=== PATIENT | female | born 1945 | race Caucasian/White ===

== ENCOUNTER 2020-04-18 09:03 | Outpatient (REF) | payer MEDICARE, MEDICAID, SELFPAY ==
[2020-04-18 12:24] LABS: Thyroid Stimulating Hormone 0.42 uIU/mL (0.32-4.0)
[2020-04-18 12:26] LABS: Alanine Aminotransferase 17 U/L (0-31); Albumin Level 4.4 g/dL (3.5-5.0); Alkaline Phosphatase 81 U/L (39-117); Anion Gap 15 (12-20); Aspartate Amino Transferase 18 U/L (5-31); Bilirubin Total 0.8 mg/dL (0.0-1.0); Blood Urea Nitrogen 20 mg/dL (9-16); Carbon Dioxide 26 mmol/L (22-29); Chloride 102 mmol/L (96-108); Estimated Glomerular Filt Rate > 60; Glucose Fasting 91 mg/dL (60-99); Potassium 4.2 mmol/l (3.3-5.1); Sodium 139 mmol/L (135-145)
== END 2020-04-18 09:04 | disposition home or self-care (01) ==
LOC: HO.HMGCLDS 09:03
PROVIDERS: PCP Internal Medicine; Visit Provider Internal Medicine
DX: E78.5 Hyperlipidemia, unspecified (principal); I10 Essential (primary) hypertension; R00.2 Palpitations
CPT/HCPCS: 80053; 84443

== ENCOUNTER → 2020-05-19 13:10 | Outpatient (REF) | payer MEDICARE, MEDICAID, SELFPAY ==
--- NOTE | 2020-05-19 13:15 | ECG_ITS ---
Hook-up date: 2020-05-19 13:27:00 Duration: 25:55:00 Test Indications: PALPITATIONS Medications: 062279 QRS complexes 777 Ventricular ectopics which represent <1 % of total QRS comp. 412 Supraventricular ectopics which represent <1 % of total QRS comp. * Paced QRS complexs which represent % of total QRS comp. VENTRICULAR ECTOPY 773 Isolated 0 Bigeminal Cycles 2 Couplets 0 Runs 0 Beats in Runs * Beats LONGEST at * BPM at :: -- * Beats FASTEST at * BPM at :: -- SUPRAVENTRICULAR ECTOPY 371 Isolated 13 Couplets 3 Runs 15 Beats in Runs 7 Beats LONGEST at 111 BPM at 20:34:39 2020-05-19 3 Beats FASTEST at 159 BPM at 20:34:35 2020-05-19 HEART RATES 46 MIN at 02:04:03 2020-05-20 76 AVG 212 MAX at 16:30:42 2020-05-19 LONGEST RR 1.8320 secs at 23:26:36 2020-05-19 S-T LEVELS Channel 1 - 128 mm at 13:27:00 2020-05-19 - 128 mm at 13:27:00 2020-05-19 Channel 2 - 128 mm at 13:27:00 2020-05-19 - 128 mm at 13:27:00 2020-05-19 Channel 3 - 128 mm at 03:24:61 -- - 128 mm at 03:24:61 Basic rhythm Normal sinus rhythm Intermittent Atrial fibrillation with rapid ventricular response , 14% of total time No long pause or profound bradycardia Short episodes of ectopic atrial tachycardia Frequent Premature ventricular complexes No diary submitted Referred By: Faith Elizondo Overread By: ART LANCASTER MD
== END ==
LOC: HO.CARD 13:10
PROVIDERS: PCP Internal Medicine; Visit Provider Internal Medicine
DX: R00.2 Palpitations (principal); E78.5 Hyperlipidemia, unspecified; I10 Essential (primary) hypertension
CPT/HCPCS: 93225; 93226

== ENCOUNTER 2020-10-17 14:34 | Outpatient (REF) | payer MEDICARE, MEDICAID, SELFPAY ==
[2020-10-17 16:42] LABS: Hematocrit 37.9 % (37-47); Hemoglobin 12.3 g/dl (12.0-16.0); Mean Corpuscular HGB Conc 32.5 g/dl (31.0-35.0); Mean Corpuscular Volume 89.4 fL (80-98); Mean Platelet Volume 10.6 fL (9.4-12.3); Platelet Count 337 X10*3/uL (160-400); Red Blood Count 4.24 X10*6/uL (4.20-5.50); White Blood Count 10.8 X10*3/uL (4.8-10.8)
[2020-10-17 17:08] LABS: Alanine Aminotransferase 22 U/L (0-31); Albumin Level 4.5 g/dL (3.5-5.0); Alkaline Phosphatase 93 U/L (39-117); Anion Gap 15 (12-20); Aspartate Amino Transferase 22 U/L (5-31); Bilirubin Total 0.9 mg/dL (0.0-1.0); Blood Urea Nitrogen 18 mg/dL (9-16); Calcium 9.5 mg/dL (8.4-10.2); Carbon Dioxide 25 mmol/L (22-29); Chloride 102 mmol/L (96-108); Estimated Glomerular Filt Rate > 60; Glucose Random 87 mg/dL (60-115); Potassium 4.2 mmol/L (3.3-5.1); Sodium 138 mmol/L (135-145); Total Protein 8.3 g/dL (6.5-8.0)
[2020-10-17 17:30] LABS: Vitamin B12 345 pg/mL (200-900)
== END 2020-10-17 14:35 | disposition home or self-care (01) ==
LOC: HO.HMGCLDS 14:34
PROVIDERS: PCP Internal Medicine; Visit Provider Internal Medicine
DX: E78.5 Hyperlipidemia, unspecified (principal); I10 Essential (primary) hypertension; I48.91 Unspecified atrial fibrillation
CPT/HCPCS: 36415; 80053; 82306; 82607; 85027

== ENCOUNTER 2021-01-22 08:23 | Outpatient (REF) | payer MEDICARE, MEDICAID, SELFPAY ==
[2021-01-22 11:45] LABS: Hematocrit 36.6 % (37-47); Hemoglobin 11.8 g/dl (12.0-16.0); Mean Corpuscular HGB Conc 32.2 g/dl (31.0-35.0); Mean Corpuscular Hemoglobin 28.6 pg (27.0-33.0); Mean Corpuscular Volume 88.6 fL (80-98); Mean Platelet Volume 10.5 fL (9.4-12.3); Platelet Count 304 X10*3/uL (160-400); Red Blood Count 4.13 X10*6/uL (4.20-5.50); Red Cell Distribution Width 13.1 % (11.0-16.0); White Blood Count 10.6 X10*3/uL (4.8-10.8)
[2021-01-22 11:47] LABS: Alanine Aminotransferase 16 U/L (0-31); Albumin Level 4.3 g/dL (3.5-5.0); Alkaline Phosphatase 89 U/L (39-117); Anion Gap 11 (12-20); Aspartate Amino Transferase 17 U/L (5-31); Bilirubin Total 0.6 mg/dL (0.0-1.0); Blood Urea Nitrogen 12 mg/dL (9-16); Calcium 9.6 mg/dL (8.4-10.2); Carbon Dioxide 28 mmol/L (22-29); Chloride 103 mmol/L (96-108); Estimated Glomerular Filt Rate > 60; Glucose Fasting 91 mg/dL (60-99); Potassium 4.1 mmol/L (3.3-5.1); Sodium 138 mmol/L (135-145); Total Protein 7.8 g/dL (6.5-8.0)
== END 2021-01-22 08:24 | disposition home or self-care (01) ==
LOC: HO.HMGCLDS 08:23
PROVIDERS: PCP Internal Medicine; Visit Provider Internal Medicine
DX: I48.91 Unspecified atrial fibrillation (principal); F41.9 Anxiety disorder, unspecified; E78.5 Hyperlipidemia, unspecified
CPT/HCPCS: 36415; 80053; 84443; 85027

== ENCOUNTER → 2021-03-06 08:13 | Outpatient (REF) | payer MEDICARE, MEDICAID, SELFPAY ==
--- NOTE | 2021-03-06 08:19 | CA_ITS ---
Transthoracic Echocardiogram Patient (Last, First, Middle): Rylie Villagomez, Gender: Female Date of : 1945 Age: 75 Procedure Date: 03/06/2021 Procedure Type: Transthoracic Echocardiogram Location: OP Height: 160.02 cm Weight: 77.11 kg BSA: 1.80 m2 Heart Rate: bpm BP: 120 / 90 mmHg Bandmill Operator: JOSE RAUL/MELONY Referring MD: Faith Elizondo MD Symptoms: I48.91 - Unspecified atrial fibrillation Study Quality: Fair Conclusions: - The left ventricular systolic function is low normal. The visually estimated ejection fraction is between 50-55%. - Normal right ventricular cavity size and systolic function. - There is mild mitral valve regurgitation. - There is mild to moderate tricuspid valve regurgitation. - There is no evidence of pericardial effusion. Findings Left Ventricle Normal left ventricular cavity size. There is normal left ventricular wall thickness. The left ventricular systolic function is low normal. The visually estimated ejection fraction is between 50-55%. Diastolic function is indeterminate on the basis of available data. Right Ventricle Normal right ventricular cavity size and systolic function. Atria The left atrium is likely dilated. Aortic Valve There is a normal trileaflet aortic valve. There is mild thickening of the aortic valve. There is no aortic valve stenosis. There is no aortic valve regurgitation. Mitral Valve The mitral valve appears normal. There is mild mitral valve regurgitation. There is no mitral valve stenosis. Pulmonic Valve Normal pulmonic valve structure and function. There is no pulmonic valve regurgitation. Tricuspid Valve Normal tricuspid valve structure. There is mild to moderate tricuspid valve regurgitation. Normal right atrial pressure. There is no evidence of pulmonary hypertension. Great Vessels All visible segments of the aorta are normal in size. The visualized portions of the pulmonary artery and branches are normal. Venous The inferior vena cava is normal in size and collapses greater than 50% with inspiration. Pericardium/Pleural There is no evidence of pericardial effusion. Prior Study Comparison No prior study available for comparison. Measurements 2D Linear Measurements IVSd: 0.85 0.6-0.9/0.6-1.0 cm LVIDd: 4.04 3.9-5.3/4.2-5.9 cm LVIDd Index: 2.24 2.4-3.2/2.2-3.1 cm/m2 LVIDs: 3.22 2.0-3.6 cm LVPWd: 0.88 0.7-1.1 cm Ao Root: 3.10 2.1-3.5 cm LA Diam: 3.90 2.7-3.8/3.0-4.0 cm LAIDs Index: 2.17 1.5-2.3 cm/m2 LV Mass: 132.04 67-162/88-224 g LV Mass Index: 73.36 43-95/49-115 g/m2 LVOT Diam: 2.00 3.0+(-)1.3 cm 2D Systolic Function EF 4C: 36.20 >55% EF 2C: 37.80 >55% Mitral Valve E'Lateral: 2.83 E'Medial: 3.26 Aortic Valve AoV Pk Camron: 0.98 AoV Mn Camron: 0.81 AoV VTI: 0.18 AoV Pk Grad: 4.00 Aov Mn Grad: 3.00 TASHIA Cont.VTI: 2.08 LVOT LVOT Pk Camron: 0.71 LVOT Mn Camron: 0.56 LVOT VTI: 0.12 LVOT Pk Grad: 2.00 LVOT Mn Grad: 1.00 LVOT Diam: 2.00 LVOT Area: 3.14 Diastolic Function E'Medial: 3.26 E' Laterial: 2.83 Right Ventricle TAPSE (mm): 1.30 TVS' Camron: 7.62 Tricuspid Valve TR Pk Camron: 2.66 TR Pk Grad: 28.00 RA Press: 3.00 RVSP: 31.00 Great Vessels Aorta Ao Root-2D: 3.10 2.0-3.7 cm Ao Asc: 3.00 2.1-3.4 cm Ao Arch: 2.80 Updated in Other Vendor System with Status of Final John Gonzalez MD electronically signed on 03/08/2021 1:31:36 PM with status of Final
== END ==
LOC: HO.CARD 08:13
PROVIDERS: PCP Internal Medicine; Visit Provider Internal Medicine
DX: I48.91 Unspecified atrial fibrillation (principal); F41.9 Anxiety disorder, unspecified; E78.5 Hyperlipidemia, unspecified
CPT/HCPCS: 93306

== ENCOUNTER 2021-08-10 08:39 | Outpatient (REF) | payer MEDICARE, MEDICAID, SELFPAY ==
[2021-08-10 11:53] LABS: Hematocrit 37.1 % (37.0-47.0); Hemoglobin 11.6 g/dl (12.0-16.0); Mean Corpuscular HGB Conc 31.3 g/dl (31.0-35.0); Mean Corpuscular Hemoglobin 28.3 pg (27.0-33.0); Mean Corpuscular Volume 90.5 fL (80.0-98.0); Mean Platelet Volume 10.5 fL (9.4-12.3); Platelet Count 281 X10*3/uL (160-400); White Blood Count 8.5 X10*3/uL (4.8-10.8)
[2021-08-10 12:26] LABS: Alanine Aminotransferase 15 U/L (0-31); Alkaline Phosphatase 75 U/L (39-117); Anion Gap 13 (12-20); Aspartate Amino Transferase 16 U/L (5-31); Bilirubin Total 0.5 mg/dL (0.0-1.0); Blood Urea Nitrogen 19 mg/dL (9-16); Calcium 9.2 mg/dL (8.4-10.2); Carbon Dioxide 26 mmol/L (22-29); Chloride 105 mmol/L (96-108); Cholesterol 174 mg/dL; Estimated Glomerular Filt Rate > 60; Glucose Fasting 103 mg/dL (60-99); HDL Cholesterol 43 mg/dL; Iron 61 mcg/dL (30-160); LDL Cholesterol Calculated 107 mg/dl; Percent Iron Saturation 18 % (15-50); Potassium 4.4 mmol/L (3.3-5.1); Sodium 140 mmol/L (135-145); Total Iron Binding Capacity 343 mcg/dL (228-428); Total Protein 7.7 g/dL (6.5-8.0); Triglycerides 120 mg/dL; Unsaturated Iron Binding 282 ug/dL
[2021-08-10 12:28] LABS: TSH reflex Free T4 0.77 uIU/mL (0.32-4.0)
== END 2021-08-10 08:40 | disposition home or self-care (01) ==
LOC: HO.HMGCLDS 08:39
PROVIDERS: PCP Internal Medicine; Visit Provider Internal Medicine
DX: F41.9 Anxiety disorder, unspecified (principal); I10 Essential (primary) hypertension; I48.91 Unspecified atrial fibrillation
CPT/HCPCS: 36415; 80053; 80061; 83540; 84443; 85027

== ENCOUNTER 2022-02-16 09:31 | Outpatient (REF) | payer MEDICARE, MEDICAID, SELFPAY ==
[2022-02-16 11:51] LABS: MANUAL DIFF FLAG NO
[2022-02-16 12:05] LABS: Basophils Absolute Auto 0.1 X10*3/uL (0.0-0.2); Basophils Percent Auto 0.5 % (0-2); Eosinophils Absolute Auto 0.5 X10*3/uL (0.0-0.4); Eosinophils Percent Auto 4.4 % (0-4); Hematocrit 38.8 % (37.0-47.0); Hemoglobin 12.5 g/dl (12.0-16.0); Imm Gran Abs Auto 0.12 X10*3/uL (0.00-0.03); Imm Gran Pct Auto 1.1 % (0.0-0.4); Lymphocytes Percent Auto 17.9 % (20-40); Mean Corpuscular HGB Conc 32.2 g/dl (31.0-35.0); Mean Corpuscular Hemoglobin 28.7 pg (27.0-33.0); Mean Platelet Volume 10.4 fL (9.4-12.3); Monocytes Absolute Auto 0.9 X10*3/uL (0.1-1.2); Monocytes Percent Auto 8.3 % (2-11); Neutrophils Absolute Auto 7.6 x10*3/uL (2.0-8.3); Neutrophils Percent Auto 67.8 % (45-73); Platelet Count 311 X10*3/uL (160-400); Red Blood Count 4.36 X10*6/uL (4.20-5.50); Red Cell Distribution Width 13.2 % (11.0-16.0); White Blood Count 11.3 X10*3/uL (4.8-10.8)
[2022-02-16 12:46] LABS: TSH reflex Free T4 0.72 uIU/mL (0.32-4.0)
[2022-02-16 12:49] LABS: Alanine Aminotransferase 20 U/L (0-31); Albumin Level 4.3 g/dL (3.5-5.0); Alkaline Phosphatase 85 U/L (39-117); Anion Gap 17 (12-20); Aspartate Amino Transferase 20 U/L (5-31); Bilirubin Total 0.6 mg/dL (0.0-1.0); Blood Urea Nitrogen 14 mg/dL (9-16); Carbon Dioxide 26 mmol/L (22-29); Chloride 102 mmol/L (96-108); Estimated Glomerular Filt Rate > 60; Glucose Random 109 mg/dL (60-115); Potassium 4.6 mmol/L (3.3-5.1); Sodium 140 mmol/L (135-145); Total Protein 7.9 g/dL (6.5-8.0)
[2022-02-16 12:54] LABS: B Type Natriuretic Peptide 188 pg/mL (<100)
== END 2022-02-16 09:32 | disposition home or self-care (01) ==
LOC: HO.HMGCLDS 09:31
PROVIDERS: PCP Internal Medicine; Visit Provider Internal Medicine
DX: R00.2 Palpitations (principal); I10 Essential (primary) hypertension; I48.91 Unspecified atrial fibrillation
CPT/HCPCS: 36415; 80053; 83880; 84443; 85025

== ENCOUNTER → 2022-03-26 07:38 | Outpatient (REF) | payer MEDICARE, MEDICAID, SELFPAY ==
--- NOTE | 2022-03-26 07:41 | HM_ITS ---
Conclusion: 1. Patient was monitored for total period of 3 days 2. Baseline was atrial fibrillation with average heart of 96 beats per minute within adequate rate control with heart rate greater than 100 beats of minute 32% of the time 3. No significant pauses noted 4. Total of 404 PVCs accounting for 0.11% of total beats accounting for occasional PVCs 5. Patient reported 3 events all of which correlated with AFib, 2 of the events while active correlated with atrial fibrillation rapid ventricular response. MTDD
== END ==
LOC: HO.CARD 07:38
PROVIDERS: PCP Internal Medicine; Visit Provider Internal Medicine
DX: I48.91 Unspecified atrial fibrillation (principal); R00.2 Palpitations; I10 Essential (primary) hypertension
CPT/HCPCS: 93242

== ENCOUNTER → 2022-06-01 15:01 | Outpatient (REF) | payer MEDICARE, MEDICAID, SELFPAY ==
--- NOTE | 2022-06-01 15:04 | CA_ITS ---
Transthoracic Echocardiogram Patient (Last, First, Middle): Rylie Villagomez, Gender: Female Date of : 1945 Age: 76 Procedure Date: 06/01/2022 Procedure Type: Transthoracic Echocardiogram Location: OP Height: 157.48 cm Weight: 73.94 kg BSA: 1.75 m2 Heart Rate: bpm BP: 110 / 70 mmHg Pit Hand: TO Referring MD: Faith Elizondo MD Symptoms: I48.91 - Unspecified atrial fibrillation Study Quality: Adequate ECG Rhythm: Atrial Fibrillation Conclusions: - The left ventricular systolic function is mildly decreased. The calculated ejection fraction is 49% by biplane method. - Moderate biatrial enlargement. - No obvious valvular pathology seen on this study. Findings Left Ventricle Normal left ventricular cavity size. There is normal left ventricular wall thickness. The left ventricular systolic function is mildly decreased. The calculated ejection fraction is 49% by biplane method. There is mild global hypokinesis. Diastolic function is indeterminate on the basis of available data. Right Ventricle Normal right ventricular cavity size and systolic function. Atria Moderate biatrial enlargement. Aortic Valve There is a normal trileaflet aortic valve. There is mild calcification of the aortic valve. There is no aortic valve stenosis. There is no aortic valve regurgitation. Mitral Valve The mitral valve appears normal. There is trace mitral valve regurgitation. There is no mitral valve stenosis. Pulmonic Valve The pulmonic valve is likely normal. Tricuspid Valve Normal tricuspid valve structure. There is mild tricuspid valve regurgitation. There is no evidence of pulmonary hypertension. Great Vessels The asc aorta is normal in size. Venous The inferior vena cava is normal in size and collapses greater than 50% with inspiration. Pericardium/Pleural There is no evidence of pericardial effusion. Prior Study Comparison Changes noted compared to prior study dated: 03/06/2021. Marginally lower LVEF, but could also be inter-observer variability. Recommendations, Care & Conclusions No obvious valvular pathology seen on this study. Measurements 2D Linear Measurements IVSd: 0.82 0.6-0.9/0.6-1.0 cm LVIDd: 4.78 3.9-5.3/4.2-5.9 cm LVIDd Index: 2.73 2.4-3.2/2.2-3.1 cm/m2 LVIDs: 3.25 2.0-3.6 cm LVPWd: 0.87 0.7-1.1 cm LA Diam: 4.00 2.7-3.8/3.0-4.0 cm LAIDs Index: 2.29 1.5-2.3 cm/m2 LV Mass: 167.96 67-162/88-224 g LV Mass Index: 95.98 43-95/49-115 g/m2 LVOT Diam: 1.80 3.0+(-)1.3 cm 2D Systolic Function EF 4C: 48.70 >55% EF 2C: 47.70 >55% EF BiP: 48.60 >55% Mitral Valve MV Pk E: 0.81 MV Decel Time: 227.00 E'Lateral: 11.10 E'Medial: 8.05 E/E' Med: 10.10 E/E' Lat: 7.30 PHT: 66.00 MVA PHT: 3.33 Decel [place]: 3.57 Aortic Valve AoV Pk Camron: 1.33 AoV Pk Grad: 7.00 LVOT LVOT Pk Camron: 0.87 LVOT Mn Camron: 0.58 LVOT VTI: 0.15 LVOT Pk Grad: 3.00 LVOT Mn Grad: 2.00 LVOT Diam: 1.80 LVOT Area: 2.54 Diastolic Function MV Pk E: 0.81 E'Medial: 8.05 E/E' Med: 10.10 E' Laterial: 11.10 E/E' Lat: 7.30 Right Ventricle TAPSE (mm): 23.00 TVS' Camron: 13.00 Tricuspid Valve TR Pk Camron: 2.47 TR Pk Grad: 24.00 RA Press: 3.00 RVSP: 27.00 Great Vessels Aorta Ao Asc: 3.20 2.1-3.4 cm Updated in Other Vendor System with Status of Final Meño Iverson MD electronically signed on 06/03/2022 12:50:21 PM with status of Final
== END ==
LOC: HO.CARD 15:01
PROVIDERS: Visit Provider Internal Medicine
DX: I48.91 Unspecified atrial fibrillation (principal); I10 Essential (primary) hypertension; E78.5 Hyperlipidemia, unspecified
CPT/HCPCS: 93306

== ENCOUNTER 2022-07-02 15:16 | Outpatient (REF) | payer MEDICARE, MEDICAID, SELFPAY ==
[2022-07-02 16:30] LABS: MANUAL DIFF FLAG NO
[2022-07-02 16:33] LABS: Basophils Absolute Auto 0.1 X10*3/uL (0.0-0.2); Basophils Percent Auto 0.6 % (0-2); Eosinophils Absolute Auto 0.7 X10*3/uL (0.0-0.4); Eosinophils Percent Auto 5.7 % (0-4); Hematocrit 38.5 % (37.0-47.0); Hemoglobin 12.2 g/dl (12.0-16.0); Imm Gran Pct Auto 0.8 % (0.0-0.4); Lymphocytes Absolute Auto 2.6 X10*3/uL (1.2-4.9); Lymphocytes Percent Auto 21.1 % (20-40); Mean Corpuscular HGB Conc 31.7 g/dl (31.0-35.0); Mean Corpuscular Hemoglobin 28.4 pg (27.0-33.0); Mean Corpuscular Volume 89.5 fL (80.0-98.0); Mean Platelet Volume 10.5 fL (9.4-12.3); Monocytes Absolute Auto 0.9 X10*3/uL (0.1-1.2); Monocytes Percent Auto 7.6 % (2-11); Neutrophils Absolute Auto 7.8 x10*3/uL (2.0-8.3); Neutrophils Percent Auto 64.2 % (45-73); Platelet Count 336 X10*3/uL (160-400); Red Cell Distribution Width 13.2 % (11.0-16.0); White Blood Count 12.2 X10*3/uL (4.8-10.8)
[2022-07-02 17:11] LABS: Alanine Aminotransferase 21 U/L (0-31); Albumin Level 4.4 g/dL (3.5-5.0); Alkaline Phosphatase 90 U/L (39-117); Anion Gap 17 (12-20); Aspartate Amino Transferase 23 U/L (5-31); Bilirubin Total 0.7 mg/dL (0.0-1.0); Blood Urea Nitrogen 17 mg/dL (9-16); Calcium 9.7 mg/dL (8.4-10.2); Carbon Dioxide 25 mmol/L (22-29); Chloride 102 mmol/L (96-108); Estimated Glomerular Filt Rate > 60; Glucose Random 98 mg/dL (60-115); Potassium 4.7 mmol/L (3.3-5.1); Sodium 139 mmol/L (135-145); Total Protein 7.9 g/dL (6.5-8.0)
[2022-07-02 17:26] LABS: TSH reflex Free T4 1.11 uIU/mL (0.32-4.0)
== END 2022-07-02 15:17 | disposition home or self-care (01) ==
LOC: HO.HMGCLDS 15:16
PROVIDERS: PCP Internal Medicine; Visit Provider Internal Medicine
DX: I48.91 Unspecified atrial fibrillation (principal); I10 Essential (primary) hypertension; E78.5 Hyperlipidemia, unspecified
CPT/HCPCS: 36415; 80053; 84443; 85025

== ENCOUNTER → 2022-07-05 12:29 | Outpatient (BNVA) | payer MEDICARE, MEDICAID, SELFPAY | PROVIDERS: PCP Internal Medicine; Referring Provider Internal Medicine; Visit Provider Internal Medicine | DX: I48.91 Unspecified atrial fibrillation (principal); I42.9 Cardiomyopathy, unspecified; R00.1 Bradycardia, unspecified; R00.2 Palpitations; I10 Essential (primary) hypertension | CPT/HCPCS: 99202 ==

== ENCOUNTER → 2022-08-04 07:36 | Outpatient (REF) | payer MEDICARE, MEDICAID, SELFPAY ==
--- NOTE | 2022-08-04 07:37 | HM_ITS ---
* Total monitoring time about 3 days. * Underlying rhythm is atrial fibrillation. * Average ventricular rate 72/Min. Range 40 to 114/Min. * About 28 pauses greater than 2.5 seconds. Longest pause 3 seconds during sleep hours. Not considered significant. * Rare PVCs with minimal burden. * No patient markers or diary. MTDD
== END ==
LOC: HO.CARD 07:36
PROVIDERS: PCP Internal Medicine; Visit Provider Internal Medicine
DX: I48.19 Other persistent atrial fibrillation (principal)
CPT/HCPCS: 93242

== ENCOUNTER → 2022-09-08 09:42 | Outpatient (BNVA) | payer MEDICARE, MEDICAID, SELFPAY | PROVIDERS: PCP Internal Medicine; Referring Provider Internal Medicine; Visit Provider Internal Medicine | DX: I48.19 Other persistent atrial fibrillation (principal); I42.9 Cardiomyopathy, unspecified; I10 Essential (primary) hypertension | CPT/HCPCS: 99212 ==

== ENCOUNTER 2022-09-09 07:17 | Outpatient (REF) | payer MEDICARE, MEDICAID, SELFPAY ==
[2022-09-09 12:07] LABS: Digoxin 0.5 ng/mL (0.8-2.0)
== END 2022-09-09 07:18 | disposition home or self-care (01) ==
LOC: HO.HMGCLDS 07:17
PROVIDERS: PCP Internal Medicine; Visit Provider Internal Medicine
DX: I48.19 Other persistent atrial fibrillation (principal)
CPT/HCPCS: 36415; 80162

== ENCOUNTER 2022-12-02 09:49 | Outpatient (REF) | payer MEDICARE, MEDICAID, SELFPAY ==
--- NOTE | ~2022-12-02 | XR_ITS ---
EXAMINATION: XR THORACIC SPINE CLINICAL INFORMATION: Back strain. COMPARISON: None available. TECHNIQUE: 3 frontal and lateral views of the thoracic spine were obtained. FINDINGS: There is bony demineralization. Vertebral body heights and alignment are normal. There is disc space narrowing at T4-T5. The remaining thoracic disc spaces are well-maintained. No acute fracture or spondylolisthesis is seen. There is multi-level thoracic spondylosis. The posterior elements are intact. The paravertebral soft tissues are unremarkable. XR/XR thoracic spine 2V IMPRESSION: 1. There is degenerative disc disease at T4-T5. 2. There is multi-level thoracic spondylosis. EXAMINATION: XR LUMBOSACRAL SPINE CLINICAL INFORMATION: Back strain. COMPARISON: None available. TECHNIQUE: AP and lateral views of the lumbar spine and lateral view of the lumbosacral junction. FINDINGS: There is bony demineralization. Vertebral body heights are normal. There is a mild lumbar rotatory dextroscoliosis. The lumbar disc spaces are well-maintained. There is a rudimentary disc space at L5-S1. No acute fracture or spondylolisthesis is seen. There is multi-level variable lumbar spondylosis, most pronounced at L5-S1. The posterior elements are intact. There are aortoiliac atherosclerotic calcifications. Pelvic surgical clips are noted. IMPRESSION: 1. The lumbar disc spaces are well-maintained. 2. There is multi-level lumbar spondylosis, most pronounced at L5-S1.
--- NOTE | ~2022-12-02 | XR_ITS ---
EXAMINATION: XR THORACIC SPINE CLINICAL INFORMATION: Back strain. COMPARISON: None available. TECHNIQUE: 3 frontal and lateral views of the thoracic spine were obtained. FINDINGS: There is bony demineralization. Vertebral body heights and alignment are normal. There is disc space narrowing at T4-T5. The remaining thoracic disc spaces are well-maintained. No acute fracture or spondylolisthesis is seen. There is multi-level thoracic spondylosis. The posterior elements are intact. The paravertebral soft tissues are unremarkable. XR/XR lumbar spine 2-3V IMPRESSION: 1. There is degenerative disc disease at T4-T5. 2. There is multi-level thoracic spondylosis. EXAMINATION: XR LUMBOSACRAL SPINE CLINICAL INFORMATION: Back strain. COMPARISON: None available. TECHNIQUE: AP and lateral views of the lumbar spine and lateral view of the lumbosacral junction. FINDINGS: There is bony demineralization. Vertebral body heights are normal. There is a mild lumbar rotatory dextroscoliosis. The lumbar disc spaces are well-maintained. There is a rudimentary disc space at L5-S1. No acute fracture or spondylolisthesis is seen. There is multi-level variable lumbar spondylosis, most pronounced at L5-S1. The posterior elements are intact. There are aortoiliac atherosclerotic calcifications. Pelvic surgical clips are noted. IMPRESSION: 1. The lumbar disc spaces are well-maintained. 2. There is multi-level lumbar spondylosis, most pronounced at L5-S1.
== END 2022-12-02 09:50 | disposition home or self-care (01) ==
LOC: HO.HMGCX 09:49
PROVIDERS: PCP Internal Medicine; Visit Provider Internal Medicine
DX: M47.816 Spondylosis without myelopathy or radiculopathy, lumbar region (principal); S29.012A Strain of muscle and tendon of back wall of thorax, initial encounter; X58.XXXA Exposure to other specified factors, initial encounter; Y93.9 Activity, unspecified; Y92.9 Unspecified place or not applicable; Y99.9 Unspecified external cause status
CPT/HCPCS: 72070; 72100

== ENCOUNTER 2023-01-12 08:26 | Outpatient (AMB) | payer MEDICARE, MEDICAID, SELFPAY ==
[2023-01-12 08:27] VITALS: BP 118/78; PULSE 57; O2SAT 97; BMI 27.6
--- NOTE | 2023-01-12 08:27 | MHC.PC.OV ---
Vital Signs 01/12/23 08:27 Height 5 ft 4 in Weight 161 lb BMI 27.6 BP 118/78 Blood Pressure Location Lt brachial Position Sitting Pulse 57 Pulse Source Pulse Oximeter Pulse Oximetry (%) 97 Oxygen Delivery Method Room Air Intake Visit Reasons: 4 month follow HTN Intake Note: Pt is here today for 4 months follow up visit. Allergies No Known Allergies Allergy (Verified 01/12/23 08:29) Medication List - Last Reconciled 01/12/23 by Faith Elizondo MD apixaban (Eliquis) 5 mg PO BID clotrimazole 1% 1 appl topical BID digoxin (Digox) 125 mcg PO DAILY irbesartan 300 mg PO DAILY metoprolol succinate ER 75 mg (1.5 x 50 mg) PO BID pravastatin 40 mg PO DAILY sertraline 50 mg PO DAILY triamcinolone acetonide 0.1% 1 appl topical DAILY triamterene-hydrochlorothiazid 37.5-25 mg 1 tab PO DAILY Tobacco use date assessed: 09/09/22 Fall risk assessment: No Falls in past year Last assessed Fall Risk: 01/12/23 Dental Screening Dental Screen Date: 01/12/23 Did you have a dental visit in the last 12 months?: Yes Did you have a dental problem in the last 6 months where you did not have access to dental care?: No Was dental information given to patient?: Patient has dentist HPI 4 month follow HTN HPI Details Patient presents for the follow-up on hypertension paroxysmal AFib hyperlipidemia, stable on current medications PFSH Medical History A-fib Annual physical exam Anxiety Bradycardia Chronic insomnia Endometrial ca HTN (hypertension) Hyperlipidemia Osteoarthritis Palpitations Rash Sinusitis Thyroid nodule Surgical History H/O colonoscopy No pertinent past surgical history S/P GUSTAVO-BSO Family History Father No problems noted. Mother No problems noted. Social History Housing: House Alcohol intake: never Patient Tobacco Use Status: Never used Tobacco e-Cigarette/Vaping Use: Never Used Current occupational status: retired Cognitive needs: No Hearing needs: No Vision needs: Yes Questionnaire Thrive Questionnaire Date Thrive assessed: 06/01/22 AUDIT C Alcohol Use Questionnaire (AUDIT-C) 1. How often do you have a drink containing alcohol?: Never 3. How often do you have six or more drinks on one occasion?: Never Total Score: 0 MADIE-7 AMB Questionnaire MADIE-7 Date MADIE - 7 assessed: 06/01/22 Source: Developed by Drs. Eddie Garcia, Elma Castaneda, Genaro Alvarado and colleagues, with an educational piter from [employer]. Review of Systems Const All systems reviewed & are unremarkable except as noted in HPI and below Reports no additional complaints Eyes Reports no additional complaints ENT Reports no additional complaints Card Reports no additional complaints Resp Reports no additional complaints GI Reports no additional complaints Reports no additional complaints Physical exam (Primary Care) Vital Signs: Last Vital Signs Pulse 57 01/12/23 08:27 BP 118/78 01/12/23 08:27 Pulse Ox 97 01/12/23 08:27 Oxygen Delivery Method Room Air 01/12/23 08:27 BMI result Body Mass Index 27.6 Tobacco/Smoking Status: Tobacco use Status Tobacco use date assessed 09/09/22 01/12/23 08:32 Patient Tobacco Use Status Never used Tobacco 01/12/23 08:32 e-Cigarette/Vaping Use Never Used 01/12/23 08:32 Thrive Assessment: Date of Thrive Assessment Date Thrive assessed 06/01/22 01/12/23 08:32 Const General: no acute distress HENMT Head: Yes normal to inspection Ears: hearing grossly normal bilaterally Throat: Yes posterior oropharynx normal Eyes General: appearance normal, both eyes and all related structures Neck Neck: Yes no lymphadenopathy and Yes supple Resp Effort & Inspection: normal respiratory effort Auscultation: clear to auscultation bilaterally Cardio Rhythm: regular rhythm Heart sounds: S1 normal heart sound present and S2 normal heart sound present GI Inspection: Yes normal to inspection Assessment and Plan Assessment & Plan (1) Cardiomyopathy: Comment: Echo 06/21 EF 49%, global hypokinesis, nl valves Code(s): I42.9 - Cardiomyopathy, unspecified Plan: Continue current medications repeat echocardiogram next year (2) Persistent atrial fibrillation: Code(s): I48.19 - Other persistent atrial fibrillation Plan: Continue Eliquis (3) HTN (hypertension): Code(s): I10 - Essential (primary) hypertension Plan: Continue current medications (4) Hyperlipidemia: Code(s): E78.5 - Hyperlipidemia, unspecified Plan: Continue statin follow-up in 6 months Orders: Orders Comprehensive Met. Panel Today I10 - Essential (primary) hypertension, I42.9 - Cardiomyopathy, unspecified, I48.19 - Other persistent atrial fibrillation Complete Blood Count Auto Diff Today I10 - Essential (primary) hypertension, I42.9 - Cardiomyopathy, unspecified, I48.19 - Other persistent atrial fibrillation Digoxin Today I48.91 - Unspecified atrial fibrillation Coding Level of Care Code Est Pt Level 4 (69686) Diagnoses Cardiomyopathy I42.9 Persistent atrial fibrillation I48.19 HTN (hypertension) I10 Hyperlipidemia E78.5
== END 2023-01-12 09:00 | disposition home or self-care (01) ==
PROVIDERS: Visit Provider Internal Medicine
DX: I42.9 Cardiomyopathy, unspecified (principal); I48.19 Other persistent atrial fibrillation; I10 Essential (primary) hypertension; E78.5 Hyperlipidemia, unspecified
CPT/HCPCS: 99214

== ENCOUNTER 2023-01-12 08:52 | Outpatient (REF) | payer MEDICARE, MEDICAID, SELFPAY ==
[2023-01-12 11:14] LABS: MANUAL DIFF FLAG NO
[2023-01-12 11:32] LABS: Basophils Absolute Auto 0.1 X10*3/uL (0.0-0.2); Basophils Percent Auto 0.7 % (0-2); Eosinophils Absolute Auto 0.3 X10*3/uL (0.0-0.4); Eosinophils Percent Auto 2.8 % (0-4); Hematocrit 41.4 % (37.0-47.0); Imm Gran Pct Auto 0.8 % (0.0-0.4); Lymphocytes Absolute Auto 2.2 X10*3/uL (1.2-4.9); Lymphocytes Percent Auto 17.9 % (20-40); Mean Corpuscular HGB Conc 31.4 g/dl (31.0-35.0); Mean Corpuscular Hemoglobin 28.1 pg (27.0-33.0); Mean Corpuscular Volume 89.6 fL (80.0-98.0); Mean Platelet Volume 10.5 fL (9.4-12.3); Monocytes Absolute Auto 1.1 X10*3/uL (0.1-1.2); Neutrophils Absolute Auto 8.5 x10*3/uL (2.0-8.3); Neutrophils Percent Auto 68.8 % (45-73); Platelet Count 329 X10*3/uL (160-400); Red Blood Count 4.62 X10*6/uL (4.20-5.50); Red Cell Distribution Width 14.1 % (11.0-16.0); White Blood Count 12.3 X10*3/uL (4.8-10.8)
[2023-01-12 12:01] LABS: Alanine Aminotransferase 28 U/L (0-31); Albumin Level 4.1 g/dL (3.5-5.0); Alkaline Phosphatase 78 U/L (39-117); Anion Gap 11 (12-20); Aspartate Amino Transferase 21 U/L (5-31); Bilirubin Total 0.5 mg/dL (0.0-1.0); Blood Urea Nitrogen 20 mg/dL (9-16); Calcium 9.4 mg/dL (8.4-10.2); Carbon Dioxide 28 mmol/L (22-29); Chloride 104 mmol/L (96-108); Cholesterol 182 mg/dL; Estimated Glomerular Filt Rate > 60; Glucose Fasting 100 mg/dL (60-99); Glucose Random 100 mg/dL (60-115); HDL Cholesterol 44 mg/dL; LDL Cholesterol Calculated 108 mg/dl; Potassium 4.5 mmol/L (3.3-5.1); Sodium 138 mmol/L (135-145); Total Protein 8.2 g/dL (6.5-8.0); Triglycerides 150 mg/dL
[2023-01-12 12:10] LABS: Vitamin D 25-OH Total 24.5 ng/mL (>30)
[2023-01-12 12:39] LABS: Digoxin 1.3 ng/mL (0.8-2.0)
== END 2023-01-12 08:53 | disposition home or self-care (01) ==
LOC: HO.HMGCLDS 08:52
PROVIDERS: PCP Internal Medicine; Visit Provider Internal Medicine
DX: I10 Essential (primary) hypertension (principal); I42.9 Cardiomyopathy, unspecified; I48.19 Other persistent atrial fibrillation; E55.9 Vitamin D deficiency, unspecified; E78.5 Hyperlipidemia, unspecified; I48.91 Unspecified atrial fibrillation
CPT/HCPCS: 36415; 80053; 80061; 80162; 82306; 85025

== ENCOUNTER → 2023-03-29 08:02 | Outpatient (REF) | payer MEDICARE, MEDICAID, SELFPAY ==
--- NOTE | 2023-03-29 08:05 | CA_ITS ---
Transthoracic Echocardiogram Patient (Last, First, Middle): Rylie Villagomez, Gender: Female Date of : 1945 Age: 77 Procedure Date: 03/29/2023 Procedure Type: Transthoracic Echocardiogram Location: OP Height: 157.48 cm Weight: 75.75 kg BSA: 1.77 m2 Heart Rate: bpm BP: 120 / 72 mmHg Neon Technician: SB Referring MD: Meño Iverson MD Symptoms: I42.9 - Cardiomyopathy, unspecified Study Quality: Adequate ECG Rhythm: Atrial Fibrillation Conclusions: - The left ventricular systolic function is normal. The visually estimated ejection fraction is between 55-60%. - No obvious valvular pathology seen on this study. Findings Left Ventricle Normal left ventricular cavity size. There is normal left ventricular wall thickness. The left ventricular systolic function is normal. The visually estimated ejection fraction is between 55-60%. There is no evidence of regional wall motion abnormalities. Diastolic function is indeterminate on the basis of available data. Right Ventricle Normal right ventricular cavity size and systolic function. Atria Both atria are likely dilated. Aortic Valve There is a normal trileaflet aortic valve. There is mild calcification of the aortic valve. There is no aortic valve stenosis. There is no aortic valve regurgitation. Mitral Valve The mitral valve appears normal. There is no mitral valve regurgitation. There is no mitral valve stenosis. Pulmonic Valve There is trace pulmonic valve regurgitation. Tricuspid Valve Normal tricuspid valve structure. There is mild tricuspid valve regurgitation. There is no evidence of pulmonary hypertension. Great Vessels The asc aorta is normal in size. Venous The inferior vena cava is normal in size and collapses greater than 50% with inspiration. Pericardium/Pleural There is no evidence of pericardial effusion. Prior Study Comparison Changes noted compared to prior study dated: 06/01/2022. LVEF improved. Recommendations, Care & Conclusions No obvious valvular pathology seen on this study. Measurements 2D Linear Measurements IVSd: 0.71 0.6-0.9/0.6-1.0 cm LVIDd: 4.43 3.9-5.3/4.2-5.9 cm LVIDd Index: 2.50 2.4-3.2/2.2-3.1 cm/m2 LVIDs: 3.05 2.0-3.6 cm LVPWd: 0.67 0.7-1.1 cm LA Diam: 4.10 2.7-3.8/3.0-4.0 cm LAIDs Index: 2.32 1.5-2.3 cm/m2 LV Mass: 113.66 67-162/88-224 g LV Mass Index: 64.21 43-95/49-115 g/m2 LVOT Diam: 1.90 3.0+(-)1.3 cm 2D Systolic Function EF 4C: 60.70 >55% EF 2C: 54.40 >55% EF BiP: 58.50 >55% Mitral Valve MV Pk E: 1.05 Aortic Valve AoV Pk Camron: 1.33 AoV Mn Camron: 0.90 AoV VTI: 0.26 AoV Pk Grad: 7.00 Aov Mn Grad: 4.00 TASHIA Cont.VTI: 1.99 LVOT LVOT Pk Camron: 0.95 LVOT Mn Camron: 0.66 LVOT VTI: 0.18 LVOT Pk Grad: 4.00 LVOT Mn Grad: 2.00 LVOT Diam: 1.90 LVOT Area: 2.84 Diastolic Function MV Pk E: 1.05 Right Ventricle TAPSE (mm): 16.10 TVS' Camron: 13.60 Tricuspid Valve TR Pk Camron: 2.64 TR Pk Grad: 28.00 RA Press: 8.00 RVSP: 36.00 Great Vessels Aorta Sinus of Valsalva: 2.80 2.0-3.5 cm Ao Asc: 3.10 2.1-3.4 cm Pulmonary Valve PV Pk Camron: 1.07 Peak PV Grad: 5.00 Updated in Other Vendor System with Status of Final Meño Iverson MD electronically signed on 03/29/2023 11:50:35 AM with status of Final
== END ==
LOC: HO.CARD 08:02
PROVIDERS: PCP Internal Medicine; Visit Provider Internal Medicine
DX: I42.9 Cardiomyopathy, unspecified (principal)
CPT/HCPCS: 93306

== ENCOUNTER → 2023-03-29 08:05 | Outpatient (BNV) | payer MEDICARE, MEDICAID, SELFPAY | PROVIDERS: PCP Internal Medicine; Visit Provider Internal Medicine | DX: I36.1 Nonrheumatic tricuspid (valve) insufficiency (principal); I42.9 Cardiomyopathy, unspecified | CPT/HCPCS: 93306 ==

== ENCOUNTER 2023-04-18 09:35 | Outpatient (AMB) | payer MEDICARE, MEDICAID, SELFPAY ==
[2023-04-18 09:37] VITALS: BP 114/72; PULSE 88; BMI 28.8
--- NOTE | 2023-04-18 09:37 | MHC.OFFVIS ---
Intake Vital Signs 04/18/23 09:37 Height 5 ft 4 in Weight 167 lb 8.821 oz BMI 28.8 BP 114/72 Blood Pressure Location Lt brachial Position Sitting Pulse 88 Pulse Source Pulse Oximeter Intake Visit Reasons: follow up echo Intake Note: follow echo Button Inspector Required: No Clinical Project Coordinator: Clinical Project Coordinator Present Accompanied by: Daughter Allergies No Known Allergies Allergy (Verified 04/18/23 09:40) Medication List - Last Reconciled 04/18/23 by Donna Dominguez NP-C apixaban (Eliquis) 5 mg PO BID clotrimazole 1% 1 appl topical BID digoxin (Digox) 125 mcg PO DAILY irbesartan 300 mg PO DAILY metoprolol succinate ER 75 mg (1.5 x 50 mg) PO BID pravastatin 40 mg PO DAILY sertraline 50 mg PO DAILY triamcinolone acetonide 0.1% 1 appl topical DAILY triamterene-hydrochlorothiazid 37.5-25 mg 1 tab PO DAILY HPI follow up echo HPI Details Fox is a 77-year-old female past medical history of hypertension, hyperlipidemia, atrial fibrillation, mild cardiomyopathy who presents for follow-up. Today she reports that she has been feeling well with no concerning symptoms. She denies chest discomfort at rest or with activity. No shortness of breath, palpitations, presyncope, syncope, PND, orthopnea or edema. She does light activities around the house which she tolerates well. Daughter is present. Daughter assisting with translation at their request, permit signed. [facility] Medical History Sinusitis Rash Annual physical exam A-fib Anxiety Bradycardia Palpitations Osteoarthritis Endometrial ca Thyroid nodule Chronic insomnia Hyperlipidemia HTN (hypertension) Surgical History H/O colonoscopy S/P GUSTAVO-BSO No pertinent past surgical history Family History Father No problems noted. Mother No problems noted. Social History Housing: House Alcohol intake: never Patient Tobacco Use Status: Never used Tobacco e-Cigarette/Vaping Use: Never Used Current occupational status: retired Cognitive needs: No Hearing needs: No Vision needs: Yes Review of Systems Const All systems reviewed & are unremarkable except as noted in HPI and below ENT Denies dizziness Card Denies chest pain, Denies chest pain at rest, Denies chest pain with activity, Denies rapid heart rate, Denies pedal edema, Denies edema, Denies leg edema, Denies lightheadedness, Denies palpitations, Denies dyspnea, Denies dyspnea on exertion and Denies orthopnea Resp Denies cough, Denies dyspnea and Denies dyspnea on exertion GI Denies hematochezia and Denies change in stool character Musc Denies abnormal gait, Denies limited range of motion, Denies muscle cramps, Denies muscle weakness, Denies numbness, Denies radiating pain into limb, Denies stiffness and Denies tingling Neuro Denies abnormal gait, Denies dizziness, Denies numbness and Denies tingling Endo Denies palpitations Physical Exam Vital Signs: Last Vital Signs Pulse 88 04/18/23 09:37 BP 114/72 04/18/23 09:37 BMI result Body Mass Index 28.8 Const General: cooperative, healthy appearing, comfortable and no acute distress Orientation/consciousness: patient oriented x3 Neck Neck: Yes normal visual inspection Resp Effort & Inspection: normal respiratory effort Auscultation: clear to auscultation bilaterally, no crackles, no rales, no rhonchi and no wheezes Cardio Jugular venous distension: no JVD Rate: regular rate Rhythm: regular rhythm Heart sounds: S1 normal heart sound present, S2 normal heart sound present, no murmurs and no rubs Neuro General: patient oriented x3 Extrem General: Yes normal to inspection and No no pedal edema Psych Appearance: grossly normal Mental Status: mental status grossly normal Speech and movement: Normal speech and movement present Assessment & Plan Assessment & Plan (1) A-fib: Comment: with RVR , ECHO 05/20 reduced EF 49%, global hypokinesis, nl valves, Code(s): I48.91 - Unspecified atrial fibrillation Qualifiers: Atrial fibrillation type: longstanding persistent Qualified Code(s): I48.11 - Longstanding persistent atrial fibrillation Plan: Persistent atrial fibrillation, treated with heart rate control. Currently on metoprolol and digoxin. Digoxin level 1.3 done 01/12/2023. Will plan for repeat digoxin level and BMP in May. Pulse is irregularly irregular on examination today, rate is normal range. She is on Eliquis for anticoagulation. No bleeding issues reported. Recent creatinine level 0.87. An echocardiogram was done 03/29/2023 showing EF 55-60%, no valve abnormalities. Improvement in EF likely reflects better rate control with AFib, reviewed with her. Continue current med management. (2) Cardiomyopathy: Comment: Echo 06/21 EF 49%, global hypokinesis, nl valves Code(s): I42.9 - Cardiomyopathy, unspecified Plan: EF previously mildly reduced. Thought to be related to AFib with uncontrolled rates. Now on better rate control and EF has normalized. (3) HTN (hypertension): Code(s): I10 - Essential (primary) hypertension Plan: Well controlled at present. No med changes made Orders: Orders Basic Metabolic Panel 2 Months I48.91 - Unspecified atrial fibrillation Digoxin 2 Months I48.91 - Unspecified atrial fibrillation Coding Level of Care Code Est Pt Level 4 (81664) Diagnoses Longstanding persistent atrial fibrillation I48.11 Atrial fibrillation type: longstanding persistent Cardiomyopathy I42.9 HTN (hypertension) I10 Time Spent (min) 28
== END 2023-04-18 10:21 | disposition home or self-care (01) ==
PROVIDERS: PCP Internal Medicine; Visit Provider Nurse Practitioner Family
DX: I48.11 Longstanding persistent atrial fibrillation (principal); I42.9 Cardiomyopathy, unspecified; I10 Essential (primary) hypertension
CPT/HCPCS: 99214

== ENCOUNTER → 2023-04-18 09:35 | Outpatient (BNVA) | payer MEDICARE, MEDICAID, SELFPAY | PROVIDERS: PCP Internal Medicine; Visit Provider Nurse Practitioner Family | DX: I48.11 Longstanding persistent atrial fibrillation (principal); I42.9 Cardiomyopathy, unspecified; I10 Essential (primary) hypertension | CPT/HCPCS: 99212 ==

== ENCOUNTER 2023-07-09 08:04 | Outpatient (REF) | payer MEDICARE, MEDICAID, SELFPAY ==
[2023-07-09 11:00] LABS: MANUAL DIFF FLAG NO
[2023-07-09 11:04] LABS: Basophils Absolute Auto 0.1 X10*3/uL (0.0-0.2); Basophils Percent Auto 0.7 % (0-2); Eosinophils Absolute Auto 0.2 X10*3/uL (0.0-0.4); Eosinophils Percent Auto 2.1 % (0-4); Hematocrit 38.5 % (37.0-47.0); Hemoglobin 12.4 g/dl (12.0-16.0); Imm Gran Abs Auto 0.08 X10*3/uL (0.00-0.03); Imm Gran Pct Auto 0.8 % (0.0-0.4); Lymphocytes Absolute Auto 2.2 X10*3/uL (1.2-4.9); Lymphocytes Percent Auto 21.3 % (20-40); Mean Corpuscular HGB Conc 32.2 g/dl (31.0-35.0); Mean Platelet Volume 10.6 fL (9.4-12.3); Monocytes Percent Auto 9.7 % (2-11); Neutrophils Absolute Auto 6.7 x10*3/uL (2.0-8.3); Neutrophils Percent Auto 65.4 % (45-73); Platelet Count 271 X10*3/uL (160-400); Red Blood Count 4.28 X10*6/uL (4.20-5.50); Red Cell Distribution Width 13.3 % (11.0-16.0); White Blood Count 10.3 X10*3/uL (4.8-10.8)
[2023-07-09 11:23] LABS: Alanine Aminotransferase 42 U/L (0-31); Albumin Level 3.8 g/dL (3.5-5.0); Alkaline Phosphatase 79 U/L (39-117); Anion Gap 14 (12-20); Aspartate Amino Transferase 40 U/L (5-31); Bilirubin Total 0.7 mg/dL (0.0-1.0); Blood Urea Nitrogen 14 mg/dL (9-16); Calcium 9.1 mg/dL (8.4-10.2); Carbon Dioxide 26 mmol/L (22-29); Chloride 101 mmol/L (96-108); Cholesterol 159 mg/dL (<200); Estimated Glomerular Filt Rate > 60; Glucose Fasting 119 mg/dL (60-99); HDL Cholesterol 32 mg/dL (>40); LDL Cholesterol Calculated 86 mg/dL (<100); Sodium 137 mmol/L (135-145); Total Protein 7.8 g/dL (6.5-8.0); Triglycerides 205 mg/dL (<150)
[2023-07-09 11:41] LABS: TSH reflex Free T4 1.45 uIU/mL (0.32-4.0); Vitamin D 25-OH Total 23.3 ng/mL (>30)
== END 2023-07-09 08:05 | disposition home or self-care (01) ==
LOC: HO.HMGCLDS 08:04
PROVIDERS: PCP Internal Medicine; Visit Provider Internal Medicine
DX: I42.9 Cardiomyopathy, unspecified (principal); I48.11 Longstanding persistent atrial fibrillation; E78.5 Hyperlipidemia, unspecified; I10 Essential (primary) hypertension
CPT/HCPCS: 36415; 80053; 80061; 82306; 84443; 85025

== ENCOUNTER 2023-07-18 11:19 | Outpatient (AMB) | payer MEDICARE, MEDICAID, SELFPAY ==
[2023-07-18 11:21] VITALS: BP 126/72; PULSE 63; O2SAT 97; BMI 27.6
--- NOTE | 2023-07-18 11:21 | A.OFFPC_ITS ---
Vital Signs 07/18/23 11:21 Height 5 ft 4 in Weight 161 lb BMI 27.6 BP 126/72 Blood Pressure Location Lt brachial Position Sitting Pulse 63 Pulse Source Pulse Oximeter Pulse Oximetry (%) 97 Oxygen Delivery Method Room Air Intake Visit Reasons: Annual PE Intake Note: Pt is here today for PE. Allergies No Known Allergies Allergy (Verified 07/18/23 11:23) Medication List - Last Reconciled 07/18/23 by Faith Elizondo MD apixaban (Eliquis) 5 mg PO BID clotrimazole 1% 1 appl topical BID digoxin (Digox) 125 mcg PO DAILY irbesartan 300 mg PO DAILY metoprolol succinate ER 75 mg (1.5 x 50 mg) PO BID pravastatin 40 mg PO DAILY sertraline 50 mg PO DAILY triamcinolone acetonide 0.1% 1 appl topical DAILY triamterene-hydrochlorothiazid 37.5-25 mg 1 tab PO DAILY Tobacco use date assessed: 07/18/23 Fall risk assessment: No Falls in past year Last assessed Fall Risk: 07/18/23 Dental Screening Dental Screen Date: 07/18/23 Did you have a dental visit in the last 12 months?: Yes Did you have a dental problem in the last 6 months where you did not have access to dental care?: No Was dental information given to patient?: Patient has dentist HPI Annual PE HPI Details Patient presents for physical [facility] Medical History (Updated 07/18/23 @ 12:12 by Faith Elizondo MD) Sinusitis Rash Annual physical exam A-fib Anxiety Osteoarthritis Endometrial ca Thyroid nodule Chronic insomnia Hyperlipidemia HTN (hypertension) Surgical History H/O colonoscopy S/P GUSTAVO-BSO No pertinent past surgical history Family History Father No problems noted. Mother No problems noted. Social History Housing: House Alcohol intake: never Patient Tobacco Use Status: Never used Tobacco e-Cigarette/Vaping Use: Never Used Current occupational status: retired Cognitive needs: No Hearing needs: No Vision needs: Yes Questionnaire PHQ-9 Over the last 2 weeks, how often have you been bothered by any of the following problems? 1. Little interest or pleasure in doing things: not at all 2. Feeling down, depressed, or hopeless: not at all 3. Trouble falling or staying asleep, or sleeping too much: not at all 4. Feeling tired or having little energy: not at all 5. Poor appetite or overeating: not at all 6. Feeling bad about yourself - or that you are a failure or have let yourself or your family down: not at all 7. Trouble concentrating on things, such as reading the newspaper or watching television: not at all 8. Moving or speaking so slowly that other people could have noticed. Or the opposite - being so fidgety or restless that you have been moving around a lot more than usual: not at all 9. Thoughts that you would be better off or of hurting yourself in some way: not at all Total score: 0 Depression Screening Interpretation: Negative Depression Screening Done: Yes Source: Developed by Drs. Eddie Garcia, Elma Castaneda, Genaro Alvarado and colleagues, with an educational piter from [employer]. Thrive Questionnaire Date Thrive assessed: 07/18/23 I am a: Patient What is your living situation today?: I have a steady place to live Within the past 12 months, did the food you bought not last and you didn't have the money to get more?: Never true Within the past 12 months, did you worry whether your food would run out before you got money to buy more?: Never true Do you have trouble paying for medicines?: No Do you have trouble getting transportation to medical appointments?: No Do you have trouble paying your heating and electricity bill?: No Do you have trouble taking care of your child, family member or friend?: No Do you have trouble with day-to-day activities such as bathing, preparing meals, shopping, managing finances, etc.?: No Are you currently unemployed and looking for a job?: No Are you interested in more education?: No Please select the resources that you would like help with: None Currently or been in a relationship where the following occur: no concerns re ported THRIVE Score: 0 AUDIT C Alcohol Use Questionnaire (AUDIT-C) 1. How often do you have a drink containing alcohol?: Never 3. How often do you have six or more drinks on one occasion?: Never Total Score: 0 MADIE-7 AMB Questionnaire MADIE-7 Date MADIE - 7 assessed: 07/18/23 Feeling nervous, anxious, or on edge: 0 = Not at all Not being able to stop or control worryin = Not at all Worrying too much about different things: 0 = Not at all Trouble relaxin = Not at all Being so restless that it is hard to sit still: 0 = Not at all Becoming easily annoyed or irritable: 0 = Not at all Feeling afraid as if something awful might happen: 0 = Not at all Total MADIE-7 score (0-4 normal; 5-9 mild; 10-14 moderate; 15-21 severe): 0 Source: Developed by Drs. Eddie Garcia, Elma Castaneda, Genaro Alvarado and colleagues, with an educational piter from [employer]. Review of Systems Const All systems reviewed & are unremarkable except as noted in HPI and below Reports no additional complaints Eyes Reports no additional complaints ENT Reports no additional complaints Card Reports no additional complaints Resp Reports no additional complaints GI Reports no additional complaints Reports no additional complaints Physical exam (Primary Care) Vital Signs: Last Vital Signs Pulse 63 07/18/23 11:21 BP 126/72 07/18/23 11:21 Pulse Ox 97 07/18/23 11:21 Oxygen Delivery Method Room Air 07/18/23 11:21 BMI result Body Mass Index 27.6 Tobacco/Smoking Status: Tobacco use Status Tobacco use date assessed 07/18/23 07/18/23 11:27 Patient Tobacco Use Status Never used Tobacco 07/18/23 11:27 e-Cigarette/Vaping Use Never Used 07/18/23 11:27 PHQ-9: PHQ-9 Score PHQ-9: Total score 0 07/18/23 11:27 Depression Screening Interpretation: Negative Thrive Assessment: Date of Thrive Assessment Date Thrive assessed 07/18/23 07/18/23 11:27 Currently or been in a relationship where the following occur: no concerns reported Const General: no acute distress HENMT Head: Yes normal to inspection Ears: hearing grossly normal bilaterally Face and sinus: Yes normal facial exam Throat: Yes posterior oropharynx normal Eyes General: appearance normal, both eyes and all related structures Neck Neck: Yes no lymphadenopathy and Yes supple Resp Effort & Inspection: normal respiratory effort Auscultation: clear to auscultation bilaterally Cardio Rhythm: regular rhythm Heart sounds: S1 normal heart sound present and S2 normal heart sound present GI Inspection: Yes normal to inspection Palpation (GI): Soft to palpation Percussion: Yes normal to percussion Auscultation: normal bowel sounds Assessment and Plan Assessment & Plan (1) Postmenopausal: Code(s): Z78.0 - Asymptomatic menopausal state Plan: Check DEXA, patient was advised to take 2000 units of vitamin-D (2) A-fib: Comment: with RVR , ECHO 05/20 reduced EF 49%, improved ejection fraction to 60% 03/21 Code(s): I48.91 - Unspecified atrial fibrillation Qualifiers: Atrial fibrillation type: longstanding persistent Qualified Code(s): I48.11 - Longstanding persistent atrial fibrillation Plan: Continue current medications, check Holter (3) Cardiomyopathy: Comment: Echo 06/21 EF 49%, global hypokinesis, nl valves, repeat Echo 03/21 EF 60%, nl valves Code(s): I42.9 - Cardiomyopathy, unspecified (4) Annual physical exam: Code(s): Z00.00 - Encounter for general adult medical examination without abnormal findings Plan: Well-balanced diet regular physical activity discussed with the patient (5) Anxiety: Code(s): F41.9 - Anxiety disorder, unspecified Plan: Continue Zoloft (6) Hyperlipidemia: Code(s): E78.5 - Hyperlipidemia, unspecified Plan: Continue statin (7) HTN (hypertension): Code(s): I10 - Essential (primary) hypertension Plan: Continue current medications, follow-up in 4 months Orders: Orders XR DEXA axial skeleton Today Z78.0 - Asymptomatic menopausal state Vitamin D 25-OH Total 4 Months I42.9 - Cardiomyopathy, unspecified, I48.19 - Other persistent atrial fibrillation Hemoglobin A1c 4 Months I42.9 - Cardiomyopathy, unspecified, I48.19 - Other persistent atrial fibrillation ECG 3 day holter monitor Today I42.9 - Cardiomyopathy, unspecified, I48.19 - Other persistent atrial fibrillation, I48.91 - Unspecified atrial fibrillation Comprehensive Perkins. Panel Fast 4 Months I42.9 - Cardiomyopathy, unspecified, I48.19 - Other persistent atrial fibrillation Complete Blood Count Auto Diff 4 Months I42.9 - Cardiomyopathy, unspecified, I48.19 - Other persistent atrial fibrillation Lipid Panel 4 Months I42.9 - Cardiomyopathy, unspecified, I48.19 - Other persistent atrial fibrillation Medications: New ketoconazole 2% 1 appl topical DAILY 15 grams 0RF Refilled apixaban (Eliquis) 5 mg PO BID 180 tabs 3RF Coding Level of Care Code Est Pt Prev Care >65y(81669) Diagnoses Postmenopausal Z78.0 Longstanding persistent atrial fibrillation I48.11 Atrial fibrillation type: longstanding persistent Cardiomyopathy I42.9 Annual physical exam Z00.00 Anxiety F41.9 Hyperlipidemia E78.5 HTN (hypertension) I10
== END 2023-07-18 12:06 | disposition home or self-care (01) ==
PROVIDERS: PCP Internal Medicine; Visit Provider Internal Medicine
DX: Z00.00 Encounter for general adult medical examination without abnormal findings (principal); I48.11 Longstanding persistent atrial fibrillation; I42.9 Cardiomyopathy, unspecified; Z78.0 Asymptomatic menopausal state; F41.9 Anxiety disorder, unspecified; E78.5 Hyperlipidemia, unspecified; I10 Essential (primary) hypertension
CPT/HCPCS: 99397

== ENCOUNTER → 2023-07-25 07:35 | Outpatient (REF) | payer MEDICARE, MEDICAID, SELFPAY ==
--- NOTE | 2023-07-25 07:47 | HM_ITS ---
Conclusion: 1. Patient was monitored for total period of 3 days 2. Baseline was atrial fibrillation with average heart of 79 beats per minute with adequate rate control 3. No significant pauses greater than 3 seconds noted with rare PVCs 4. No patient reported symptoms or events MTDD
== END ==
LOC: HO.CARD 07:35
PROVIDERS: PCP Internal Medicine; Visit Provider Internal Medicine
DX: I48.19 Other persistent atrial fibrillation (principal); I42.9 Cardiomyopathy, unspecified
CPT/HCPCS: 93242

== ENCOUNTER → 2023-07-25 07:47 | Outpatient (BNV) | payer MEDICARE, MEDICAID, SELFPAY | PROVIDERS: PCP Internal Medicine; Visit Provider Internal Medicine Cardiovascular Disease | DX: I48.19 Other persistent atrial fibrillation (principal) | CPT/HCPCS: 93244 ==

== ENCOUNTER 2023-08-04 14:20 | Outpatient (REF) | payer MEDICARE, MEDICAID, SELFPAY ==
--- NOTE | ~2023-08-04 | MM_ITS ---
EXAMINATION: BONE DENSITOMETRY CLINICAL INDICATION: Asymptomatic menopausal state. COMPARISON: This is the patient's baseline examination. TECHNIQUE: Using a [employer] DXA System (software version: 13.1) manufactured by [employer], dual-energy x-ray absorptiometry was performed of the lumbar spine and left hip. The images are of good technical quality. Summary results are attached. FINDINGS: LEFT FEMUR, NECK: BMD 0.772 g/cm2, Z-score -0.2, T-score -1.9, osteopenia. LEFT FEMUR, TOTAL: BMD 0.892 g/cm2, Z-score 0.6, T-score -0.9, normal. AP SPINE L1-L2 (excluding L3 and L4): The data of L1-L4 has been changed to exclude the L3 and L4 vertebral bodies, because degenerative sclerosis at these levels may cause overestimation of lumbar spine density. BMD 1.009 g/cm2, Z-score 0.1, T-score -1.3, osteopenia. IDENTIFIED RISK FACTORS: Menopause. HISTORY OF FRACTURE: None listed. MEDICATIONS: Vitamin D. MM/XR DEXA axial skeleton IMPRESSION: 1. DIAGNOSIS: Osteopenia based on the lowest T-score value of -1.9 in the femoral neck applying World Health Organization criteria. 2. 10-YEAR FRACTURE RISK PREDICTION, FRAX: Major osteoporotic fracture (clinical spine, forearm, hip or shoulder) 13.6%. Hip fracture 3.5%. 3. Treatment Recommendations: NOF guidelines recommend consideration for treatment in postmenopausal women and men age 50 and older presenting with the following: -A hip or vertebral (clinical or morphometric) fracture. -T-score less than or equal to -2.5 at the femoral neck or spine after appropriate evaluation to exclude secondary causes. -Low bone mass at the hip or spine and a 10-year fracture probability by FRAX of greater than or equal to 3% for hip fracture or greater than or equal to 20% for major osteoporotic fracture based on the [place] adapted WHO algorithm. 4. Other Recommendations: All treatment decisions require clinical judgment and consideration of individual patient factors, including patient preferences, comorbidities, previous drug use, risk factors not captured in the FRAX model (e.g. frailty, falls, vitamin D deficiency, increased bone turnover, interval significant decline in bone density) and possible under or overestimation of fracture risk by FRAX. Additional medical evaluation for secondary cause of low bone mineral density may be appropriate. FUTURE SCAN RECOMMENDATION: People with diagnosed cases of osteoporosis or at high risk for fracture should have regular bone mineral density tests. For patients eligible for Medicare, routine testing is allowed once every 2 years. The testing frequency can be increased to one year for patients who have rapidly progressing disease, those who are receiving or discontinuing medical therapy to restore bone mass, or have additional risk factors.
== END 2023-08-04 14:21 | disposition home or self-care (01) ==
LOC: HO.MAMMO 14:20
PROVIDERS: PCP Internal Medicine; Visit Provider Internal Medicine
DX: Z13.820 Encounter for screening for osteoporosis (principal); Z78.0 Asymptomatic menopausal state
CPT/HCPCS: 77080

== ENCOUNTER 2023-08-16 09:13 | Outpatient (AMB) | payer MEDICARE, MEDICAID, SELFPAY ==
--- NOTE | 2023-08-16 09:14 | MHC.PC.OV ---
Vital Signs 08/16/23 09:15 Height 5 ft 4 in Weight 163 lb BMI 28.0 BP 126/78 Blood Pressure Location Rt brachial Position Sitting Pulse 89 Pulse Source Pulse Oximeter Pulse Oximetry (%) 99 Oxygen Delivery Method Room Air Intake Visit Reasons: Follow up on rash Intake Note: Pt is here today for a follow up visit on rash on her face. Allergies No Known Allergies Allergy (Verified 07/18/23 11:23) Medication List - Last Reconciled 08/16/23 by Faith Elizondo MD apixaban (Eliquis) 5 mg PO BID clotrimazole 1% 1 appl topical BID digoxin (Digox) 125 mcg PO DAILY doxycycline hyclate 100 mg PO DAILY fluconazole 100 mg PO DAILY irbesartan 300 mg PO DAILY ketoconazole 2% 1 appl topical DAILY metoprolol succinate ER 75 mg (1.5 x 50 mg) PO BID pravastatin 40 mg PO DAILY sertraline 50 mg PO DAILY triamterene-hydrochlorothiazid 37.5-25 mg 1 tab PO DAILY Tobacco use date assessed: 07/18/23 Dental Screening Dental Screen Date: 08/16/23 Did you have a dental visit in the last 12 months?: Yes Did you have a dental problem in the last 6 months where you did not have access to dental care?: No Was dental information given to patient?: Patient has dentist HPI Follow up on rash HPI Details Patient presents for the follow-up on facial rash, improved on doxycycline. Patient stopped using Ponds facial cream. Hypertension is controlled on current medications PFSH Medical History Sinusitis Rash Annual physical exam A-fib Anxiety Osteoarthritis Endometrial ca Thyroid nodule Chronic insomnia Hyperlipidemia HTN (hypertension) Surgical History H/O colonoscopy S/P GUSTAVO-BSO No pertinent past surgical history Family History Father No problems noted. Mother No problems noted. Social History Housing: House Alcohol intake: never Patient Tobacco Use Status: Never used Tobacco e-Cigarette/Vaping Use: Never Used Current occupational status: retired Cognitive needs: No Hearing needs: No Vision needs: Yes Questionnaire Thrive Questionnaire Date Thrive assessed: 07/18/23 MADIE-7 AMB Questionnaire MADIE-7 Date MADIE - 7 assessed: 07/18/23 Source: Developed by Drs. Eddie Garcia, Elma Castaneda, Genaro Alvarado and colleagues, with an educational piter from [employer]. Review of Systems Const All systems reviewed & are unremarkable except as noted in HPI and below Reports no additional complaints Eyes Reports no additional complaints ENT Reports no additional complaints Card Reports no additional complaints Resp Reports no additional complaints GI Reports no additional complaints Physical exam (Primary Care) Vital Signs: Last Vital Signs Pulse 89 08/16/23 09:15 BP 126/78 08/16/23 09:15 Pulse Ox 99 08/16/23 09:15 Oxygen Delivery Method Room Air 08/16/23 09:15 BMI result Body Mass Index 28.0 Tobacco/Smoking Status: Tobacco use Status Tobacco use date assessed 07/18/23 08/16/23 09:22 Patient Tobacco Use Status Never used Tobacco 08/16/23 09:22 e-Cigarette/Vaping Use Never Used 08/16/23 09:22 Thrive Assessment: Date of Thrive Assessment Date Thrive assessed 07/18/23 08/16/23 09:22 Const General: no acute distress HENMT Head: Yes normal to inspection Face and sinus: Yes normal facial exam Mouth: Normal oral and palatal mucosa present Throat: Yes posterior oropharynx normal Eyes General: appearance normal, both eyes and all related structures Neck Neck: Yes supple Resp Effort & Inspection: normal respiratory effort Auscultation: clear to auscultation bilaterally Cardio Rhythm: regular rhythm Heart sounds: S1 normal heart sound present and S2 normal heart sound present Assessment and Plan Assessment & Plan (1) Facial cellulitis: Code(s): L03.211 - Cellulitis of face Plan: Complete course of doxycycline (2) HTN (hypertension): Code(s): I10 - Essential (primary) hypertension Plan: Continue current medications Medications: Refilled doxycycline hyclate 100 mg PO DAILY 4 tabs 0RF Discontinued doxycycline hyclate Discontinued Reason: Doctor's Order 100 mg PO DAILY 10 tabs 0RF fluconazole Discontinued Reason: Doctor's Order 100 mg PO DAILY 7 tabs 0RF Coding Level of Care Code Est Pt Level 3 (16136) Diagnoses Facial cellulitis L03.211 HTN (hypertension) I10
[2023-08-16 09:15] VITALS: BP 126/78; PULSE 89; O2SAT 99; BMI 28.0
== END 2023-08-16 09:58 | disposition home or self-care (01) ==
PROVIDERS: PCP Internal Medicine; Visit Provider Internal Medicine
DX: L03.211 Cellulitis of face (principal); I10 Essential (primary) hypertension
CPT/HCPCS: 99213

== ENCOUNTER 2023-10-13 08:02 | Outpatient (REF) | payer MEDICARE, MEDICAID, SELFPAY ==
[2023-10-13 08:17] LABS: MANUAL DIFF FLAG NO
[2023-10-13 08:54] LABS: Basophils Absolute Auto 0.1 X10*3/uL (0.0-0.2); Basophils Percent Auto 0.6 % (0-2); Eosinophils Absolute Auto 0.2 X10*3/uL (0.0-0.4); Eosinophils Percent Auto 2.2 % (0-4); Hematocrit 38.3 % (37.0-47.0); Hemoglobin 12.6 g/dl (12.0-16.0); Imm Gran Abs Auto 0.07 X10*3/uL (0.00-0.03); Imm Gran Pct Auto 0.7 % (0.0-0.4); Lymphocytes Absolute Auto 2.1 X10*3/uL (1.2-4.9); Lymphocytes Percent Auto 22.2 % (20-40); Mean Corpuscular HGB Conc 32.9 g/dl (31.0-35.0); Mean Corpuscular Hemoglobin 29.3 pg (27.0-33.0); Mean Corpuscular Volume 89.1 fL (80.0-98.0); Mean Platelet Volume 10.2 fL (9.4-12.3); Monocytes Absolute Auto 0.9 X10*3/uL (0.1-1.2); Monocytes Percent Auto 9.7 % (2-11); Neutrophils Absolute Auto 6.1 x10*3/uL (2.0-8.3); Neutrophils Percent Auto 64.6 % (45-73); Platelet Count 268 X10*3/uL (160-400); Red Cell Distribution Width 13.5 % (11.0-16.0); White Blood Count 9.5 X10*3/uL (4.8-10.8)
[2023-10-13 09:18] LABS: Alanine Aminotransferase 59 U/L (0-31); Albumin Level 4.1 g/dL (3.5-5.0); Alkaline Phosphatase 73 U/L (39-117); Anion Gap 14 (12-20); Aspartate Amino Transferase 52 U/L (5-31); Bilirubin Total 0.7 mg/dL (0.0-1.0); Blood Urea Nitrogen 18 mg/dL (9-16); Calcium 9.1 mg/dL (8.4-10.2); Carbon Dioxide 24 mmol/L (22-29); Chloride 104 mmol/L (96-108); Cholesterol 141 mg/dL (<200); Estimated Glomerular Filt Rate > 60; Glucose Fasting 122 mg/dL (60-99); HDL Cholesterol 34 mg/dL (>40); LDL Cholesterol Calculated 74 mg/dL (<100); Potassium 3.7 mmol/L (3.3-5.1); Sodium 138 mmol/L (135-145); Total Protein 7.9 g/dL (6.5-8.0); Triglycerides 168 mg/dL (<150)
[2023-10-13 09:20] LABS: Digoxin 0.6 ng/mL (0.8-2.0); Estimated Average Glucose 137 mg/dL; Hemoglobin A1C 149.6069 umol/L; Hemoglobin A1c % 6.4 % (<6.0)
== END 2023-10-13 08:03 | disposition home or self-care (01) ==
LOC: HO.LAB 08:02
PROVIDERS: Absent Provider Internal Medicine; PCP Internal Medicine; Visit Provider Nurse Practitioner Family
DX: I48.19 Other persistent atrial fibrillation (principal); I42.9 Cardiomyopathy, unspecified; I48.91 Unspecified atrial fibrillation
CPT/HCPCS: 36415; 80053; 80061; 80162; 82306; 83036; 85025

== ENCOUNTER 2023-10-17 08:13 | Outpatient (AMB) | payer MEDICARE, MEDICAID, SELFPAY ==
[2023-10-17 08:18] VITALS: BP 128/62; PULSE 70; BMI 27.8
--- NOTE | 2023-10-17 08:18 | MHC.OFFVIS ---
Vital Signs 10/17/23 08:18 Height 5 ft 4 in Weight 162 lb 4.163 oz BMI 27.8 BP 128/62 Blood Pressure Location Lt brachial Position Sitting Pulse 70 Pulse Source Monitor Intake Visit Reasons: 6 mth f/up Metal Handler Required: No Internal Corrosion Specialist: Internal Corrosion Specialist Present Accompanied by: Daughter Allergies No Known Allergies Allergy (Verified 10/17/23 08:21) Medication List - Last Reconciled 10/17/23 by Donna Dominguez RN NUR[facility] apixaban (Eliquis) 5 mg PO BID clotrimazole 1% 1 appl topical BID digoxin 125 mcg PO DAILY irbesartan 300 mg PO DAILY ketoconazole 2% 1 appl topical DAILY metoprolol succinate ER 75 mg (1.5 x 50 mg) PO BID pravastatin 40 mg PO DAILY sertraline 50 mg PO DAILY triamterene-hydrochlorothiazid 37.5-25 mg 1 tab PO DAILY HPI HPI 6 mth f/up: Details: Fox is a 78-year-old female past medical history of hypertension, hyperlipidemia, atrial fibrillation, mild cardiomyopathy who presents for follow-up. Today she reports that she has been feeling well overall. She does feel heart palpitations at times when doing something exertional, such as gardening. She denies chest discomfort at rest or with activity. No shortness of breath, lightheadedness, presyncope, syncope, PND, orthopnea or edema. Her physical activity is limited by right knee pain. She is hoping to undergo a total knee replacement at some point in the near future. They plan to set up a orthopedic consultation. No bleeding issues reported. Daughter is present. Daughter assisting with translation at their request, permit signed. [facility] Medical History Sinusitis Rash Annual physical exam A-fib Anxiety Osteoarthritis Endometrial ca Thyroid nodule Chronic insomnia Hyperlipidemia HTN (hypertension) Surgical History H/O colonoscopy S/P GUSTAVO-BSO No pertinent past surgical history Family History Father No problems noted. Mother No problems noted. Social History Housing: House Alcohol intake: never Patient Tobacco Use Status: Never used Tobacco e-Cigarette/Vaping Use: Never Used Current occupational status: retired Cognitive needs: No Hearing needs: No Vision needs: Yes Review of Systems Const All systems reviewed & are unremarkable except as noted in HPI and below ENT Denies dizziness Card Denies chest pain, Denies chest pain at rest, Denies chest pain with activity, Reports rapid heart rate, Denies pedal edema, Denies edema, Denies leg edema, Denies lightheadedness, Denies palpitations, Denies dyspnea, Denies dyspnea on exertion and Denies orthopnea Resp Denies cough, Denies dyspnea and Denies dyspnea on exertion GI Denies hematochezia and Denies change in stool character Musc Details: right knee pain. Denies abnormal gait, Reports limited range of motion, Denies muscle cramps, Denies muscle weakness, Denies numbness, Denies radiating pain into limb, Denies stiffness and Denies tingling Neuro Denies abnormal gait, Denies dizziness, Denies numbness and Denies tingling Endo Denies palpitations Physical Exam Vital Signs: BMI result Body Mass Index 27.8 Const General: cooperative, healthy appearing, comfortable and no acute distress Orientation/consciousness: patient oriented x3 Neck Neck: Yes normal visual inspection Resp Effort & Inspection: normal respiratory effort Auscultation: clear to auscultation bilaterally, no crackles, no rales, no rhonchi and no wheezes Cardio Jugular venous distension: no JVD Rate: regular rate Rhythm: regular rhythm Heart sounds: S1 normal heart sound present, S2 normal heart sound present, no murmurs and no rubs Neuro General: patient oriented x3 Extrem General: Yes normal to inspection and No no pedal edema Psych Appearance: grossly normal Mental Status: mental status grossly normal Speech and movement: Normal speech and movement present Office Procedures EKG Details: Today, read by me, atrial fibrillation, left axis deviation, nonspecific ST abnormality, rate 70, QTC 429 milliseconds. [id number], Complete Assessment & Plan Assessment & Plan (1) A-fib: Comment: with RVR , ECHO 05/20 reduced EF 49%, improved ejection fraction to 60% 03/21 Code(s): I48.91 - Unspecified atrial fibrillation Category: Medical Qualifiers: Atrial fibrillation type: longstanding persistent Qualified Code(s): I48.11 - Longstanding persistent atrial fibrillation Plan: Persistent atrial fibrillation, treated with heart rate control. Currently on metoprolol and digoxin. An echocardiogram was done 03/29/2023 showing EF 55-60%, no valve abnormalities. Previously had reduced EF, Improvement in EF likely reflects better rate control with AFib. Holter monitor done 07/25/2023 for 3 days shows atrial fibrillation with average heart rate 79, no pauses greater than 3 seconds, rare PVCs. Digoxin level 0.6, creatinine 0.82 done 10/13/2023. Pulse is irregularly irregular on examination today, rate is normal range. She will feel occasional heart palpitations. She is on Eliquis for anticoagulation. No bleeding issues reported. Continue current med management. (2) Cardiomyopathy: Comment: Echo 06/21 EF 49%, global hypokinesis, nl valves, repeat Echo 03/21 EF 60%, nl valves Code(s): I42.9 - Cardiomyopathy, unspecified Category: Medical Plan: EF previously mildly reduced. Thought to be related to AFib with uncontrolled rates. Now on better rate control and EF has normalized. Patient did talk about possible total knee replacement in the future. If so then plan to order a pharmacological nuclear stress test for further evaluation. (3) HTN (hypertension): Code(s): I10 - Essential (primary) hypertension Category: Medical Plan: Well controlled at present. No med changes made Plan Time spent on chart review, documentation, interview and assessment Coding Level of Care Code Est Pt Level 3 (44544) Diagnoses Longstanding persistent atrial fibrillation I48.11 Atrial fibrillation type: longstanding persistent Cardiomyopathy I42.9 HTN (hypertension) I10 CPT Codes EKG - CPT: [id number], Complete ([id number]) Time Spent (min) 24
== END 2023-10-17 08:59 | disposition home or self-care (01) ==
PROVIDERS: PCP Internal Medicine; Visit Provider Nurse Practitioner Family
DX: I48.11 Longstanding persistent atrial fibrillation (principal); I42.9 Cardiomyopathy, unspecified; I10 Essential (primary) hypertension
CPT/HCPCS: 93010; 99213

== ENCOUNTER → 2023-10-17 08:13 | Outpatient (BNVA) | payer MEDICARE, MEDICAID, SELFPAY | PROVIDERS: PCP Internal Medicine; Visit Provider Nurse Practitioner Family | DX: I48.11 Longstanding persistent atrial fibrillation (principal); I42.9 Cardiomyopathy, unspecified; I10 Essential (primary) hypertension; Z79.01 Long term (current) use of anticoagulants | CPT/HCPCS: 93005; 99212 ==

== ENCOUNTER 2023-11-24 07:41 | Outpatient (AMB) | payer MEDICARE, MEDICAID, SELFPAY ==
[2023-11-24 07:43] VITALS: BP 100/60; PULSE 81; O2SAT 97; BMI 27.5
--- NOTE | 2023-11-24 07:43 | MHC.PC.OV ---
Vital Signs 11/24/23 07:43 Height 5 ft 4 in Weight 160 lb BMI 27.5 BP 100/60 Blood Pressure Location Lt brachial Position Sitting Pulse 81 Pulse Source Pulse Oximeter Pulse Oximetry (%) 97 Oxygen Delivery Method Room Air Intake Visit Reasons: Follow up Intake Note: Pt is here today for her f/u Allergies No Known Allergies Allergy (Verified 11/24/23 07:44) Medication List - Last Reconciled 11/24/23 by Faith Elizondo MD apixaban (Eliquis) 5 mg PO BID clotrimazole 1% 1 appl topical BID digoxin 125 mcg PO DAILY irbesartan 300 mg PO DAILY ketoconazole 2% 1 appl topical DAILY metoprolol succinate ER 75 mg (1.5 x 50 mg) PO BID pravastatin 40 mg PO DAILY sertraline 50 mg PO DAILY triamterene-hydrochlorothiazid 37.5-25 mg 1 tab PO DAILY Tobacco use date assessed: 11/24/23 Fall risk assessment: No Falls in past year Last assessed Fall Risk: 11/24/23 Dental Screening Dental Screen Date: 11/24/23 Did you have a dental visit in the last 12 months?: No Was dental information given to patient?: Patient declined HPI Follow up HPI Details Pt presents for HTN, A fib, hyperlipid, stable on meds. [facility] Medical History Sinusitis Rash Annual physical exam A-fib Anxiety Osteoarthritis Endometrial ca Thyroid nodule Chronic insomnia Hyperlipidemia HTN (hypertension) Surgical History H/O colonoscopy S/P GUSTAVO-BSO No pertinent past surgical history Family History Father No problems noted. Mother No problems noted. Social History Housing: House Alcohol intake: never Patient Tobacco Use Status: Never used Tobacco e-Cigarette/Vaping Use: Never Used Current occupational status: retired Cognitive needs: No Hearing needs: No Vision needs: Yes Questionnaire Thrive Questionnaire Date Thrive assessed: 07/18/23 MADIE-7 AMB Questionnaire MADIE-7 Date MADIE - 7 assessed: 07/18/23 Source: Developed by Drs. Eddie Garcia, Elma Castaneda, Genaro Alvarado and colleagues, with an educational piter from [employer]. Review of Systems Const All systems reviewed & are unremarkable except as noted in HPI and below Reports no additional complaints Eyes Reports no additional complaints ENT Reports no additional complaints Card Reports no additional complaints Resp Reports no additional complaints GI Reports no additional complaints Reports no additional complaints Physical exam (Primary Care) Vital Signs: Last Vital Signs Pulse 81 11/24/23 07:43 BP 100/60 11/24/23 07:43 Pulse Ox 97 11/24/23 07:43 Oxygen Delivery Method Room Air 11/24/23 07:43 BMI result Body Mass Index 27.5 Tobacco/Smoking Status: Tobacco use Status Tobacco use date assessed 11/24/23 11/24/23 07:48 Patient Tobacco Use Status Never used Tobacco 11/24/23 07:48 e-Cigarette/Vaping Use Never Used 11/24/23 07:48 Thrive Assessment: Date of Thrive Assessment Date Thrive assessed 07/18/23 11/24/23 07:48 Const General: no acute distress HENMT Head: Yes normal to inspection Face and sinus: Yes normal facial exam Eyes General: appearance normal, both eyes and all related structures Neck Neck: Yes supple Resp Effort & Inspection: normal respiratory effort Auscultation: clear to auscultation bilaterally Cardio Rhythm: abnormal rhythm irregularly irregular Heart sounds: S1 normal heart sound present and S2 normal heart sound present GI Inspection: Yes normal to inspection Palpation (GI): Soft to palpation Percussion: Yes normal to percussion Auscultation: normal bowel sounds Assessment and Plan Assessment & Plan (1) HTN (hypertension): Code(s): I10 - Essential (primary) hypertension Plan: Continue current medications (2) Hyperlipidemia: Code(s): E78.5 - Hyperlipidemia, unspecified Plan: Continue statin (3) A-fib: Comment: with RVR , ECHO 05/20 reduced EF 49%, improved ejection fraction to 60% 03/21 Code(s): I48.91 - Unspecified atrial fibrillation Qualifiers: Atrial fibrillation type: longstanding persistent Qualified Code(s): I48.11 - Longstanding persistent atrial fibrillation Plan: Rate controlled on digoxin and metoprolol and anticoagulated on Eliquis (4) Cardiomyopathy: Comment: Echo 06/21 EF 49%, global hypokinesis, nl valves, repeat Echo 03/21 EF 60%, nl valves Code(s): I42.9 - Cardiomyopathy, unspecified Plan: Follow-up with cardiology Orders: Orders Hemoglobin A1c 3 Months E78.5 - Hyperlipidemia, unspecified, I10 - Essential (primary) hypertension, I42.9 - Cardiomyopathy, unspecified, I48.11 - Longstanding persistent atrial fibrillation Lipid Panel 3 Months E78.5 - Hyperlipidemia, unspecified, I10 - Essential (primary) hypertension, I42.9 - Cardiomyopathy, unspecified, I48.11 - Longstanding persistent atrial fibrillation Microalbumin, Random (w Creat) 3 Months E78.5 - Hyperlipidemia, unspecified, I10 - Essential (primary) hypertension, I42.9 - Cardiomyopathy, unspecified, I48.11 - Longstanding persistent atrial fibrillation Comprehensive [place]. Panel Fast 3 Months E78.5 - Hyperlipidemia, unspecified, I10 - Essential (primary) hypertension, I42.9 - Cardiomyopathy, unspecified, I48.11 - Longstanding persistent atrial fibrillation Complete Blood Count Auto Diff 3 Months E78.5 - Hyperlipidemia, unspecified, I10 - Essential (primary) hypertension, I42.9 - Cardiomyopathy, unspecified, I48.11 - Longstanding persistent atrial fibrillation Coding Level of Care Code Est Pt Level 4 (29135) Diagnoses HTN (hypertension) I10 Hyperlipidemia E78.5 Longstanding persistent atrial fibrillation I48.11 Atrial fibrillation type: longstanding persistent Cardiomyopathy I42.9
== END 2023-11-24 08:49 | disposition home or self-care (01) ==
LOC: HO.HMGC 07:41
PROVIDERS: PCP Internal Medicine; Visit Provider Internal Medicine
DX: I10 Essential (primary) hypertension (principal); E78.5 Hyperlipidemia, unspecified; I48.11 Longstanding persistent atrial fibrillation; I42.9 Cardiomyopathy, unspecified
CPT/HCPCS: 99214

== ENCOUNTER 2024-02-21 09:14 | Outpatient (AMB) | payer MEDICARE, MEDICAID, SELFPAY ==
[2024-02-21 09:15] VITALS: BP 122/76; PULSE 84; O2SAT 98; BMI 27.5
--- NOTE | 2024-02-21 09:15 | A.OFFPC_ITS ---
Vital Signs 02/21/24 09:15 Height 5 ft 4 in Weight 160 lb BMI 27.5 BP 122/76 Blood Pressure Location Rt brachial Position Sitting Pulse 84 Pulse Source Pulse Oximeter Pulse Oximetry (%) 98 Oxygen Delivery Method Room Air Intake Visit Reasons: Follow up Intake Note: Pt is here today for a follow up visit. Allergies No Known Allergies Allergy (Verified 02/21/24 09:21) Medication List - Last Reconciled 02/21/24 by Faith Elizondo MD apixaban (Eliquis) 5 mg PO BID clotrimazole 1% 1 appl topical BID digoxin 125 mcg PO DAILY doxycycline hyclate 100 mg PO BID irbesartan 300 mg PO DAILY ketoconazole 2% 1 appl topical DAILY metoprolol succinate ER 75 mg (1.5 x 50 mg) PO BID pravastatin 40 mg PO DAILY sertraline 50 mg PO DAILY triamterene-hydrochlorothiazid 37.5-25 mg 1 tab PO DAILY Tobacco use date assessed: 02/21/24 Fall risk assessment: 1 Fall in past year Last assessed Fall Risk: 02/21/24 Dental Screening Dental Screen Date: 11/24/23 HPI Follow up HPI Details Pt presents for f/u HTN, A FIB, hyperlipidemia stable on current medications. [facility] Medical History (Updated 02/21/24 @ 10:11 by Faith Elizondo MD) Sinusitis Rash Annual physical exam Anxiety Osteoarthritis Endometrial ca Thyroid nodule Chronic insomnia Hyperlipidemia HTN (hypertension) Surgical History H/O colonoscopy S/P GUSTAVO-BSO No pertinent past surgical history Family History Father No problems noted. Mother No problems noted. Social History Housing: House Alcohol intake: never Patient Tobacco Use Status: Never used Tobacco e-Cigarette/Vaping Use: Never Used service: No Current occupational status: retired Cognitive needs: No Hearing needs: No Vision needs: Yes Questionnaire Thrive Questionnaire Date Thrive assessed: 07/18/23 MADIE-7 AMB Questionnaire MADIE-7 Date MADIE - 7 assessed: 07/18/23 Source: Developed by Drs. Eddie Garcia, ElmaGenaro Restrepo and colleagues, with an educational piter from [employer]. Review of Systems Const All systems reviewed & are unremarkable except as noted in HPI and below Eyes Reports no additional complaints ENT Reports no additional complaints Card Reports no additional complaints Resp Reports no additional complaints GI Reports no additional complaints Reports no additional complaints Physical exam (Primary Care) Vital Signs: Last Vital Signs Pulse 84 02/21/24 09:15 BP 122/76 02/21/24 09:15 Pulse Ox 98 02/21/24 09:15 Oxygen Delivery Method Room Air 02/21/24 09:15 BMI result Body Mass Index 27.5 Tobacco/Smoking Status: Tobacco use Status Tobacco use date assessed 02/21/24 02/21/24 09:23 Patient Tobacco Use Status Never used Tobacco 02/21/24 09:17 e-Cigarette/Vaping Use Never Used 02/21/24 09:17 Thrive Assessment: Date of Thrive Assessment Date Thrive assessed 07/18/23 02/21/24 09:17 Const General: no acute distress HENMT Face and sinus: Yes normal facial exam Eyes General: appearance normal, both eyes and all related structures Resp Effort & Inspection: normal respiratory effort Auscultation: clear to auscultation bilaterally Cardio Rhythm: abnormal rhythm irregularly irregular Heart sounds: S1 normal heart sound present and S2 normal heart sound present GI Inspection: Yes normal to inspection Palpation (GI): Soft to palpation Percussion: Yes normal to percussion Assessment and Plan Assessment & Plan (1) HTN (hypertension): Code(s): I10 - Essential (primary) hypertension Plan: Continue current medications (2) Hyperlipidemia: Code(s): E78.5 - Hyperlipidemia, unspecified Plan: Continue statin (3) Persistent atrial fibrillation: Code(s): I48.19 - Other persistent atrial fibrillation Plan: Rate controlled on metoprolol and anticoagulated on Eliquis (4) Cardiomyopathy: Comment: Echo 06/21 EF 49%, global hypokinesis, nl valves, repeat Echo 03/21 EF 60%, nl valves Code(s): I42.9 - Cardiomyopathy, unspecified Plan: Continue current medications Orders: Orders Hemoglobin A1c 6 Months E78.5 - Hyperlipidemia, unspecified, I10 - Essential (primary) hypertension, I42.9 - Cardiomyopathy, unspecified, I48.19 - Other persistent atrial fibrillation, R73.9 - Hyperglycemia, unspecified Microalbumin, Random (w Creat) 6 Months E78.5 - Hyperlipidemia, unspecified, I10 - Essential (primary) hypertension, I42.9 - Cardiomyopathy, unspecified, I48.19 - Other persistent atrial fibrillation, R73.9 - Hyperglycemia, unspecified Comprehensive [place]. Panel Fast 6 Months E78.5 - Hyperlipidemia, unspecified, I10 - Essential (primary) hypertension, I42.9 - Cardiomyopathy, unspecified, I48.19 - Other persistent atrial fibrillation, R73.9 - Hyperglycemia, unspecified Lipid Panel 6 Months E78.5 - Hyperlipidemia, unspecified, I10 - Essential (primary) hypertension, I42.9 - Cardiomyopathy, unspecified, I48.19 - Other persistent atrial fibrillation, R73.9 - Hyperglycemia, unspecified Medications: Discontinued doxycycline hyclate Discontinued Reason: Doctor's Order 100 mg PO BID 20 tabs 0RF Coding Level of Care Code Est Pt Level 4 (59078) Diagnoses HTN (hypertension) I10 Hyperlipidemia E78.5 Persistent atrial fibrillation I48.19 Cardiomyopathy I42.9
== END 2024-02-21 10:17 | disposition home or self-care (01) ==
PROVIDERS: PCP Internal Medicine; Visit Provider Internal Medicine
DX: I10 Essential (primary) hypertension (principal); E78.5 Hyperlipidemia, unspecified; I48.19 Other persistent atrial fibrillation; I42.9 Cardiomyopathy, unspecified

== ENCOUNTER → 2024-02-21 09:14 | Outpatient (BNVA) | payer MEDICARE, MEDICAID, SELFPAY | PROVIDERS: PCP Internal Medicine; Visit Provider Internal Medicine | DX: I10 Essential (primary) hypertension (principal); E78.5 Hyperlipidemia, unspecified; I48.19 Other persistent atrial fibrillation; I42.9 Cardiomyopathy, unspecified | CPT/HCPCS: 99212 ==

== ENCOUNTER 2024-02-25 07:57 | Outpatient (REF) | payer MEDICARE, MEDICAID, SELFPAY ==
[2024-02-25 11:19] LABS: MANUAL DIFF FLAG NO
[2024-02-25 11:32] LABS: Basophils Absolute Auto 0.1 X10*3/uL (0.0-0.2); Basophils Percent Auto 0.7 % (0-2); Eosinophils Absolute Auto 0.2 X10*3/uL (0.0-0.4); Eosinophils Percent Auto 2.6 % (0-4); Hematocrit 38.6 % (37.0-47.0); Hemoglobin 12.7 g/dl (12.0-16.0); Imm Gran Abs Auto 0.07 X10*3/uL (0.00-0.03); Imm Gran Pct Auto 0.8 % (0.0-0.4); Lymphocytes Absolute Auto 2.2 X10*3/uL (1.2-4.9); Lymphocytes Percent Auto 25.1 % (20-40); Mean Corpuscular HGB Conc 32.9 g/dl (31.0-35.0); Mean Corpuscular Hemoglobin 29.7 pg (27.0-33.0); Mean Corpuscular Volume 90.4 fL (80.0-98.0); Mean Platelet Volume 10.8 fL (9.4-12.3); Monocytes Absolute Auto 0.8 X10*3/uL (0.1-1.2); Monocytes Percent Auto 9.8 % (2-11); Neutrophils Absolute Auto 5.3 x10*3/uL (2.0-8.3); Platelet Count 253 X10*3/uL (160-400); Red Blood Count 4.27 X10*6/uL (4.20-5.50); Red Cell Distribution Width 13.3 % (11.0-16.0); White Blood Count 8.6 X10*3/uL (4.8-10.8)
[2024-02-25 11:37] LABS: Estimated Average Glucose 128 mg/dL; Hemoglobin A1c % 6.1 % (<6.0); Total Hemoglobin (HGBA1C) 3191.6241 umol/L
[2024-02-25 11:43] LABS: Alanine Aminotransferase 61 U/L (0-31); Albumin Level 3.9 g/dL (3.5-5.0); Alkaline Phosphatase 67 U/L (39-117); Anion Gap 12 (12-20); Aspartate Amino Transferase 60 U/L (5-31); Bilirubin Total 0.7 mg/dL (0.0-1.0); Blood Urea Nitrogen 13 mg/dL (9-16); Calcium 9.3 mg/dL (8.4-10.2); Carbon Dioxide 25 mmol/L (22-29); Chloride 104 mmol/L (96-108); Estimated Glomerular Filt Rate > 60; Glucose Fasting 118 mg/dL (60-99); Sodium 137 mmol/L (135-145); Total Protein 7.6 g/dL (6.5-8.0)
[2024-02-25 12:54] LABS: Creatinine Urine 188.17 mg/dL; Microalbum/Creatinine Ratio Ur 5.8 ug/mg cr (<30)
== END 2024-02-25 07:58 | disposition home or self-care (01) ==
LOC: HO.HMGCLDS 07:57
PROVIDERS: PCP Internal Medicine; Visit Provider Internal Medicine
DX: I10 Essential (primary) hypertension (principal); E78.5 Hyperlipidemia, unspecified; I48.11 Longstanding persistent atrial fibrillation; I42.9 Cardiomyopathy, unspecified; Z13.1 Encounter for screening for diabetes mellitus
CPT/HCPCS: 36415; 80053; 82043; 82570; 83036; 85025

== ENCOUNTER 2024-03-20 08:45 | Outpatient (REF) | payer MEDICARE, MEDICAID, SELFPAY ==
--- NOTE | ~2024-03-20 | US_ITS ---
EXAMINATION: US ABDOMEN COMPLETE CLINICAL INFORMATION: Other specified abnormal findings of blood chemistry. COMPARISON: CT abdomen and pelvis 01/26/2018. TECHNIQUE: Real-time imaging of the abdominal viscera. Limited visualization due to bowel gas. FINDINGS: PANCREAS: Limited visualization of pancreatic tail and head. Imaged portion of pancreatic body is unremarkable. ABDOMINAL AORTA: Mild atherosclerosis. INFERIOR VENA CAVA: Visualized portions are normal. LIVER: Increased hepatic parenchymal heterogeneity and echogenicity could be associated with hepatocellular disease/hepatic steatosis and substantially limits visualization. Correlation with liver function tests and clinical exam recommended to determine further management. Moderate hepatomegaly, 15.9 cm. Multiple hepatic cysts, largest left hepatic lobe 1.9 cm. GALLBLADDER: No gallbladder wall thickening. Echogenic material within the gallbladder measuring 6 mm, possibly representing sludge/sludge ball versus, less likely, polyp or gallstone. COMMON BILE DUCT: Normal in caliber measuring 0.57 cm in diameter. RIGHT KIDNEY: Mild right pelviectasis versus extrarenal pelvis. No obstructing renal calculi. CT scan of 01/26/2018 demonstrated extrarenal pelvis. Limited visualization. The kidney measures 11.2 cm in maximum dimension. LEFT KIDNEY: No hydronephrosis. No renal calculi. Limited visualization. The kidney measures 10.0 cm in maximum dimension. SPLEEN: Echogenic foci, possibly representing calcified splenic vessels. Limited visualization. The spleen measures 10.1 cm in maximum dimension. FREE FLUID: None. US/US abdomen complete IMPRESSION: 1. Increased hepatic parenchymal heterogeneity and echogenicity could be associated with hepatocellular disease/hepatic steatosis and substantially limits visualization. Correlation with liver function tests and clinical exam recommended to determine further management. Moderate hepatomegaly, 15.9 cm. 2. Multiple hepatic cysts, largest left hepatic lobe 1.9 cm. 3. Echogenic material within the gallbladder measuring 6 mm, possibly representing sludge/sludge ball versus, less likely, polyp or gallstone. 4. Mild right pelviectasis versus extrarenal pelvis. No obstructing renal calculi. CT scan of 01/26/2018 demonstrated extrarenal pelvis. 5. Echogenic foci, possibly representing calcified splenic vessels. Limited visualization. Electronically signed by: Leni Tiwari MD 04/15/2024 08:48 PM EST
== END 2024-03-20 08:46 | disposition home or self-care (01) ==
LOC: HO.HMGCX 08:45
PROVIDERS: PCP Internal Medicine; Visit Provider Internal Medicine
DX: R79.89 Other specified abnormal findings of blood chemistry (principal)
CPT/HCPCS: 76700

== ENCOUNTER 2024-04-30 14:28 | Outpatient (AMB) | payer MEDICARE, MEDICAID, SELFPAY ==
[2024-04-30 14:30] VITALS: BP 124/72; PULSE 66; BMI 27.1
--- NOTE | 2024-04-30 14:30 | MHC.OFFVIS ---
Vital Signs 04/30/24 14:30 Height 5 ft 4 in Weight 157 lb 13.616 oz BMI 27.1 BP 124/72 Blood Pressure Location Lt brachial Position Sitting Pulse 66 Pulse Source Monitor Intake Visit Reasons: f/u Supervisor Pumping Required: No Supervisor Pumping Services: Supervisor Pumping Present Supervisor Pumping Name: daughter Ultimate Hoops Trainer: Ultimate Hoops Trainer Present Allergies No Known Allergies Allergy (Verified 04/30/24 14:33) Medication List - Last Reconciled 04/30/24 by Donna Dominguez POWERHOUSE ENGINEER-C apixaban (Eliquis) 5 mg PO BID clotrimazole 1% 1 appl topical BID digoxin 125 mcg PO DAILY irbesartan 300 mg PO DAILY ketoconazole 2% 1 appl topical DAILY metoprolol succinate ER 75 mg (1.5 x 50 mg) PO BID pravastatin 40 mg PO DAILY sertraline 50 mg PO DAILY triamcinolone acetonide 0.1% 1 appl topical DAILY triamterene-hydrochlorothiazid 37.5-25 mg 1 tab PO DAILY HPI HPI f/u: Details: Fox is a 78-year-old female past medical history of hypertension, hyperlipidemia, atrial fibrillation, mild cardiomyopathy who presents for follow-up. Today she reports that she has been doing well since her last visit September 2023. She has not had any chest discomfort at rest or with activity. She will notice her heart beating irregular if she lays on her left side. She is not noticing heart palpitations with day-to-day activities. No shortness of breath, PND, orthopnea or edema. She has notice some lightheadedness if she tips her head backwards and looks up such as when hanging clothes on her clothes line. No presyncope, syncope, falls. She does only light physical activity. She is limited by right knee pain. She is hoping to undergo a total knee replacement at some point in the near future. They still need to set up an orthopedic consultation for this. She is hoping to have it this coming spring. No bleeding issues reported. Daughter is present and assisting with translation at their request. [facility] Medical History Sinusitis Rash Annual physical exam Anxiety Osteoarthritis Endometrial ca Thyroid nodule Chronic insomnia Hyperlipidemia HTN (hypertension) Surgical History H/O colonoscopy S/P GUSTAVO-BSO No pertinent past surgical history Family History Father No problems noted. Mother No problems noted. Social History Housing: House Alcohol intake: never Patient Tobacco Use Status: Never used Tobacco e-Cigarette/Vaping Use: Never Used service: No Current occupational status: retired Cognitive needs: No Hearing needs: No Vision needs: Yes Review of Systems Const All systems reviewed & are unremarkable except as noted in HPI and below ENT Reports dizziness (if she bends head back and looks up) Card Denies chest pain, Denies chest pain at rest, Denies chest pain with activity, Denies rapid heart rate, Denies pedal edema, Denies edema, Denies leg edema, Denies lightheadedness, Denies palpitations, Denies dyspnea, Denies dyspnea on exertion and Denies orthopnea Resp Denies cough, Denies dyspnea and Denies dyspnea on exertion GI Denies hematochezia and Denies change in stool character Musc Details: right knee pain Denies abnormal gait, Reports limited range of motion, Denies muscle cramps, Denies muscle weakness, Denies numbness, Denies radiating pain into limb, Denies stiffness and Denies tingling Neuro Denies abnormal gait, Reports dizziness (if she bends head back and looks up), Denies numbness and Denies tingling Endo Denies palpitations Physical Exam Const General: cooperative, healthy appearing, comfortable and no acute distress Orientation/consciousness: patient oriented x3 Neck Neck: Yes normal visual inspection Resp Effort & Inspection: normal respiratory effort Auscultation: clear to auscultation bilaterally, no crackles, no rales, no rhonchi and no wheezes Cardio Jugular venous distension: no JVD Rate: regular rate Rhythm: regular rhythm Heart sounds: S1 normal heart sound present, S2 normal heart sound present, no murmurs and no rubs Neuro General: patient oriented x3 Extrem General: Yes normal to inspection and No no pedal edema Psych Appearance: grossly normal Mental Status: mental status grossly normal Speech and movement: Normal speech and movement present Office Procedures EKG Details: Today, read by me, atrial fibrillation, left anterior fascicular block, nonspecific ST and T-wave abnormality, rate 66, QTC 419 milliseconds [id number], Complete Assessment & Plan Assessment & Plan (1) A-fib: Comment: with RVR , ECHO 05/20 reduced EF 49%, improved ejection fraction to 60% 03/21 Code(s): I48.91 - Unspecified atrial fibrillation Category: Medical Qualifiers: Atrial fibrillation type: longstanding persistent Qualified Code(s): I48.11 - Longstanding persistent atrial fibrillation Plan: Persistent atrial fibrillation, treated with heart rate control. Currently on metoprolol and digoxin. An echocardiogram was done 03/29/2023 showing EF 55-60%, no valve abnormalities. Previously had reduced EF, Improvement in EF likely reflects better rate control with AFib. Holter monitor done 07/25/2023 for 3 days shows atrial fibrillation with average heart rate 79, no pauses greater than 3 seconds, rare PVCs. Labs done 10/13/2023 showed Digoxin level 0.6, creatinine 0.82. Pulse is irregularly irregular on examination today, rate is normal range. She is on Eliquis 5 mg b.i.d. for anticoagulation. No bleeding issues reported. Continue current med management. Will check CMP and digoxin level today. (2) Cardiomyopathy: Comment: Echo 06/21 EF 49%, global hypokinesis, nl valves, repeat Echo 03/21 EF 60%, nl valves Code(s): I42.9 - Cardiomyopathy, unspecified Category: Medical Plan: EF previously mildly reduced. Thought to be related to AFib with uncontrolled rates. Now on better rate control and EF has normalized. Patient is still talking about a possible total knee replacement, this coming spring. With her prior reduced EF, chronic AFib, decreased activity tolerance will order a pharmacological nuclear stress test to evaluate for ischemia. Plan to call her with the results. (3) HTN (hypertension): Code(s): I10 - Essential (primary) hypertension Category: Medical Plan: Well controlled at present. No med changes made (4) Knee pain: Code(s): M25.569 - Pain in unspecified knee Category: Medical Plan: Reports of right knee pain which she relates to arthritis. She is going to seek consultation and hopes to have a total knee replacement in the near future. She has previously had injections and tell me they do not work well for her. Cardiology follow-up 3 months, sooner if needed. Plan will be to address preop clearance at that time if surgery date/ plan is known. Plan Time spent on chart review, documentation, interview and assessment Orders: Orders Digoxin Today I48.19 - Other persistent atrial fibrillation CA lexiscan stress w torsten 2 Months I42.9 - Cardiomyopathy, unspecified, I48.19 - Other persistent atrial fibrillation NM cardiolite stress test 2 Months I42.9 - Cardiomyopathy, unspecified, I48.19 - Other persistent atrial fibrillation Comprehensive Met. Panel Today I42.9 - Cardiomyopathy, unspecified Coding Level of Care Code Est Pt Level 4 (02898) Complex EM visit Add On G2211 Diagnoses Longstanding persistent atrial fibrillation I48.11 Atrial fibrillation type: longstanding persistent Cardiomyopathy I42.9 HTN (hypertension) I10 Knee pain M25.569 CPT Codes EKG - CPT: 31745-[id number], Complete ([id number]) Time Spent (min) 30
== END 2024-04-30 15:01 | disposition home or self-care (01) ==
PROVIDERS: PCP Internal Medicine; Visit Provider Nurse Practitioner Family
DX: I48.11 Longstanding persistent atrial fibrillation (principal); I42.9 Cardiomyopathy, unspecified; I10 Essential (primary) hypertension; M25.569 Pain in unspecified knee
CPT/HCPCS: 93010; 99214; G2211

== ENCOUNTER 2024-04-30 14:28 | Outpatient (REF) | payer MEDICARE, MEDICAID, SELFPAY ==
[2024-04-30 16:58] LABS: Digoxin 0.7 ng/mL (0.8-2.0)
[2024-04-30 17:25] LABS: Alanine Aminotransferase 86 U/L (0-31); Albumin Level 4.2 g/dL (3.5-5.0); Alkaline Phosphatase 80 U/L (39-117); Anion Gap 11 (12-20); Aspartate Amino Transferase 85 U/L (5-31); Bilirubin Total 0.8 mg/dL (0.0-1.0); Blood Urea Nitrogen 13 mg/dL (9-16); Carbon Dioxide 27 mmol/L (22-29); Chloride 103 mmol/L (96-108); Estimated Glomerular Filt Rate > 60; Glucose Random 100 mg/dL (60-115); Potassium 3.9 mmol/L (3.3-5.1); Sodium 137 mmol/L (135-145); Total Protein 8.4 g/dL (6.5-8.0)
== END 2024-04-30 14:29 | disposition home or self-care (01) ==
LOC: HO.LAB 14:28
PROVIDERS: PCP Internal Medicine; Visit Provider Nurse Practitioner Family
DX: I42.9 Cardiomyopathy, unspecified (principal); I48.11 Longstanding persistent atrial fibrillation; I10 Essential (primary) hypertension; M25.561 Pain in right knee
CPT/HCPCS: 36415; 80053; 80162; 93005; 99212

== ENCOUNTER 2024-08-09 15:39 | Outpatient (AMB) | payer MEDICARE, MEDICAID, SELFPAY ==
[2024-08-09 15:43] VITALS: BP 110/64; PULSE 69; BMI 27.0
--- NOTE | 2024-08-09 15:43 | A.OFFVIS_ITS ---
Vital Signs 08/09/24 15:43 Height 5 ft 4 in Weight 157 lb 6.561 oz BMI 27.0 BP 110/64 Blood Pressure Location Lt brachial Position Sitting Pulse 69 Pulse Source Monitor Intake Visit Reasons: 3 mth f/up / Pre-op [facility] Sandwich And Drink Cart Operator Required: No Drilling Plant Operator: Drilling Plant Operator Present Allergies No Known Allergies Allergy (Verified 08/09/24 15:46) Medication List - Last Reconciled 08/09/24 by Donna Dominguez NP-C apixaban (Eliquis) 5 mg PO BID clotrimazole 1% 1 appl topical BID digoxin 125 mcg PO DAILY irbesartan 300 mg PO DAILY ketoconazole 2% 1 appl topical DAILY metoprolol succinate ER 75 mg (1.5 x 50 mg) PO BID pravastatin 40 mg PO DAILY sertraline 50 mg PO DAILY triamcinolone acetonide 0.1% 1 appl topical DAILY triamterene-hydrochlorothiazid 37.5-25 mg 1 tab PO DAILY HPI HPI 3 mth f/up / Pre-op [facility]: Details: Fox is a 79-year-old female past medical history of hypertension, hyperlipidemia, atrial fibrillation, mild cardiomyopathy who presents for follow-up and preop cardiovascular clearance for knee surgery. Today she reports that she is scheduled to undergo a total knee replacement on 09/18/2024. She was found that her right knee is limiting her ability to engage in physical activity. Otherwise she has no concerning symptoms. No chest discomfort at rest or with activity. No concerning heart palpitations, no presyncope, syncope. No shortness of breath, PND, orthopnea or edema. She has notice some lightheadedness if she tips her head backwards and looks up such as when hanging clothes on her clothes line. No bleeding issues reported. Daughter is present and assisting with Bengali translation at their request. [facility] Medical History Sinusitis Rash Annual physical exam Anxiety Osteoarthritis Endometrial ca Thyroid nodule Chronic insomnia Hyperlipidemia HTN (hypertension) Surgical History H/O colonoscopy S/P GUSTAVO-BSO No pertinent past surgical history Family History Father No problems noted. Mother No problems noted. Social History Housing: House Alcohol intake: never Patient Tobacco Use Status: Never used Tobacco e-Cigarette/Vaping Use: Never Used service: No Current occupational status: retired Cognitive needs: No Hearing needs: No Vision needs: Yes Review of Systems Const All systems reviewed & are unremarkable except as noted in HPI and below ENT Denies dizziness Card Denies chest pain, Denies chest pain at rest, Denies chest pain with activity, Denies rapid heart rate, Denies pedal edema, Denies edema, Denies leg edema, Denies lightheadedness, Denies palpitations, Denies dyspnea, Denies dyspnea on exertion and Denies orthopnea Resp Denies cough, Denies dyspnea and Denies dyspnea on exertion GI Denies hematochezia and Denies change in stool character Musc Details: right knee pain Reports abnormal gait, Reports limited range of motion, Denies muscle cramps, Denies muscle weakness, Denies numbness, Denies radiating pain into limb, Denies stiffness and Denies tingling Neuro Reports abnormal gait, Denies dizziness, Denies numbness and Denies tingling Endo Denies palpitations Physical Exam Vital Signs: Last Vital Signs Pulse 69 08/09/24 15:43 BP 110/64 08/09/24 15:43 BMI result Body Mass Index 27.0 Const General: cooperative, healthy appearing, comfortable and no acute distress Orientation/consciousness: patient oriented x3 Neck Neck: Yes normal visual inspection Resp Effort & Inspection: normal respiratory effort Auscultation: clear to auscultation bilaterally, no crackles, no rales, no rhonchi and no wheezes Cardio Jugular venous distension: no JVD Rate: regular rate Rhythm: regular rhythm Heart sounds: S1 normal heart sound present, S2 normal heart sound present, no murmurs and no rubs Neuro General: patient oriented x3 Extrem General: Yes normal to inspection and No no pedal edema Psych Appearance: grossly normal Mental Status: mental status grossly normal Speech and movement: Normal speech and movement present Office Procedures EKG Details: Today Read by me, atrial fibrillation, left axis, nonspecific ST abnormality, rate 69, QTC 409 millisecond [id number], Complete Assessment & Plan Assessment & Plan (1) A-fib: Comment: with RVR , ECHO 05/20 reduced EF 49%, improved ejection fraction to 60% 03/21 Code(s): I48.91 - Unspecified atrial fibrillation Category: Medical Qualifiers: Atrial fibrillation type: longstanding persistent Qualified Code(s): I48.11 - Longstanding persistent atrial fibrillation Plan: Persistent atrial fibrillation, treated with heart rate control. Currently on metoprolol and digoxin. An echocardiogram was done 03/29/2023 showing EF 55- 60%, no valve abnormalities. Previously had reduced EF, Improvement in EF likely reflects better rate control with AFib. Holter monitor done 07/25/2023 for 3 days shows atrial fibrillation with average heart rate 79, no pauses greater than 3 seconds, rare PVCs. Labs done 04/30/2024 showed Digoxin level 0.7, creatinine 0.81. EKG today shows atrial fibrillation, left axis deviation, nonspecific ST abnormalities, rate 69. Will have her reduce digoxin to 6 days a week, holding 1 day a week to help ensure her level does not elevate. She is on Eliquis 5 mg b.i.d. for anticoagulation. No bleeding issues reported. Cardiology follow-up in 6 months, sooner if needed. (2) Cardiomyopathy: Comment: Echo 06/21 EF 49%, global hypokinesis, nl valves, repeat Echo 03/21 EF 60%, nl valves Code(s): I42.9 - Cardiomyopathy, unspecified Category: Medical Plan: EF previously mildly reduced. Thought to be related to AFib with uncontrolled rates. Now on better rate control and EF has normalized. Continue metoprolol XL and irbesartan. (3) HTN (hypertension): Code(s): I10 - Essential (primary) hypertension Category: Medical Plan: Well controlled at present. Continue metoprolol, irbesartan and triamterene/hydrochlorothiazide. (4) Preop cardiovascular exam: Code(s): Z01.810 - Encounter for preprocedural cardiovascular examination Category: Medical Plan: Preop for right total knee replacement with Dr. Lau at [facility], office fax [phone]. Activity less than 4 Mets. Nuclear stress test has been ordered to evaluate for any ischemia. Preop clearance to be completed once results of stress test are known. - if stress test is normal she can likely proceed with right total knee replacement with low to intermediate cardiac risk. She is on Eliquis which will need to be held 2-3 days prior to her procedure. Plan restart as soon as cleared by surgeon to do so. Continue blood pressure and rate slowing agents. Call/Cardiology if needed. Plan Time spent on chart review, documentation, interview and assessment Medications: Changed From digoxin 125 mcg PO DAILY 90 tabs 3RF To digoxin 125 mcg orally 6 days a week; Reduced - ( may not need refill yet) 78 tabs 3RF Coding Level of Care Code Est Pt Level 4 (86726) Complex EM visit Add On G2211 Diagnoses Longstanding persistent atrial fibrillation I48.11 Atrial fibrillation type: longstanding persistent Cardiomyopathy I42.9 HTN (hypertension) I10 Preop cardiovascular exam Z01.810 CPT Codes EKG - CPT: [id number], Complete ([id number]) Time Spent (min) 30
--- OUTSIDE RECORDS SUMMARY | 2024-08-09 19:09 | XMS_ITS | Encounter Summary ---
Author Organization [facility] Address [id number] [place] [id number] Care Team Providers Care Linen Room Custodian Name Role Phone Faith Elizondo MD Primary Care Provider [phone] Reason for Visit * Reason Onset Date Comments Surgery 07/10/2024 Encounter Details Date Type Department Care Team (Late st Contact Info) Description 07/10/2024 Telephone Orthopedic Surgery - [place] [address] [address] Melody Nickerson MA Surgery Social History Tobacco Use Types Packs/Day Years Used Date Smoking Tobacco: Never Smokeless Tobacco: Never Alcohol Use Standard Drinks/Week Comments Never 0 (1 standard drink = 0.6 oz pur e alcohol) Comments Unknown Sex and Gender Information Value Date Recorded Sex Assigned at Not on file Legal Sex Female 10:36 PM EST Gender Identity Not on file Sexual Orientation Not on file documented as of this encounter Progress Notes * Melody Nickerson MA - 07/10/2024 1:34 PM EST 07/10/24 Left for patients daughter to call back to schedule surgery ([phone] [facility]) as patient requested I call daughter as she does not speak fijian documented in this encounter Plan of Treatment Upcoming Encounters Date Type Department Care Team (Latest Contact Info) Description 09/05/2024 1:00 PM EDT Consult Orthopedic Surgery - [place] [address] [address] Patsy Whitaker NP [address] [address] 09/18/2024 7:30 AM EDT Hospital Encounter [facility] [place] [address] [place] [id number] Gregg Lau MD [address] [address] 09/18/2024 7:30 AM EDT - 09/18/2024 10:00 AM EDT Surgery [facility] [place] [address] [place] [address] Gregg Lau MD [address] [address] RIGHT TOTAL KNEE ARTHROPLASTY [[id number] (CPT??)] 10/03/2024 11:30 AM EDT Office Visit Orthopedic Surgery - [place] [id number] [id number] Gregg Lau MD [address] [address] Scheduled Procedures Name Priority Associated Diagnoses Date/Ti me ARTHROPLASTY KNEE TOTAL Primary osteoarthritis of right knee 09/18/2024 7:30 AM EDT documented as of this encounter Visit Diagnoses Not on filedocumented in this encounter Care Teams Linen Room Custodian Relationship Specialty Start Date End Date Faith Elizondo MD PCP - General Internal Medicine 06/14/24 documented as of this encounter
--- OUTSIDE RECORDS SUMMARY | 2024-08-09 19:09 | XMS_ITS | Clinical Summary ---
Author Organization 175 [facility] Address 175 [place] [address] Phone Care Team Providers Care Marketing Account Executive Name Role Phone Faith Elizondo MD Primary Care Provider [phone] Allergies No known active allergies Medications apixaban (ELIQUIS) 2.5 mg tablet Take by mouth. Active hydroCHLOROthia zide (MICROZIDE) 12.5 mg capsule 12.5 mg. 03/19/2013 Act [place] losartan (COZAAR) 100 mg tablet 100 mg. 02/17/2012 Active metoprolol tartrate (LOPRESSOR) 50 mg tablet 50 mg. 02/17/2012 Active pravastatin (PRAVACHOL) 40 mg tablet 40 mg. 02/17/2012 Active triamcinolone (KENALOG) 0.1 % cream APPLY TO AFFECTED AREA TWO TIMES A DAY 09/10/2014 Active Active Problems Problem Noted Date Diagnosed Date Primary osteoarthritis of right knee 07/05/2024 S/P GUSTAVO-BSO 07/05/2024 Insomnia 07/05/2024 Anxiety 07/05/2024 Hypertension 06/14/2024 Hyperlipidemia 06/14/2024 Atrial fibrillation 06/14/2024 Encounters Date Type Department Care Team Description 07/10/[address] [facility] [address] [phone] Melody Nickerson MA Surgery 07/05/2024 9:00 AM EST Office Visit Orthopedic [facility] [address] [phone] Gregg Lau MD Primary osteoarthritis of right knee (Primary Dx) 06/14/2024 9:30 AM EST Consult Orthopedic Surgery [facility] [address] [phone] Patsy Whitaker NP Primary osteoarthritis of right knee (Primary Dx); Right knee pain from Last 3 Months Medical History Medical History Date Comments Essential hypertension DX:Essent ial hypertension Hyperlipidemia DX:Hyperlipidemi a Social History Tobacco Use Types Packs/Day Years Used Date Smoking Tobacco: Never Smokeless Tobacco: Never Alcohol Use Standard Drinks/Week Comments Never 0 (1 standard drink = 0.6 oz pur e alcohol) Comments Unknown Sex and Gender Information Value Date Recorded Sex Assigned at Not on file Legal Sex Female 10:36 PM EST Gender Identity Not on file Sexual Orientation Not on file Obstetrics History Last Filed Vital Signs Vital Sign Reading Time Taken Comments Blood Pressure - - Pulse - - Temperature - - Respiratory Rate - - Oxygen Saturation - - Inhaled Oxygen Concentration - - Weight 71.2 kg (157 lb) 06/14/2024 9:38 AM EST Height 165.1 cm (5' 5 ) 06/14/2024 9:38 AM EST Body Mass Index 26.13 06/14/2024 9:38 AM EST Plan of Treatment Upcoming Encounters Date Type Department Care Team (Latest Contact Info) Description 09/05/2024 1:00 PM EDT Consult Orthopedic Surgery [place] [address] [phone] Patsy Whitaker NP [address] [address] 09/18/2024 7:30 AM EDT Hospital Encounter [facility] [place] [address] [place] [phone] Gregg Lau MD [address] [address] 09/18/2024 7:30 AM EDT - 09/18/2024 10:[address] [facility] [place] [address] [place] [phone] Gregg Lau MD [address] [address] RIGHT TOTAL KNEE ARTHROPLASTY [83060 (CPT??)] 10/03/2024 11:30 AM EDT Office Visit Orthopedic Surgery - [place] [address] [phone] Gregg Lau MD [address] [address] Scheduled Procedures Name Priority Associated Diagnoses Date/Ti me ARTHROPLASTY KNEE TOTAL Primary osteoarthritis of right knee 09/18/2024 7:30 AM EDT Health Maintenance Due Date Last Done Comments Zoster Vaccines (1 of 2) 1996 RSV Immunization Patients 60+ Years Old (1 - 1-dose 75+ series) 2021 DTaP,Tdap,and Td Vaccines (2 - Td or Tdap) 10/07/2021 10/08/2011 Cholesterol Screening (Lipid Panel) 05/09/2022 Depression Screening 05/09/2022 Falls Risk Assessment 05/09/2022 Hepatitis C Screening 05/09/2022 Medicare Annual Wellness Visit 05/09/2022 Osteoporosis Screening (Bone Density Screening) 05/09/2022 Social Influencers of Health Screening 05/09/2022 COVID-19 Vaccine ( season) 2024 06/29/2021, 10/22/2020, 10/01/2020 Influenza Vaccine (#1) 2024 2, 04/10/2021, 04/18/2020, Additional history exists Hypertension/CHF/CAD Annual BMP Blood Test 06/14/2024 Pneumococcal Vaccine: 50+ Years Completed 02/10/2016, 02/17/2012 HIB Vaccines Aged Out No longer eligi ble based on patient's age to complete this topic HPV Vaccines Aged Out No longer eligi ble based on patient's age to complete this topic Hepatitis A Vaccines Aged Out No long er eligible based on patient's age to complete this topic Hepatitis B Vaccines Aged Out No long er eligible based on patient's age to complete this topic IPV Vaccines Aged Out No longer eligi ble based on patient's age to complete this topic MMR Vaccines Aged Out No longer eligi ble based on patient's age to complete this topic Meningococcal ACWY Vaccine Aged Out N o longer eligible based on patient's age to complete this topic Meningococcal B Vacine Aged Out No lo nger eligible based on patient's age to complete this topic RSV Immunization Patients Under 20 months Aged Out No longer eligible based on patient's age to complete this topic Varicella Vaccines Aged Out No longer eligible based on patient's age to complete this topic Procedures Procedure Name Priority Date/Time Associated Diagnosis Comments XR KNEE 4+ VIEWS RIGHT Routine 06/14/2024 9:34 AM EST Right knee pain [place] ARTHROCENTESIS/ASP IRATION/INJECTION MAJOR JOINT/BURSA W/O U/S GUIDANCE Routine 06/14/2024 9:30 AM EST Primary osteoarthritis of right knee from Last 3 Months Results * XR Knee 4+ Views Right (06/14/2024 9:34 AM EST) Anatomical Region Laterality Modality Lower Extremities, Knee Right Computed Radiography Narrative 06/14/2024 10:23 AM EST Date of Visit: 06/14/2024 Reason for visit: ?? Right knee pain Views: AP, Lateral, Leal, Linton right knee Findings: On AP view there is severe narrowing through the medial compartment of the right knee with [id number]-uj-evlc articulation, subchondral sclerosis and marginal osteophytes. ??On lateral view there is evidence of moderate osteophytes at the superior and inferior patella. ??Moderate degenerative changes through the patellofemoral compartment as well. ??No acute findings. Impression: Severe osteoarthritis right knee us Patsy Whitaker NP IMG XR PROCEDURES Final Result * [place] ARTHROCENTESIS/ASPIRATION/INJECTION MAJOR JOINT/BURSA W/O U/S GUIDANCE (06/14/2024 9:30 AM EST) Narrative Gregg Lau MD - 06/14/2024 9:30 AM EST Patsy Whitaker NP ? 06/15/2024 12:02 PM L Inj/Asp: R knee Indications: pain Details: 25 G needle, anterolateral approach Medications: 80 mg triamcinolone acetonide 40 mg/mL Outcome: tolerated well, no immediate complications Informed Consent: ??Laterality: ??Right ??Relevant images/test results available and reviewed: yes ?Health status cleared: ??Yes ??Procedure/treatment, purpose, treatment alternatives, risks/potential complications and benefits explained: yes ?Patient questions answered: yes ?Patient agrees, verbalizes understanding, and wants to proceed: yes ?Consent given by: ??Patient ??Informed consent discussion completed by Physician/LIBAN with patient: ?? Verbal ??Pre-procedure timeout performed: yes ?? Patsy Whitaker TRIPE WASHER IN CLINIC/BEDSIDE ORDER GOLDEN Final Result from Last 3 Months Insurance [place] - [place] Care Teams Marketing Account Executive Relationship Specialty Start Date End Date Faith Elizondo MD PCP - General Internal Medicine 06/14/24
== END 2024-08-09 16:18 | disposition home or self-care (01) ==
LOC: HO.HCS 15:40
PROVIDERS: PCP Internal Medicine; Visit Provider Nurse Practitioner Family
DX: I48.11 Longstanding persistent atrial fibrillation (principal); I42.9 Cardiomyopathy, unspecified; I10 Essential (primary) hypertension; Z01.810 Encounter for preprocedural cardiovascular examination
CPT/HCPCS: 99214; G2211

== ENCOUNTER → 2024-08-09 15:39 | Outpatient (BNVA) | payer MEDICARE, MEDICAID, SELFPAY | PROVIDERS: PCP Internal Medicine; Visit Provider Nurse Practitioner Family | DX: Z01.810 Encounter for preprocedural cardiovascular examination (principal); I10 Essential (primary) hypertension; I42.9 Cardiomyopathy, unspecified; I48.11 Longstanding persistent atrial fibrillation; E78.5 Hyperlipidemia, unspecified | CPT/HCPCS: 99212 ==

== ENCOUNTER 2024-08-13 13:00 | Outpatient (AMB) | payer MEDICARE, MEDICAID, SELFPAY ==
[2024-08-13 13:11] VITALS: BP 120/70; PULSE 82; RESP 18; TEMP 36.7; O2SAT 97; BMI 26.4
--- NOTE | 2024-08-13 13:11 | MHC.PC.OV ---
Vital Signs 08/13/24 13:11 Height 5 ft 4 in Weight 154 lb BMI 26.4 BP 120/70 Blood Pressure Location Lt brachial Position Sitting Respiration 18 Pulse 82 Pulse Source Pulse Oximeter Temp 98.1 F Temp Source Oral Pulse Oximetry (%) 97 Oxygen Delivery Method Room Air Intake Visit Reasons: PE Intake Note: Pt is here today for PE. Pt states that she is still getting rash around her mouth. Pt also states that she is having post nasal drip. Allergies No Known Allergies Allergy (Verified 08/13/24 13:13) Medication List - Last Reconciled 08/13/24 by Faith Elizondo MD apixaban (Eliquis) 5 mg PO BID clotrimazole 1% 1 appl topical BID digoxin 125 mcg orally 6 days a week; Reduced - ( may not need refill yet) irbesartan 300 mg PO DAILY ketoconazole 2% 1 appl topical DAILY metoprolol succinate ER 75 mg (1.5 x 50 mg) PO BID pravastatin 40 mg PO DAILY sertraline 50 mg PO DAILY triamcinolone acetonide 0.1% 1 appl topical DAILY triamterene-hydrochlorothiazid 37.5-25 mg 1 tab PO DAILY valacyclovir (Valtrex) 2,000 mg (2 x 1 gram) PO BID Tobacco use date assessed: 08/13/24 Fall risk assessment: 2 + Falls in past year Last assessed Fall Risk: 08/13/24 Dental Screening Dental Screen Date: 08/13/24 Did you have a dental visit in the last 12 months?: No Did you have a dental problem in the last 6 months where you did not have access to dental care?: No Was dental information given to patient?: Patient declined HPI PE HPI Details Patient presents for physical. She is going for right knee replacement surgery next month. Patient denies chest pain shortness or breath palpitations. [facility] Medical History Sinusitis Rash Annual physical exam Anxiety Osteoarthritis Endometrial ca Thyroid nodule Chronic insomnia Hyperlipidemia HTN (hypertension) Surgical History H/O colonoscopy S/P GUSTAVO-BSO No pertinent past surgical history Family History Father No problems noted. Mother No problems noted. Social History Housing: House Alcohol intake: never Patient Tobacco Use Status: Never used Tobacco e-Cigarette/Vaping Use: Never Used service: No Current occupational status: retired Cognitive needs: No Hearing needs: No Vision needs: Yes Questionnaire PHQ-9 Over the last 2 weeks, how often have you been bothered by any of the following problems? 1. Little interest or pleasure in doing things: not at all 2. Feeling down, depressed, or hopeless: not at all 3. Trouble falling or staying asleep, or sleeping too much: not at all 4. Feeling tired or having little energy: not at all 5. Poor appetite or overeating: not at all 6. Feeling bad about yourself - or that you are a failure or have let yourself or your family down: not at all 7. Trouble concentrating on things, such as reading the newspaper or watching television: not at all 8. Moving or speaking so slowly that other people could have noticed. Or the opposite - being so fidgety or restless that you have been moving around a lot more than usual: not at all 9. Thoughts that you would be better off or of hurting yourself in some way: not at all Total score: 0 Depression Screening Interpretation: Negative Depression Screening Done: Yes 96848 - PHQ-9 Billing: Yes Source: Developed by Drs. Eddie Garcia, Elma Castaneda, Genaro Alvarado and colleagues, with an educational piter from [email or web address]. Thrive Questionnaire Date Thrive assessed: 08/13/24 I am a: Patient What is your living situation today?: I have a steady place to live Within the past 12 months, did the food you bought not last and you didn't have the money to get more?: I choose not to answer this question Within the past 12 months, did you worry whether your food would run out before you got money to buy more?: Never true Do you have trouble paying for medicines?: I choose not to answer this question Do you have trouble getting transportation to medical appointments?: No Do you have trouble paying your heating and electricity bill?: No Do you have trouble taking care of your child, family member or friend?: No Do you have trouble with day-to-day activities such as bathing, preparing meals, shopping, managing finances, etc.?: Yes Are you currently unemployed and looking for a job?: No Are you interested in more education?: No Please select the resources that you would like help with: None Currently or been in a relationship where the following occur: I choose not to answer THRIVE Score: 0 AUDIT C Alcohol Use Questionnaire (AUDIT-C) 1. How often do you have a drink containing alcohol?: Never 3. How often do you have six or more drinks on one occasion?: Never Total Score: 0 MADIE-7 AMB Questionnaire MADIE-7 Date MADIE - 7 assessed: 08/13/24 Feeling nervous, anxious, or on edge: 0 = Not at all Not being able to stop or control worryin = Several days Worrying too much about different things: 1 = Several days Trouble relaxin = Not at all Being so restless that it is hard to sit still: 0 = Not at all Becoming easily annoyed or irritable: 0 = Not at all Feeling afraid as if something awful might happen: 0 = Not at all Total MADIE-7 score (0-4 normal; 5-9 mild; 10-14 moderate; 15-21 severe): 2 Source: Developed by Drs. Eddie Garcia, Elma Castaneda, Genaro Alvarado and colleagues, with an educational piter from [email or web address]. MADIE-7 Assessment Billing MADIE-7 Assessment Tool: MADIE-7 Assessment 38721 Review of Systems Const All systems reviewed & are unremarkable except as noted in HPI and below Eyes Reports no additional complaints ENT Reports no additional complaints Card Reports no additional complaints Resp Reports no additional complaints GI Reports no additional complaints Reports no additional complaints Physical exam (Primary Care) Vital Signs: Last Vital Signs Temp 98.1 F 08/13/24 13:11 Pulse 82 08/13/24 13:11 Resp 18 08/13/24 13:11 BP 120/70 08/13/24 13:11 Pulse Ox 97 08/13/24 13:11 Oxygen Delivery Method Room Air 08/13/24 13:11 BMI result Body Mass Index 26.4 Tobacco/Smoking Status: Tobacco use Status Tobacco use date assessed 08/13/24 08/13/24 13:14 Patient Tobacco Use Status Never used Tobacco 08/13/24 13:14 e-Cigarette/Vaping Use Never Used 08/13/24 13:14 PHQ-9: PHQ-9 Score PHQ-9: Total score 0 08/13/24 13:14 Depression Screening Interpretation: Negative Thrive Assessment: Date of Thrive Assessment Date Thrive assessed 08/13/24 08/13/24 13:14 Currently or been in a relationship where the following occur: I choose not to answer Const General: no acute distress HENMT Face and sinus: Yes normal facial exam Mouth: Normal oral and palatal mucosa present Throat: Yes posterior oropharynx normal Neck Neck: Yes no lymphadenopathy and Yes supple Resp Effort & Inspection: normal respiratory effort Auscultation: clear to auscultation bilaterally Cardio Rhythm: regular rhythm Heart sounds: S1 normal heart sound present and S2 normal heart sound present GI Inspection: Yes normal to inspection Palpation (GI): Soft to palpation Percussion: Yes normal to percussion Auscultation: normal bowel sounds Coding Level of Care Code Est Pt Prev Care >65y(30228) Diagnoses Persistent atrial fibrillation I48.19 HTN (hypertension) I10 Hyperlipidemia E78.5 Vitamin D deficiency E55.9 Annual physical exam Z00.00 Additional Codes MADIE-7 Assessment Billing - MADIE-7 Assessment Tool: MADIE-7 Assessment 98559 ([id number]) PHQ-9 - 03346 - PHQ-9 Billing: Yes ([id number]) Assessment & Plan Assessment & Plan (1) Persistent atrial fibrillation: Code(s): I48.19 - Other persistent atrial fibrillation Category: Medical Plan: Rate controlled on beta kimani and digoxin anticoagulated on Eliquis (2) HTN (hypertension): Code(s): I10 - Essential (primary) hypertension Category: Medical Plan: Continue current medications (3) Hyperlipidemia: Code(s): E78.5 - Hyperlipidemia, unspecified Category: Medical Plan: Continue statin patient will return for fasting blood work (4) Vitamin D deficiency: Code(s): E55.9 - Vitamin D deficiency, unspecified Category: Medical Plan: Continue vitamin-D supplement (5) Annual physical exam: Code(s): Z00.00 - Encounter for general adult medical examination without abnormal findings Category: Medical Plan: Well-balanced diet increase physical activity discussed with the patient, follow-up in 6 months with a fasting labs before Orders: Orders Lipid Panel 6 Months E55.9 - Vitamin D deficiency, unspecified, E78.5 - Hyperlipidemia, unspecified, I10 - Essential (primary) hypertension, I48.19 - Other persistent atrial fibrillation Comprehensive [place]. Panel Fast 6 Months E55.9 - Vitamin D deficiency, unspecified, E78.5 - Hyperlipidemia, unspecified, I10 - Essential (primary) hypertension, I48.19 - Other persistent atrial fibrillation Complete Blood Count Auto Diff 6 Months E55.9 - Vitamin D deficiency, unspecified, E78.5 - Hyperlipidemia, unspecified, I10 - Essential (primary) hypertension, I48.19 - Other persistent atrial fibrillation Digoxin 6 Months E55.9 - Vitamin D deficiency, unspecified, E78.5 - Hyperlipidemia, unspecified, I10 - Essential (primary) hypertension, I48.19 - Other persistent atrial fibrillation Hemoglobin A1c 6 Months E55.9 - Vitamin D deficiency, unspecified, E78.5 - Hyperlipidemia, unspecified, I10 - Essential (primary) hypertension, I48.19 - Other persistent atrial fibrillation Vitamin D 25-OH Total 6 Months E55.9 - Vitamin D deficiency, unspecified, E78.5 - Hyperlipidemia, unspecified, I10 - Essential (primary) hypertension, I48.19 - Other persistent atrial fibrillation Medications: New valacyclovir (Valtrex) 2,000 mg (2 x 1 gram) PO BID 12 tabs 1RF
== END 2024-08-13 14:25 | disposition home or self-care (01) ==
LOC: HO.HMCC 13:01
PROVIDERS: PCP Internal Medicine; Visit Provider Internal Medicine
DX: Z00.00 Encounter for general adult medical examination without abnormal findings (principal); I48.19 Other persistent atrial fibrillation; I10 Essential (primary) hypertension; E78.5 Hyperlipidemia, unspecified; E55.9 Vitamin D deficiency, unspecified

== ENCOUNTER → 2024-08-13 13:00 | Outpatient (BNVA) | payer MEDICARE, MEDICAID, SELFPAY | PROVIDERS: PCP Internal Medicine; Visit Provider Internal Medicine | DX: Z00.00 Encounter for general adult medical examination without abnormal findings (principal); I48.19 Other persistent atrial fibrillation; I10 Essential (primary) hypertension; E78.5 Hyperlipidemia, unspecified; E55.9 Vitamin D deficiency, unspecified | CPT/HCPCS: 96127; 99397 ==

== ENCOUNTER 2024-08-29 06:13 | Outpatient (REF) | payer MEDICARE, MEDICAID, SELFPAY ==
--- OUTSIDE RECORDS SUMMARY | 2024-08-29 06:15 | XMS_ITS | Clinical Summary ---
Author Organization 175 [facility] Address [address] [place] [address] Phone Care Team Providers Care Asset Availability Leader Name Role Phone Faith Elizondo MD Primary Care Provider [phone] Allergies No known active allergies Medications apixaban [...] Encounters Date Type Department Care Team Description 08/24/2024 Telephone Orthopedic [facility] [address] [phone] Lesli Perkins RN PREOP REVIEW 07/10/2024 Telephone Orthopedic [facility] [address] [phone] Melody Nickerson MA Surgery 07/05/2024 9:00 AM EST Office Visit Orthopedic [facility] [address] [phone] Gregg Lau MD Primary osteoarthritis of right knee (Primary Dx) 06/14/2024 9:30 AM EST Consult Orthopedic Surgery [place] [address] [phone] Patsy Whitaker NP Primary osteoarthritis of right knee (Primary Dx); Right knee pain from Last 3 Months Surgical History Surgery Date Site/Laterality Comments TOTAL ABDOMINAL HYSTERECTOMY W/ BILATERAL SALPINGOOPHORECTOMY Medical History Medical History Date Comments Essential hypertension DX:Essent ial hypertension Hyperlipidemia DX:Hyperlipidemi a A-fib (CMS/HCC) OA (osteoarthritis) Insomnia Anxiety Social History Tobacco Use Types Packs/Day Years [...] - Inhaled Oxygen Concentration - - Weight 69 kg (152 lb 1.9 oz) 08/24/2024 11:00 AM EDT Height 165.1 cm (5' 5 ) 08/24/2024 11:00 AM EDT Body Mass Index 25.31 08/24/2024 11:00 AM EDT Plan of Treatment Upcoming Encounters Date Type Department Care Team (Latest Contact Info) Description 09/05/2024 1:00 PM EDT Consult Orthopedic Surgery [place] [address] [phone] Patsy Whitaker NP [address] [address] 09/18/2024 7:30 AM EDT Hospital Encounter [facility] [place] [address] [place] [phone] Gregg Lau MD [address] [address] 09/18/2024 7:30 AM EDT - 09/18/2024 10:[address] [facility] OR [address] [place] [phone] Gregg Lau MD [address] [address] RIGHT TOTAL KNEE ARTHROPLASTY [[id number] (CPT??)] 10/03/2024 11:30 AM EDT Office Visit Orthopedic Surgery - [place] [address] [phone] Gregg Lau MD [address] [address] Scheduled Procedures Name Priority Associated Diagnoses Date/Ti [...] 06/14/2024 9:34 AM EST Right knee pain [place] ARTHROCENTESIS/ASP IRATION/INJECTION MAJOR JOINT/BURSA W/O U/S GUIDANCE Routine 06/14/2024 9:30 AM EST Primary osteoarthritis of right knee from Last 3 Months Results * XR Knee 4+ Views Right (06/14/2024 9:34 AM EST) Anatomical Region Laterality Modality Lower Extremities, Knee Right Computed Radiography Narrative 06/14/2024 10:23 AM EST Date of Visit: 06/14/2024 Reason for visit: ?? Right knee pain Views: AP, Lateral, Leal, Patten right knee Findings: On AP view there is severe narrowing through the medial compartment of the right knee with [id number]-cj-bhgi articulation, subchondral sclerosis and marginal osteophytes. ??On lateral view there is evidence of moderate osteophytes at the superior and inferior patella. ??Moderate degenerative changes through the patellofemoral compartment as well. ??No acute findings. Impression: Severe osteoarthritis right knee Patsy Whitaker NP IMG XR PROCEDURES Final Result * [place] ARTHROCENTESIS/ASPIRATION/INJECTION MAJOR JOINT/BURSA W/O U/S GUIDANCE (06/14/2024 9:30 AM EST) Gregg Gleason MD - 06/14/2024 9:30 AM ALCON Whitaker NP ? 06/15/2024 12:02 PM L [...] ??Pre-procedure timeout performed: yes ?? Patsy Whitaker TECHNICAL ILLUSTRATOR IN CLINIC/BEDSIDE ORDER GOLDEN Final Result from Last 3 Months Insurance [place] - [place]ARE Care Teams Asset Availability Leader Relationship Specialty Start Date End Date Faith Elizondo MD [address] [place] [address] PCP - General Internal Medicine 06/14/24
--- OUTSIDE RECORDS SUMMARY | 2024-08-29 06:15 | XMS_ITS | Encounter Summary ---
Author Organization [facility] Address [address] [place] [address] Care Team Providers Care Clinical Studies Specialist Name Role Phone Faith Elizondo MD Primary Care Provider [phone] Reason for Visit * Reason Onset Date Comments PREOP REVIEW 08/24/2024 Encounter Details Date Type Department Care Team (Late st Contact Info) Description 08/24/2024 Telephone Orthopedic Surgery - [place] [address] [place] [phone] Lesli Perkins RN PREOP REVIEW Social History Tobacco Use Types Packs/Day Years [...] as of this encounter Progress Notes * Lesli Perkins RN - 08/24/2024 11:55 AM EDT PRE-OP REVIEW: Prior Living Arrangements: Lives alone in a 4-family home on 1st floor, however her 2 daughters will be staying with her as she recovers after surgery, there are 3 stairs with bilat railings to enter, once inside everything is on one level Who will assist patient at home: her two daughters DME: family will get 2 ww and cane Outside Services: none PCP: Dr. Elizondo HCP: does not have a HCP, will need to complete one prior to surgery Patient's discharge goal: home with [facility], agency of choice and prebooked Patient's ride home: Precious Gaytan [phone] This nurse instructed patient NPO after midnight the day prior to surgery and small sips of H20 with medications on day of surgery. Patient instructed not to take hydrochlorothiazidea and losartan onday of surgery. Also MD to instruct patient on Eliquis. documented in this encounter Plan of Treatment Upcoming Encounters Date Type Department Care Team (Latest Contact Info) Description 09/05/2024 1:00 PM EDT Consult Orthopedic Surgery [place] [address] [phone] Patsy Whitaker NP [address] [address] 09/18/2024 7:30 AM EDT Hospital Encounter [facility] OR [address] [place] [phone] Gregg Lau MD [address] [address] 09/18/2024 7:30 AM EDT - 09/18/2024 10:00 AM EDT Surgery [facility] OR [address] [place] [phone] Gregg Lau MD [address] [address] RIGHT TOTAL KNEE ARTHROPLASTY [[id number] (CPT??)] 10/03/2024 11:30 AM EDT Office Visit Orthopedic Surgery [place] [address] [phone] Gregg Lau MD [address] [address] Scheduled Procedures Name Priority Associated Diagnoses Date/Ti me ARTHROPLASTY KNEE TOTAL Primary osteoarthritis of right knee 09/18/2024 7:30 AM EDT documented as of this encounter Visit Diagnoses Not on filedocumented in this encounter Care Teams Clinical Studies Specialist Relationship Specialty Start Date End Date Cichon, Faith, MD [address] [place] [address] PCP - General Internal Medicine 06/14/24 documented as of this encounter
[2024-08-29 10:41] LABS: Estimated Average Glucose 131 mg/dL; Hemoglobin A1C 151.4446 umol/L; Hemoglobin A1c % 6.2 % (<6.0); Total Hemoglobin (HGBA1C) 3447.9232 umol/L
[2024-08-29 11:20] LABS: Creatinine Urine 150.08 mg/dL; Microalbum/Creatinine Ratio Ur 5.3 ug/mg cr (<30)
[2024-08-29 12:03] LABS: Alanine Aminotransferase 71 U/L (0-31); Anion Gap 11 (12-20); Aspartate Amino Transferase 59 U/L (5-31); Bilirubin Total 0.6 mg/dL (0.0-1.0); Blood Urea Nitrogen 17 mg/dL (9-16); Calcium 9.3 mg/dL (8.4-10.2); Carbon Dioxide 24 mmol/L (22-29); Chloride 106 mmol/L (96-108); Cholesterol 152 mg/dL (<200); Estimated Glomerular Filt Rate > 60; Glucose Fasting 129 mg/dL (60-99); HDL Cholesterol 35 mg/dL (>40); LDL Cholesterol Calculated 86 mg/dL (<100); Potassium 4.2 mmol/L (3.3-5.1); Sodium 137 mmol/L (135-145); Total Protein 7.7 g/dL (6.5-8.0); Triglycerides 159 mg/dL (<150)
[2024-08-29 12:07] LABS: Alkaline Phosphatase 61 U/L (39-117)
== END 2024-08-29 06:14 | disposition home or self-care (01) ==
LOC: HO.HMGCLDS 06:13
PROVIDERS: PCP Internal Medicine; Visit Provider Internal Medicine
DX: I48.19 Other persistent atrial fibrillation (principal); I42.9 Cardiomyopathy, unspecified; E78.5 Hyperlipidemia, unspecified; I10 Essential (primary) hypertension; R73.9 Hyperglycemia, unspecified; I48.91 Unspecified atrial fibrillation
CPT/HCPCS: 36415; 80053; 80061; 82043; 82570; 83036

== ENCOUNTER 2024-08-30 10:15 | Outpatient (AMB) | payer MEDICARE, MEDICAID, SELFPAY ==
--- NOTE | 2024-08-30 10:18 | MHC.PC.OV ---
Vital Signs 08/30/24 10:19 Height 5 ft 4 in Weight 153 lb BMI 26.3 BP 104/60 Blood Pressure Location Lt brachial Position Sitting Respiration 18 Pulse 78 Pulse Source Pulse Oximeter Temp 98.1 F Temp Source Oral Pulse Oximetry (%) 96 Oxygen Delivery Method Room Air Intake Visit Reasons: Pre op [facility] surgery on 09/18/24 Intake Note: Pt is here today for pre op visit. Pt is having surgery for R knee on 09/18/24. Allergies No Known Allergies Allergy (Verified 08/30/24 10:24) Medication List - Last Reconciled 08/30/24 by Faith Elizondo MD apixaban (Eliquis) 5 mg PO BID clotrimazole 1% 1 appl topical BID digoxin 125 mcg orally 6 days a week; Reduced - ( may not need refill yet) irbesartan 300 mg PO DAILY ketoconazole 2% 1 appl topical DAILY metoprolol succinate ER 75 mg (1.5 x 50 mg) PO BID pravastatin 40 mg PO DAILY sertraline 50 mg PO DAILY triamcinolone acetonide 0.1% 1 appl topical DAILY triamterene-hydrochlorothiazid 37.5-25 mg 1 tab PO DAILY valacyclovir (Valtrex) 2,000 mg (2 x 1 gram) PO BID Tobacco use date assessed: 08/30/24 Fall risk assessment: 2 + Falls in past year Last assessed Fall Risk: 08/30/24 Dental Screening Dental Screen Date: 08/30/24 Did you have a dental visit in the last 12 months?: No Did you have a dental problem in the last 6 months where you did not have access to dental care?: No Was dental information given to patient?: Patient declined HPI Pre op [facility] surgery on 09/18/24 HPI Details She presents for the preop for knee arthroplasty surgery. Hypertension hyperlipidemia chronic AFib are controlled on current medications. Patient is scheduled for nuclear stress test. Patient denies chest pain shortness or breath palpitations PND orthopnea. Chronic anxiety is controlled on sertraline. [facility] Medical History (Updated 08/30/24 @ 11:10 by Faith Elizondo MD) Sinusitis Rash Annual physical exam Anxiety Osteoarthritis Endometrial ca Thyroid nodule Chronic insomnia Hyperlipidemia HTN (hypertension) Surgical History H/O colonoscopy S/P GUSTAVO-BSO No pertinent past surgical history Family History Father No problems noted. Mother No problems noted. Social History Housing: House Alcohol intake: never Patient Tobacco Use Status: Never used Tobacco e-Cigarette/Vaping Use: Never Used service: No Current occupational status: retired Cognitive needs: No Hearing needs: No Vision needs: Yes Questionnaire Thrive Questionnaire Date Thrive assessed: 08/13/24 I am a: Patient What is your living situation today?: I have a steady place to live Within the past 12 months, did the food you bought not last and you didn't have the money to get more?: I choose not to answer this question Within the past 12 months, did you worry whether your food would run out before you got money to buy more?: Never true Do you have trouble paying for medicines?: I choose not to answer this question Do you have trouble getting transportation to medical appointments?: No Do you have trouble paying your heating and electricity bill?: No Do you have trouble taking care of your child, family member or friend?: No Do you have trouble with day-to-day activities such as bathing, preparing meals, shopping, managing finances, etc.?: Yes Are you currently unemployed and looking for a job?: No Are you interested in more education?: No Please select the resources that you would like help with: None Currently or been in a relationship where the following occur: I choose not to answer THRIVE Score: 0 MADIE-7 AMB Questionnaire MADIE-7 Date MADIE - 7 assessed: 08/13/24 Source: Developed by Drs. Eddie Garcia, Elma Castaneda, Genaro Alvarado and colleagues, with an educational piter from [employer]. Review of Systems Const All systems reviewed & are unremarkable except as noted in HPI and below Reports no additional complaints Eyes Reports no additional complaints ENT Reports no additional complaints Card Reports no additional complaints Resp Reports no additional complaints GI Reports no additional complaints Reports no additional complaints Physical exam (Primary Care) Vital Signs: Last Vital Signs Temp 98.1 F 08/30/24 10:19 Pulse 78 08/30/24 10:19 Resp 18 08/30/24 10:19 BP 104/60 08/30/24 10:19 Pulse Ox 96 08/30/24 10:19 Oxygen Delivery Method Room Air 08/30/24 10:19 BMI result Body Mass Index 26.3 Tobacco/Smoking Status: Tobacco use Status Tobacco use date assessed 08/30/24 08/30/24 10:28 Patient Tobacco Use Status Never used Tobacco 08/30/24 10:20 e-Cigarette/Vaping Use Never Used 08/30/24 10:20 Thrive Assessment: Date of Thrive Assessment Date Thrive assessed 08/13/24 08/30/24 10:20 Currently or been in a relationship where the following occur: I choose not to answer Const General: no acute distress HENMT Head: Yes normal to inspection Eyes General: appearance normal, both eyes and all related structures Neck Neck: Yes no lymphadenopathy and Yes supple Resp Effort & Inspection: normal respiratory effort Auscultation: clear to auscultation bilaterally Cardio Rate: regular rate Rhythm: abnormal rhythm irregularly irregular Heart sounds: S1 normal heart sound present and S2 normal heart sound present GI Inspection: Yes normal to inspection Palpation (GI): Soft to palpation Percussion: Yes normal to percussion Auscultation: normal bowel sounds Immunizations pneumoc 20-elijah conj-dip cr(PF) 0.5 mL IM syringe Performing Provider: Faith Elizondo MD Performing Location: [facility] – [place] [facility] Administered by: LINDA Dobbs on 08/30/24 11:04 Dose Route Admin Location Dispensed Lot Number Expiration Date [facility] Scenic Artist 0.5 mL IM Left Deltoid 0.5 mL [id number] 07/27/25 8229-5218-73 SWEEPiOETH/PFIZER VIS Given Date VIS Provided VIS Publication Date 08/30/24 Single Vaccine 21 Eligibility Eligibility Date Funding Source Not [facility] Eligible 08/30/24 Private Coding Level of Care Code Est Pt Level 4 (53031) Diagnoses Persistent atrial fibrillation I48.19 Hyperlipidemia E78.5 HTN (hypertension) I10 Hyperglycemia R73.9 Osteoarthritis M19.90 Assessment & Plan Assessment & Plan (1) Persistent atrial fibrillation: Code(s): I48.19 - Other persistent atrial fibrillation Category: Medical Plan: Rate controlled on digoxin metoprolol and anticoagulated on Eliquis, EKG last week showed AFib with a heart rate of 69, no acute ST-T changes (2) Hyperlipidemia: Code(s): E78.5 - Hyperlipidemia, unspecified Category: Medical Plan: Continue statin (3) HTN (hypertension): Code(s): I10 - Essential (primary) hypertension Category: Medical Plan: Continue current medications (4) Hyperglycemia: Comment: A1C 6.2 08/2024 Code(s): R73.9 - Hyperglycemia, unspecified Category: Medical Plan: ADA diet increase exercise weight loss discussed with the patient. (5) Osteoarthritis: Comment: right knee f/u dr. Dotson Code(s): M19.90 - Unspecified osteoarthritis, unspecified site Category: Medical Plan: Patient is medically cleared for knee arthroplasty surgery Orders: Orders Pneumococcal 20 Immunization Today Z23 - Encounter for immunization
[2024-08-30 10:19] VITALS: BP 104/60; PULSE 78; RESP 18; TEMP 36.7; O2SAT 96; BMI 26.3
--- OUTSIDE RECORDS SUMMARY | 2024-08-30 11:09 | XMS_ITS | Clinical Summary ---
Author Organization 175 [facility] Address [address] [place] [address] Phone Care Team Providers Care University Services Program Associate Name Role Phone Faith Elizondo MD Primary Care Provider [phone] Allergies No known active allergies Medications apixaban [...] Department Care Team Description 08/24/2024 Telephone Orthopedic [facility] [address] [phone] Lesli Perkins RN PREOP REVIEW 07/10/2024 Telephone Orthopedic [facility] [address] [phone] Melody Nickerson MA Surgery 07/05/2024 9:00 AM EST Office Visit Orthopedic [facility] [address] [phone] Gregg Lau MD Primary osteoarthritis of right knee (Primary Dx) 06/14/2024 9:30 AM EST Consult Orthopedic Surgery [place] [address] [phone] Patsy Whitaker NP Primary osteoarthritis of right [...] 09/05/2024 1:00 PM EDT Consult Orthopedic Surgery [place] [address] [phone] Patsy Whitaker NP [address] [address] 09/18/2024 7:30 AM EDT Hospital Encounter [facility] Main OR [address] [place] [phone] Gregg Lau MD [address] [address] 09/18/2024 7:30 AM EDT - 09/18/2024 10:00 AM EDT Surgery [facility] Main OR [address] [place] [phone] Gregg Lau MD [address] [address] RIGHT TOTAL KNEE ARTHROPLASTY [[id number] (CPT??)] 10/03/2024 11:30 AM EDT Office Visit Orthopedic Surgery - [place] [address] [phone] Gregg Lau MD [address] [address] Scheduled Procedures Name Priority Associated Diagnoses Date/Ti me ARTHROPLASTY KNEE TOTAL Primary osteoarthritis of right knee 09/18/2024 7:30 AM EDT Health Maintenance Due Date Last Done Comments Zoster Vaccines (1 of 2) 1996 RSV Immunization Adult Patients (1 - 1-dose 75+ series) 2021 DTaP,Tdap,and Td Vaccines (2 - Td or Tdap) 10/07/2021 10/08/2011 Cholesterol Screening (Lipid Panel) 05/09/2022 Depression Screening 05/09/2022 Falls Risk Assessment 05/09/2022 Hepatitis C Screening 05/09/2022 Medicare Annual Wellness Visit 05/09/2022 Osteoporosis Screening (Bone Density Screening) 05/09/2022 Social Influencers of Health Screening 05/09/2022 COVID-19 Vaccine ( season) 2024 06/29/2021, 10/22/2020, 10/01/2020 Hypertension/CHF/CAD Annual BMP Blood Test 06/14/2024 Influenza Vaccine (Season Ended) 2025 04/16/2022, 04/10/2021, 04/18/2020, Additional history exists Pneumococcal Vaccine: 50+ Years Completed 02/10/2016, 02/17/2012 [...] 06/14/2024 9:34 AM EST Right knee pain CO ARTHROCENTESIS/ASP IRATION/INJECTION MAJOR JOINT/BURSA W/O U/S GUIDANCE Routine 06/14/2024 9:30 AM EST Primary osteoarthritis of right knee from Last 3 Months Results * XR Knee 4+ Views Right (06/14/2024 9:34 AM EST) Anatomical Region Laterality Modality Lower Extremities, Knee Right Computed Radiography Narrative 06/14/2024 10:23 AM EST Date of Visit: 06/14/2024 Reason for visit: ?? Right knee pain Views: AP, Lateral, Leal, [place] right knee Findings: On AP view there is severe narrowing through the medial compartment of the right knee with [id number] articulation, subchondral sclerosis and marginal osteophytes. ??On lateral view there is evidence of moderate osteophytes at the superior and inferior patella. ??Moderate degenerative changes through the patellofemoral compartment as well. ??No acute findings. Impression: Severe osteoarthritis right knee Patsy Whitaker NP IMG XR PROCEDURES Final Result * CO ARTHROCENTESIS/ASPIRATION/INJECTION MAJOR JOINT/BURSA W/O U/S GUIDANCE (06/14/2024 9:30 AM EST) Narrative Gregg Lau MD - 06/14/2024 9:30 AM ALCON Whitaker [...] ??Pre-procedure timeout performed: yes ?? Patsy Whitaker SECRETARY TO THE VICE PRESIDENT IN CLINIC/BEDSIDE ORDER GOLDEN Final Result from Last 3 Months Insurance [place] - [place]ICARE Care Teams University Services Program Associate Relationship Specialty Start Date End Date Faith Elizondo MD [address] [place] [address] PCP - General Internal Medicine 06/14/24
== END 2024-08-30 11:12 | disposition home or self-care (01) ==
LOC: HO.HMCC 10:16
PROVIDERS: PCP Internal Medicine; Visit Provider Internal Medicine
DX: I48.19 Other persistent atrial fibrillation (principal); E78.5 Hyperlipidemia, unspecified; I10 Essential (primary) hypertension; R73.9 Hyperglycemia, unspecified; M19.90 Unspecified osteoarthritis, unspecified site; Z23 Encounter for immunization

== ENCOUNTER → 2024-08-30 10:15 | Outpatient (BNVA) | payer MEDICARE, MEDICAID, SELFPAY | PROVIDERS: PCP Internal Medicine; Visit Provider Internal Medicine | DX: Z01.818 Encounter for other preprocedural examination (principal); I10 Essential (primary) hypertension; E78.5 Hyperlipidemia, unspecified; I48.19 Other persistent atrial fibrillation; R73.9 Hyperglycemia, unspecified; M19.90 Unspecified osteoarthritis, unspecified site; Z23 Encounter for immunization; Z79.899 Other long term (current) drug therapy | CPT/HCPCS: 90471; 90677; 99212 ==

== ENCOUNTER → 2024-09-04 08:45 | Outpatient (REF) | payer MEDICARE, MEDICAID, SELFPAY ==
--- NOTE | ~2024-09-04 | NM_ITS ---
Lexiscan Myocardial perfusion study Indication: Atrial fibrillation Technique: The patient was brought in for a Lexiscan perfusion study on 09/04/2024 and was injected 0.4 mg of Lexiscan intravenously. Within a minute of this injection 25 mCi of sestamibi was given intravenously. Images were obtained using the SPECT gamma camera interlaced with the gating device. Images were obtained in supine position. Resting perfusion study was performed on 09/05/2024. Patient was administered 25 mCi of sestamibi intravenously at rest. Images were then obtained in supine position. Total DLP 64 mGy-cm. Images were processed with the software and compared side to side in short axis, horizontal long axis and vertical long axis views. Findings: Raw aquisition reviewed. The stress perfusion study showed no significant perfusion defects. Both uncorrected as well as CT attenuation corrected images were reviewed. Gating not performed during stress. Resting study shows no significant perfusion defects. Gating at rest reveals normal wall motion with ejection fraction at 58%. The findings are consistent with no clear reversible or fixed perfusion defects. NM/NM cardiolite stress test Impression: 1. Myocardial perfusion imaging study shows normal myocardial perfusion. 2. Gated LVEF is 58% during rest. EKG component of the test reported separately. Electronically signed by: Meño Iverson MD 09/06/2024 09:26 AM EDT
--- NOTE | 2024-09-04 08:48 | CA_ITS ---
Acquisition Time: 2024-09-04 09:00:05 Total Exercise Time: 00:02:00 Test Indications: AFIB Medications: SEE H&P Protocol: LEXISCAN Max HR: 93 BPM 65% of Pred: 142 BPM Max BP: 128/78 mmHG Max Work Load: 1.0 METS Pharmacological stress test with Lexiscan while pt moves her legs in chair, with reports of dizziness, with isolated PVCs, with noromotensive response to injection. Nondiagnostic EKG for ischemia. In recovery, pt treated with IVP Aminophylline 75 mg to reverse Lexiscan after which pt feeling back to baseline. Nuclear images pending. Test reviewed with Dr. Gonzalez. Referred By: Donna Dominguez Electronically Signed By: Atilio Chan
--- OUTSIDE RECORDS SUMMARY | 2024-09-04 09:14 | XMS_ITS | Clinical Summary ---
Author Organization 175 [facility] Address [address] [place] [address] Phone Care Team Providers Care Residential Real Estate Agent Name Role Phone Faith Elizondo MD Primary Care Provider [phone] Allergies No known active allergies Medications apixaban [...] Encounters Date Type Department Care Team Description 09/03/2024 [place] [address] [phone] Lesli Perkins RN Cardiac Clearance 09/03/2024 [facility] [address] [phone] Lesli Perkins, RN Labs and PROM 08/31/2024 [facility] [address] [phone] Lesli Perkins RN 08/24/2024 Telephone Orthopedic Surgery [place] [address] [phone] Lesli Perkins, MAYO PREOP REVIEW 07/10/2024 Telephone Orthopedic [place] [address] [phone] Melody Nickerson MA Surgery 07/05/2024 9:00 AM EST Office Visit Orthopedic [place] [address] [phone] Gregg Lau MD Primary osteoarthritis of right knee (Primary Dx) 06/14/2024 9:30 AM EST Consult Orthopedic Surgery [place] [address] [phone] Patsy Whitaker NP Primary osteoarthritis of right [...] 09/05/2024 1:00 PM EDT Consult Orthopedic Surgery [place] [address] [phone] Patsy Whitaker NP [address] [address] 09/18/2024 7:30 AM EDT Hospital Encounter [facility] Main OR [address] [place] [phone] Gregg Lau MD [address] [address] 09/18/2024 7:30 AM EDT - 09/18/2024 10:00 AM EDT Surgery [facility] Main OR [address] [place] [phone] Gregg Lau MD [address] [address] RIGHT TOTAL KNEE ARTHROPLASTY [[id number] (CPT??)] 10/03/2024 11:30 AM EDT Office Visit Orthopedic Surgery [place] [address] [phone] Gregg Lau MD [address] [address] Scheduled Procedures Name Priority Associated Diagnoses Date/Ti [...] age to complete this topic Meningococcal B Vaccine Aged Out No l onger eligible based on patient's age to complete [...] Right knee pain Views: AP, Lateral, Leal, [place] right knee Findings: On AP view there is severe narrowing through the medial compartment of the right knee with rcdz-[id number]-wrpi articulation, subchondral sclerosis and marginal osteophytes. ??On lateral view there is evidence of moderate osteophytes at the superior and inferior patella. ??Moderate degenerative changes through the patellofemoral compartment as well. ??No acute findings. Impression: Severe osteoarthritis right knee Patsy Whitaker CORRECTIONAL MAINTENANCE TECHNICIAN IMG XR PROCEDURES Final Result * [place] [...] ??Pre-procedure timeout performed: yes ?? Patsy Whitaker NP IN CLINIC/BEDSIDE ORDER GOLDEN Final Result from Last 3 Months Insurance [place] Care Teams Residential Real Estate Agent Relationship Specialty Start Date End Date Faith Elizondo MD [address] [place] [address] PCP - General Internal Medicine 06/14/24
--- OUTSIDE RECORDS SUMMARY | 2024-09-04 09:14 | XMS_ITS | Encounter Summary ---
Author Organization [facility] Address [address] [place] [address] Care Team Providers Care Numerical Control Tool Programmer Name Role Phone Faith Elizondo MD Primary Care Provider [phone] Reason for Visit * Reason Onset Date Comments Labs and PROM 09/03/2024 Encounter Details Date Type Department Care Team (Late st Contact Info) Description 09/03/2024 Telephone Orthopedic Surgery [facility] [address] [phone] Lesli Perkins RN Labs and PROM Social History Tobacco Use Types Packs/Day Years [...] Progress Notes * Lesli Perkins RN - 09/03/2024 9:45 AM EDT This nurse reviewed preop clearance note from PCP to Melody's fax, CBC missing. A1C noted to be 6.2 in preop clearance note. CBC ordered and left message for daughter requesting that these labs be drawn at any [facility] locations and looking for a call back to complete PROM questions. documented in this encounter Plan of Treatment Upcoming Encounters Date Type Department Care Team (Latest Contact Info) Description 09/05/2024 1:00 PM EDT Consult Orthopedic Surgery [facility] [address] [phone] Patsy Whitaker NP [address] [address] 09/18/2024 7:30 AM EDT Hospital Encounter [facility] Main OR [address] [place] [phone] Gregg Lau MD [address] [address] 09/18/2024 7:30 AM EDT - 09/18/2024 10:[address] [facility] OR [address] [place] [phone] Gregg Lau MD [address] [address] RIGHT TOTAL KNEE ARTHROPLASTY [[id number] (CPT??)] 10/03/2024 11:30 AM EDT Office Visit Orthopedic Surgery - [place] [address] [phone] Gregg Lau MD [address] [address] Scheduled Procedures Name Priority Associated Diagnoses Date/Ti me ARTHROPLASTY KNEE TOTAL Primary osteoarthritis of right knee 09/18/2024 7:30 AM EDT documented as of this encounter Visit Diagnoses Not on filedocumented in this encounter Care Teams Numerical Control Tool Programmer Relationship Specialty Start Date End Date Faith Elizondo MD [address] [place] [phone] PCP - General Internal Medicine 06/14/24 documented as of this encounter
--- OUTSIDE RECORDS SUMMARY | 2024-09-04 09:14 | XMS_ITS | Encounter Summary ---
Author Organization [facility] Address [address] [place] [phone] Care Team Providers Care Grove Superintendent Name Role Phone Faith Elizondo MD Primary Care Provider [phone] Reason for Visit * Reason Onset Date Comments Cardiac Clearance 09/03/2024 Encounter Details Date Type Department Care Team (Late st Contact Info) Description 09/03/2024 Telephone Orthopedic Surgery [facility] [address] [phone] Lesli Perkins RN Cardiac Clearance Social History Tobacco Use Types Packs/Day Years [...] Notes * Lesli Perkins RN - 09/03/2024 11:54 AM EDT This nurse called [facility] looking for preop clearance to be faxed to [facility] fax. documented in this encounter Plan of Treatment Upcoming Encounters Date Type Department Care Team (Latest Contact Info) Description 09/05/2024 1:00 PM EDT Consult Orthopedic Surgery [facility] [address] [phone] Patsy Whitaker NP [address] [address] 09/18/2024 7:30 AM EDT Hospital Encounter [facility] Main OR [address] [place] [phone] Gregg Lau MD [address] [address] 09/18/2024 7:30 AM EDT - 09/18/2024 10:00 AM EDT Surgery [facility] Main OR [address] [place] [phone] Gregg Lau MD [address] [address] RIGHT TOTAL KNEE ARTHROPLASTY [76561 (CPT??)] 10/03/2024 11:30 AM EDT Office Visit Orthopedic Surgery - [place] [address] [phone] Gregg Lau MD [address] [address] Scheduled Procedures Name Priority Associated Diagnoses Date/Ti me ARTHROPLASTY KNEE TOTAL Primary osteoarthritis of right knee 09/18/2024 7:30 AM EDT documented as of this encounter Visit Diagnoses Not on filedocumented in this encounter Care Teams Grove Superintendent Relationship Specialty Start Date End Date Faith Elizondo MD [address] [place] [phone] PCP - General Internal Medicine 06/14/24 documented as of this encounter
--- OUTSIDE RECORDS SUMMARY | 2024-09-04 09:14 | XMS_ITS | Encounter Summary ---
Author Organization [facility] Address [address] [place] [address] Care Team Providers Care Business Support Professional Name Role Phone Faith Elizondo MD Primary Care Provider [phone] Encounter Details Date Type Department Care Team (Late st Contact Info) Description 08/31/2024 Telephone Orthopedic Surgery [place] [address] [phone] Lesli Perkins, RN Social History Tobacco Use Types Packs/Day Years [...] on file documented as of this encounter Plan of Treatment Upcoming Encounters Date Type Department Care Team (Latest Contact Info) Description 09/05/2024 1:00 PM EDT Consult Orthopedic Surgery [facility] [address] [phone] Patsy Whitaker NP [address] [address] 09/18/2024 7:30 AM EDT Hospital Encounter [facility] Main OR [address] [place] [phone] Gregg Lau MD [address] [address] 09/18/2024 7:30 AM EDT - 09/18/2024 10:00 AM EDT Surgery [facility] Main OR [address] [place] [phone] Gregg Lau MD [address] [address] RIGHT TOTAL KNEE ARTHROPLASTY [[id number] (CPT??)] 10/03/2024 11:30 AM EDT Office Visit Orthopedic Surgery - [place] [address] [phone] Gregg Lau MD [address] [address] Scheduled Procedures Name Priority Associated Diagnoses Date/Ti me ARTHROPLASTY KNEE TOTAL Primary osteoarthritis of right knee 09/18/2024 7:30 AM EDT documented as of this encounter Visit Diagnoses Not on filedocumented in this encounter Care Teams Business Support Professional Relationship Specialty Start Date End Date Faith Elizondo MD [address] [place] [address] PCP - General Internal Medicine 06/14/24 documented as of this encounter
== END ==
LOC: HO.CARD 08:45
PROVIDERS: PCP Internal Medicine; Visit Provider Nurse Practitioner Family
DX: I42.9 Cardiomyopathy, unspecified (principal); I48.19 Other persistent atrial fibrillation
CPT/HCPCS: 78452; 93017; A9500; J0280; J2785

== ENCOUNTER → 2024-09-04 08:48 | Outpatient (BNV) | payer MEDICARE, MEDICAID, SELFPAY | PROVIDERS: PCP Internal Medicine | DX: I49.3 Ventricular premature depolarization (principal) | CPT/HCPCS: 78452; 93016; 93018 ==

== ENCOUNTER 2025-02-14 08:20 | Outpatient (AMB) | payer MEDICARE, MEDICAID, SELFPAY ==
--- NOTE | 2025-02-14 08:30 | MHC.OFFVIS ---
Vital Signs 02/14/25 08:32 Height 5 ft 4 in Weight 152 lb 1.903 oz BMI 26.1 BP 110/64 Blood Pressure Location Lt brachial Position Sitting Pulse 59 Pulse Source Monitor Intake Visit Reasons: 6m follow up Intake Note: 6 mth f/up Teachers Assistant Required: Yes Teachers Assistant Services: Teachers Assistant Offered & Declined Teachers Assistant Name: daughter Accompanied by: Daughter Allergies No Known Allergies Allergy (Verified 08/30/24 10:24) Medication List - Last Reconciled 02/14/25 by Donna Dominguez NP-C apixaban (Eliquis) 5 mg PO BID clotrimazole 1% 1 appl topical BID digoxin 125 mcg orally 6 days a week; Reduced - ( may not need refill yet) irbesartan 300 mg PO DAILY ketoconazole 2% 1 appl topical DAILY metoprolol succinate ER 75 mg (1.5 x 50 mg) PO BID pravastatin 40 mg PO DAILY sertraline 50 mg PO DAILY triamcinolone acetonide 0.1% 1 appl topical DAILY triamterene-hydrochlorothiazid 37.5-25 mg 1 tab PO DAILY valacyclovir (Valtrex) 2,000 mg (2 x 1 gram) PO BID HPI HPI 6m follow up: Details: Fox is a 79-year-old female past medical history of hypertension, hyperlipidemia, atrial fibrillation, mild cardiomyopathy who presents for follow-up. Today she reports that she underwent a right total knee replacement in September 2024. Her recovery has been very good and she is now walking routinely and doing her exercises. She just finished her physical therapy. She is very happy with the way she is feeling. She has no heart palpitations, no lightheadedness. No chest discomfort at rest or with activity. No shortness of breath, PND, orthopnea or edema. She is taking all meds as directed. No bleeding issues reported. Daughter is present. [facility] Medical History Sinusitis Rash Annual physical exam Anxiety Osteoarthritis Endometrial ca Thyroid nodule Chronic insomnia Hyperlipidemia HTN (hypertension) Surgical History H/O colonoscopy S/P GUSTAVO-BSO No pertinent past surgical history Family History Father No problems noted. Mother No problems noted. Social History Housing: House Alcohol intake: never Patient Tobacco Use Status: Never used Tobacco e-Cigarette/Vaping Use: Never Used service: No Current occupational status: retired Cognitive needs: No Hearing needs: No Vision needs: Yes Review of Systems Const All systems reviewed & are unremarkable except as noted in HPI and below Denies chills, Denies fatigue, Denies fever(s), Denies frequent falls, Denies weakness, Denies weight gain and Denies weight loss ENT Denies dizziness Card Denies chest pain, Denies leg edema, Denies lightheadedness, Denies palpitations, Denies dyspnea and Denies dyspnea on exertion Resp Denies cough, Denies dyspnea and Denies dyspnea on exertion GI Denies hematochezia Musc Denies abnormal gait, Denies muscle weakness, Denies numbness, Denies radiating pain into limb and Denies tingling Neuro Denies abnormal gait, Denies dizziness, Denies frequent falls, Denies numbness, Denies tingling and Denies weakness Endo Denies fatigue and Denies palpitations Physical Exam Vital Signs: Last Vital Signs Pulse 59 02/14/25 08:32 BP 110/64 02/14/25 08:32 BMI result Body Mass Index 26.1 Const General: cooperative, healthy appearing, comfortable and no acute distress Orientation/consciousness: patient oriented x3 Neck Neck: Yes normal visual inspection Resp Effort & Inspection: normal respiratory effort Auscultation: clear to auscultation bilaterally, no crackles, no rales, no rhonchi and no wheezes Cardio Jugular venous distension: no JVD Rate: regular rate Rhythm: regular rhythm Heart sounds: S1 normal heart sound present, S2 normal heart sound present, no murmurs and no rubs Neuro General: patient oriented x3 Extrem General: Yes normal to inspection and No no pedal edema Psych Appearance: grossly normal Mental Status: mental status grossly normal Speech and movement: Normal speech and movement present Office Procedures EKG Details: Today read by me, atrial fibrillation with slow ventricular response, rate 59, QTC 392 milliseconds [id number], Complete Assessment & Plan Assessment & Plan (1) A-fib: Comment: with RVR , ECHO 05/20 reduced EF 49%, improved ejection fraction to 60% 03/21 Code(s): I48.91 - Unspecified atrial fibrillation Category: Medical Qualifiers: Atrial fibrillation type: longstanding persistent Qualified Code(s): I48.11 - Longstanding persistent atrial fibrillation Plan: Persistent atrial fibrillation, treated with heart rate control. Currently on metoprolol and digoxin. An echocardiogram was done 03/29/2023 showing EF 55-60%, no valve abnormalities. 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 Holter monitor done 07/25/2023 for 3 days shows atrial fibrillation with average heart rate 79, no pauses greater than 3 seconds, rare PVCs. Labs done 04/30/2024 showed Digoxin level 0.7, labs 09/18/2024 shows creatinine 0.74. EKG today shows atrial fibrillation, rate 59. No medication changes made. Will order digoxin level. Cardiology follow-up in 6 months, sooner if needed. (2) Cardiomyopathy: Comment: Echo 06/21 EF 49%, global hypokinesis, nl valves, repeat Echo 03/21 EF 60%, nl valves Code(s): I42.9 - Cardiomyopathy, unspecified Category: Medical Plan: EF previously mildly reduced. Thought to be related to AFib with uncontrolled rates. Now on better rate control and EF has normalized. Continue metoprolol XL and irbesartan. (3) HTN (hypertension): Code(s): I10 - Essential (primary) hypertension Category: Medical Plan: Blood pressure goal less than 130/80. Blood pressure well controlled today. Continue metoprolol, irbesartan and triamterene/hydrochlorothiazide. Plan Time spent on chart review, documentation, interview and assessment Orders: Orders Digoxin Today I48.19 - Other persistent atrial fibrillation Coding Level of Care Code Est Pt Level 4 (39549) Complex EM visit Add On G2211 Diagnoses Longstanding persistent atrial fibrillation I48.11 Atrial fibrillation type: longstanding persistent Cardiomyopathy I42.9 HTN (hypertension) I10 CPT Codes EKG - CPT: 18511-[id number], Complete ([id number]) Time Spent (min) 30
[2025-02-14 08:32] VITALS: BP 110/64; PULSE 59; BMI 26.1
--- OUTSIDE RECORDS SUMMARY | 2025-02-14 09:18 | XMS_ITS | Clinical Summary ---
Author Organization [address] [facility] Address [address] [place] [address] Phone Care Team Providers Care Gasser Machine Operator Name Role Phone Faith Elizondo MD Primary Care Provider [phone] Allergies No known active allergies Medications pravastatin (PRAVACHOL) 40 mg tablet Take 1 tablet (40 mg total) by mouth 1 (one) time each day. 02/17/2012 Active sertraline (ZOLOFT) 50 mg tablet Take 1 tablet (50 mg total) by mouth 1 (one) time each day. Active digoxin (LANOXIN) 125 mcg (0.125 mg) tablet Take 1 tablet (125 mcg total) by mouth 1 (one) time each day. Every day skip on tuesday Active irbesartan (AVAPRO) 300 mg tablet Take 1 tablet (300 mg total) by mouth 1 (one) time each day. 09/13/2024 Active metoprolol succinate (TOPROL-XL) 50 mg 24 hr tablet Take 1.5 tablets (75 mg total) by mouth 2 (two) times a day. 08/25/2024 Active triamterene-hydr oCHLOROthiazide (MAXZIDE-25) 37.5-25 mg per tablet Take 25 mg by mouth 1 (one) time each day. 09/13/2024 Active apixaban (ELIQUIS) 2.5 mg tablet Take 1 tablet (2.5 mg total) by mouth 2 (two) times a day for 27 doses. 27 each 10/02/2024 Active acetaminophen (TYLENOL) 500 mg tablet Take 2 tablets (1,000 mg total) by mouth 3 (three) times a day. 90 tablet 10/02/2024 Active ondansetron (ZOFRAN) 8 mg tablet Take 1 tablet (8 mg total) by mouth every 8 (eight) hours if needed for nausea or vomiting. 20 tablet 10/02/2024 Active traMADoL (ULTRAM) 50 mg tabletIndication s:Status post total right knee replacement Take 1 tablet (50 mg total) by mouth every 6 (six) hours if needed for severe pain. Max Daily Amount: 200 mg 28 tablet 12/19/2024 Active Active Problems Problem Noted Date Diagnosed Date Status post total knee replacement 10/01/2024 Primary osteoarthritis of right knee 07/05/2024 S/P GUSTAVO-BSO 07/05/2024 Insomnia 07/05/2024 Anxiety 07/05/2024 Hypertension 06/14/2024 Hyperlipidemia 06/14/2024 Atrial fibrillation ([facility] V24, [facility] V28) 0 06/14/2024 Encounters Date Type Department Care Team Description 12/19/2024 8:00 AM EDT Office Visit Orthopedic Surgery [facility] [address] [phone] Gregg Lau MD Status post total right knee replacement (Primary Dx); Follow-up exam 11/14/2024 8:30 AM EDT Office Visit Orthopedic [address] [phone] Patsy Whitaker NP Status post total right knee replacement (Primary Dx) from Last 3 Months Surgical History Surgery Date Site/Laterality Comments TOTAL ABDOMINAL HYSTERECTOMY W/ BILATERAL SALPINGOOPHORECTOMY HYSTERECTOMY Medical History Medical History Date Comments Essential hypertension DX:Essent ial hypertension Hyperlipidemia DX:Hyperlipidemi a A-fib ([facility] V24, [facility] V28) OA (osteoarthritis) Insomnia Anxiety Social History Tobacco Use Types Packs/Day Years Used Date Smoking Tobacco: Never Smokeless Tobacco: Never Alcohol Use Standard Drinks/Week Comments Never 0 (1 standard drink = 0.6 oz pur e alcohol) Interpersonal Safety Answer Date Record ed Physical Abuse 10/01/2024 Verbal Abuse 10/01/2024 Comments Unknown Sex and Gender Information Value Date Recorded Sex Assigned at Not on file Legal Sex Female 10:36 PM EST Gender Identity Not on file Sexual Orientation Not on file Obstetrics History Last Filed Vital Signs Vital Sign Reading Time Taken Comments Blood Pressure 136/72 10/02/2024 7:53 AM EDT Pulse 80 10/02/2024 7:53 AM EDT Temperature 36.5 C (97.7 F) 10/02/2024 7:53 AM EDT Respiratory Rate 18 10/02/2024 7:53 AM EDT Oxygen Saturation 100% 10/02/2024 7:53 AM EDT Inhaled Oxygen Concentration - - Weight 70.8 kg (156 lb) 11/14/2024 8:30 AM EDT Height 157.5 cm (5' 2.01 ) 11/14/2024 8:30 AM ED T Body Mass Index 28.53 11/14/2024 8:30 AM EDT Plan of Treatment Upcoming Encounters Date Type Department Care Team (Late st Contact Info) Description 09/19/2025 8:30 AM EDT Office Visit Orthopedic Surgery - [place] [id number] [phone] Gregg Lau MD [address] [address] Health Maintenance Due Date Last Done Comments Zoster Vaccines (1 of 2) 1996 RSV Immunization Adult Patients (1 - 1-dose 75+ series) 2021 DTaP,Tdap,and Td Vaccines (2 - Td or Tdap) 10/07/2021 10/08/2011 Cholesterol Screening (Lipid Panel) 05/09/2022 Hepatitis C Screening 05/09/2022 Medicare Annual Wellness Visit 05/09/2022 Osteoporosis Screening (Bone Density Screening) 05/09/2022 Social Influencers of Health Screening 05/09/2022 Depression Screening 05/30/2024 COVID-19 Vaccine ( season) 2025 06/29/2021, 10/22/2020, 10/01/2020 Influenza Vaccine (#1) 2025 2, 04/10/2021, 04/18/2020, Additional history exists Falls Risk Assessment 10/02/2025 10/02/2024 Hypertension/CHF/CAD Annual BMP Blood Test 10/02/2025 10/02/2024, 09/18/2024 Pneumococcal Vaccine: 50+ Years Completed 08/30/2024, 02/10/2016, 02/17/2012 HIB Vaccines Aged Out No [...] on patient's age to complete this topic Medical Devices Implanted Type Area Kersey Department Supervisor Device Identifier Shelf Expiration Date Model / Serial / Lot Cement Bone Surg Simplex Radiopq - Sn/A - [id number] Implanted:Qty: 2 on 10/01/2024 by Gregg Lau MD at [facility] Bone Cement Right: Knee [employer] 01/27/2027 [id number] / N/A / [id number] Stem Extension Tapered Cemented [id number] - Sn /A - [id number] Implanted:Qty: 1 on 10/01/2024 by Gregg Lau MD at [facility] Joints Knee Right: Knee [employer] [id number] 08/12/2034 [id number] / N /A / [id number] Knee Psn Tib Vice President Of Advertising Stm 5 Deg Sz Fr - Sn/A - [id number] Implanted:Qty: 1 on 10/01/2024 by Gregg Lau MD at [facility] Joints Knee Right: Knee [employer] [id number] 03/22/2034 [id number] / N/A / [id number] Knee Psn Fem Ps Cmt Ccr Nrw Sz9 R - Sn/A - [id number] Implanted:Qty: 1 on 10/01/2024 by Gregg Lau MD at [facility] Joints Knee Right: Knee [employer] [id number] 04/03/2034 [id number] / N/A / [id number] All Poly Patella 35mm - Sn/A - [id number] Implanted:Qty: 1 on 10/01/2024 by Gregg Lau MD at [facility] Joints Knee Right: Knee [employer] [id number] 03/26/2029 [id number] / N/A / [id number] Knee Psn Asf Mlc 14mm Rt 6-9 Ef - Sn/A - [id number] Implanted:Qty: 1 on 10/01/2024 by Gregg Lau MD at [facility] Joints Knee Right: Knee [employer] [id number] 12/13/2028 [id number] / N/A / [id number] Fortune Cm Fm/Cm Tb/Cps/Ve Psn Pt Implanted:Qty: 1 on 10/01/2024 by Gregg Lau MD at [facility] Right: Knee [employer] [id number] / N/A / N/A Procedures Procedure Name Priority Date/Time Associated Diagnosis Comments XR KNEE 3 VIEWS RIGHT Routine 12/19/2024 8:14 AM EDT Follow-up exam Status post total right knee replacement BASIC METABOLIC PANEL Routine 10/02/2024 8:04 AM EDT from Last 3 Months or Most Recently Relevant to Health Maintenance Results * XR Knee 3 Views Right (12/19/2024 8:14 AM EDT) Anatomical Region Laterality Modality Lower Extremities, Knee Right Computed Radiography Narrative 12/21/2024 10:58 AM EDT 3 views of the right knee obtained today including AP, lateral, sunrise were reviewed. These show right cemented posterior stabilized total knee replacement with patellar resurfacing and short cemented tibial stem. Implants appear well-fixed and well-positioned. Small 1 mm radiolucency underlying medial tibial tray. Patella tracking centrally. us Gregg Lau MD IMG XR PROCEDURES Fin al Result * (ABNORMAL) Basic metabolic panel (10/02/2024 8:04 AM EDT) Sodium 136 133 - 145 mmol/L LAB CHEMISTRY METHOD 10/02/2024 8:44 AM [facility] Potassium 3.9 3.5 - 5.5 mmol/L LAB CHEMISTRY METHOD 10/02/2024 8:44 AM [facility] Chloride 104 96 - 110 mmol/L LAB CHEMISTRY METHOD 10/02/2024 8:44 AM [facility] CO2 25 21 - 32 mmol/L LAB CHEMISTRY METHOD 10/02/2024 8:44 AM [facility] Anion Gap 7 3 - 11 LAB CHEMISTRY METHOD 10/02/2024 8:44 AM [facility] Glucose 120(H) 70 - 100 mg/dL LAB CHEMISTRY METHOD 10/02/2024 8:44 AM [facility] BUN 19 5 - 25 mg/dL LAB CHEMISTRY METHOD 10/02/2024 8:44 AM [facility] Creatinine 0.73 0.50 - 1.10 mg/dL LAB CHEMISTRY METHOD 10/02/2024 8:44 AM [facility] eGFR 84 >=60 mL/min/1. 73m2 LAB CHEMISTRY METHOD 10/02/2024 8:44 AM [facility] Comment:Calculation based on the Chronic Kidney Disease Epidemiology Collaboration (CKD-EPI) equation refit without adjustment for race. BUN/Creatinine Ratio 26.0 LAB CHEMISTRY METHOD 10/02/2024 8:44 AM [facility] Calcium 8.5 8.5 - 10.5 mg/dL LAB CHEMISTRY METHOD 10/02/2024 8:44 AM EDT [facility] Blood Venous blood specimen / Unknown Venipuncture / Unknown 10/02/2024 8:04 AM EDT 10/02/2024 8:08 AM EDT us Patsy Whitaker RETURN AGENT LAB BLOOD ORDERABLES Fi nal Result [facility] [address] [place] [address], from Last 3 Months or Most Recently Relevant to Health Maintenance Insurance MEDICAID - [place] MEDICARE Advance Directives Documents on File Type Date Recorded Patient Photographic Reproduction Technician Expl anation Power of Teacher Vocational Training 09/07/2024 4:31 PM [facility] * Full Code - Default (Latest Code Status on File) Date Activated Date Inactivated Comments 10/01/2024 8:37 AM 10/02/2024 2:54 PM This is order is used when code status has not been discussed with the patient, or code status is otherwise unknown/unconfirmed To update the patient's code status, place a code status order. Do not modify or discontinue any currently active code status orders. Care Teams Gasser Machine Operator Relationship Specialty Start Date End Date Faith Elizondo MD [address] [place] [phone] PCP - General Internal Medicine 09/28/24
== END 2025-02-14 08:58 | disposition home or self-care (01) ==
LOC: HO.HCS 08:21
PROVIDERS: PCP Internal Medicine; Visit Provider Nurse Practitioner Family
DX: I48.11 Longstanding persistent atrial fibrillation (principal); I42.9 Cardiomyopathy, unspecified; I10 Essential (primary) hypertension
CPT/HCPCS: 93010; 99214; G2211

== ENCOUNTER 2025-02-14 08:20 | Outpatient (REF) | payer MEDICARE, MEDICAID, SELFPAY ==
[2025-02-14 09:38] LABS: MANUAL DIFF FLAG NO
[2025-02-14 09:56] LABS: Hematocrit 37.0 % (37.0-47.0); Hemoglobin 11.8 g/dl (12.0-16.0); Imm Gran Abs Auto 0.13 X10*3/uL (0.00-0.03); Imm Gran Pct Auto 1.3 % (0.0-0.4); Lymphocytes Absolute Auto 2.0 X10*3/uL (1.2-4.9); Mean Corpuscular HGB Conc 31.9 g/dl (31.0-35.0); Mean Corpuscular Hemoglobin 28.0 pg (27.0-33.0); Mean Corpuscular Volume 87.7 fL (80.0-98.0); NRBC Abs Auto 0.000 X10*3/uL (0.0-0.012); NRBC Pct Auto 0.0 /100WBC (0.0-0.2); Platelet Count 265 X10*3/uL (160-400); Red Blood Count 4.22 X10*6/uL (4.20-5.50); White Blood Count 9.7 X10*3/uL (4.8-10.8)
[2025-02-14 10:41] LABS: Alanine Aminotransferase 30 U/L (0-31); Albumin Level 4.2 g/dL (3.5-5.0); Alkaline Phosphatase 72 U/L (39-117); Anion Gap 10 (12-20); Aspartate Amino Transferase 33 U/L (5-31); Blood Urea Nitrogen 10 mg/dL (9-16); Calcium 9.2 mg/dL (8.4-10.2); Carbon Dioxide 28 mmol/L (22-29); Chloride 105 mmol/L (96-108); Cholesterol 151 mg/dL (<200); Estimated Glomerular Filt Rate > 60; HDL Cholesterol 37 mg/dL (>40); Potassium 4.1 mmol/L (3.3-5.1); Sodium 139 mmol/L (135-145); Total Protein 7.7 g/dL (6.5-8.0); Triglycerides 148 mg/dL (<150)
== END 2025-02-14 08:21 | disposition home or self-care (01) ==
LOC: HO.LAB 08:20
PROVIDERS: Absent Provider Internal Medicine; PCP Internal Medicine; Visit Provider Nurse Practitioner Family
DX: I48.11 Longstanding persistent atrial fibrillation (principal); I11.9 Hypertensive heart disease without heart failure; I42.9 Cardiomyopathy, unspecified; E55.9 Vitamin D deficiency, unspecified; E78.5 Hyperlipidemia, unspecified; Z13.1 Encounter for screening for diabetes mellitus; Z79.01 Long term (current) use of anticoagulants
CPT/HCPCS: 36415; 80053; 80061; 82306; 83036; 85025; 93005; 99212

== ENCOUNTER 2025-02-18 13:00 | Outpatient (AMB) | payer MEDICARE, MEDICAID, SELFPAY ==
[2025-02-18 13:12] VITALS: BP 124/72; PULSE 92; RESP 18; O2SAT 98; BMI 25.9
--- NOTE | 2025-02-18 13:12 | A.OFFPC_ITS ---
Vital Signs 02/18/25 13:12 Height 5 ft 4 in Weight 151 lb BMI 25.9 BP 124/72 Blood Pressure Location Lt brachial Position Sitting Respiration 18 Pulse 92 Pulse Source Pulse Oximeter Pulse Oximetry (%) 98 Oxygen Delivery Method Room Air Intake Visit Reasons: 6 months f/up Intake Note: Pt is here today for 6 months follow up visit. Allergies No Known Allergies Allergy (Verified 02/18/25 13:15) Medication List - Last Reconciled 02/18/25 by Faith Elizondo MD apixaban (Eliquis) 5 mg PO BID clotrimazole 1% 1 appl topical BID digoxin 125 mcg orally 6 days a week; Reduced - ( may not need refill yet) irbesartan 300 mg PO DAILY ketoconazole 2% 1 appl topical DAILY metoprolol succinate ER 75 mg (1.5 x 50 mg) PO BID pravastatin 40 mg PO DAILY sertraline 50 mg PO DAILY triamcinolone acetonide 0.1% 1 appl topical DAILY triamterene-hydrochlorothiazid 37.5-25 mg 1 tab PO DAILY valacyclovir (Valtrex) 2,000 mg (2 x 1 gram) PO BID Tobacco use date assessed: 02/18/25 Last assessed Fall Risk: 02/18/25 Dental Screening Dental Screen Date: 08/30/24 HPI 6 months f/up HPI Details Patient presents for the follow-up of type 2 diabetes hypertension hyperlipidemia chronic AFib, stable on current medications. patient complains of left shoulder pain on and off for 6 months started after patient fell down. She reports difficulty lifting and using her left arm. She denies pain at night, weakness or numbness in the left upper extremity. [facility] Medical History (Updated 02/18/25 @ 13:48 by Faith Elizondo MD) Sinusitis Rash Annual physical exam Anxiety Osteoarthritis Endometrial ca Thyroid nodule Chronic insomnia Hyperlipidemia HTN (hypertension) Surgical History (Updated 02/18/25 @ 13:29 by Megha Park [facility]) Hx of total knee replacement H/O colonoscopy S/P GUSTAVO-BSO No pertinent past surgical history Family History Father No problems noted. Mother No problems noted. Social History Housing: House Alcohol intake: never Patient Tobacco Use Status: Never used Tobacco e-Cigarette/Vaping Use: Never Used service: No Current occupational status: retired Cognitive needs: No Hearing needs: No Vision needs: Yes Questionnaire PHQ-9 Over the last 2 weeks, how often have you been bothered by any of the following problems? 1. Little interest or pleasure in doing things: not at all 2. Feeling down, depressed, or hopeless: not at all 3. Trouble falling or staying asleep, or sleeping too much: not at all 4. Feeling tired or having little energy: not at all 5. Poor appetite or overeating: not at all 6. Feeling bad about yourself - or that you are a failure or have let yourself or your family down: not at all 7. Trouble concentrating on things, such as reading the newspaper or watching television: not at all 8. Moving or speaking so slowly that other people could have noticed. Or the opposite - being so fidgety or restless that you have been moving around a lot more than usual: not at all 9. Thoughts that you would be better off or of hurting yourself in some way: not at all Total score: 0 Depression Screening Interpretation: Negative Depression Screening Done: Yes Source: Developed by Elma Olguin Kurt Kroenke and colleagues, with an educational piter from [employer]. Thrive Questionnaire Date Thrive assessed: 08/13/24 MADIE-7 AMB Questionnaire MADIE-7 Date MADIE - 7 assessed: 08/13/24 Source: Developed by Elma Olguin Kurt Kroenke and colleagues, with an educational piter from [employer]. Review of Systems Const All systems reviewed & are unremarkable except as noted in HPI and below Eyes Reports no additional complaints ENT Reports no additional complaints Card Reports no additional complaints Resp Reports no additional complaints GI Reports no additional complaints Reports no additional complaints Physical exam (Primary Care) Vital Signs: Last Vital Signs Pulse 92 02/18/25 13:12 Resp 18 02/18/25 13:12 BP 124/72 02/18/25 13:12 Pulse Ox 98 02/18/25 13:12 Oxygen Delivery Method Room Air 02/18/25 13:12 BMI result Body Mass Index 25.9 Tobacco/Smoking Status: Tobacco use Status Tobacco use date assessed 02/18/25 02/18/25 13:15 Patient Tobacco Use Status Never used Tobacco 02/18/25 13:15 e-Cigarette/Vaping Use Never Used 02/18/25 13:12 PHQ-9: PHQ-9 Score PHQ-9: Total score 0 02/18/25 13:31 Depression Screening Interpretation: Negative Thrive Assessment: Date of Thrive Assessment Date Thrive assessed 08/13/24 02/18/25 13:12 Const General: no acute distress HENMT Face and sinus: Yes normal facial exam Neck Neck: Yes supple Resp Effort & Inspection: normal respiratory effort Auscultation: clear to auscultation bilaterally Cardio Rhythm: regular rhythm Heart sounds: S1 normal heart sound present and S2 normal heart sound present GI Inspection: Yes normal to inspection Palpation (GI): Soft to palpation Percussion: Yes normal to percussion Auscultation: normal bowel sounds Extrem Other: There is a decreased range of motion and anteriolateral aspect tenderness in left shoulder no soft tissue swelling, status post right knee arthroplasty 2+ pitting edema no erythema Coding Level of Care Code Est Pt Level 4 (13583) Diagnoses Persistent atrial fibrillation I48.19 Left shoulder pain M25.512 HTN (hypertension) I10 Hyperlipidemia E78.5 Hyperglycemia R73.9 Assessment & Plan Assessment & Plan (1) Persistent atrial fibrillation: Code(s): I48.19 - Other persistent atrial fibrillation Category: Medical Plan: Continue current medications obtain 3 day Holter to assess rate control (2) Left shoulder pain: Code(s): M25.512 - Pain in left shoulder Category: Medical Plan: Check x-rays and referred to physical therapy (3) HTN (hypertension): Code(s): I10 - Essential (primary) hypertension Category: Medical Plan: Continue current medications (4) Hyperlipidemia: Code(s): E78.5 - Hyperlipidemia, unspecified Category: Medical Plan: Continue statin (5) Hyperglycemia: Comment: A1C 6.2 08/2024 Code(s): R73.9 - Hyperglycemia, unspecified Category: Medical Plan: A1c is 6.0 continue ADA diet follow-up in 6 months with a fasting labs before Orders: Orders XR shoulder LT min 2V Today M25.512 - Pain in left shoulder ECG 3 day holter monitor Today I48.19 - Other persistent atrial fibrillation PT Evaluation and Treatment Today M25.512 - Pain in left shoulder Hemoglobin A1c 6 Months E78.5 - Hyperlipidemia, unspecified, I10 - Essential (primary) hypertension, R73.9 - Hyperglycemia, unspecified Comprehensive [place]. Panel Fast 6 Months E78.5 - Hyperlipidemia, unspecified, I10 - Essential (primary) hypertension, R73.9 - Hyperglycemia, unspecified TSH reflex Free T4 6 Months E78.5 - Hyperlipidemia, unspecified, I10 - Essential (primary) hypertension, R73.9 - Hyperglycemia, unspecified Vitamin D 25-OH Total 6 Months E78.5 - Hyperlipidemia, unspecified, I10 - Essential (primary) hypertension, R73.9 - Hyperglycemia, unspecified Lipid Panel 6 Months E78.5 - Hyperlipidemia, unspecified, I10 - Essential (primary) hypertension, R73.9 - Hyperglycemia, unspecified Microalbumin, Random (w Creat) 6 Months E78.5 - Hyperlipidemia, unspecified, I10 - Essential (primary) hypertension, R73.9 - Hyperglycemia, unspecified Medications: New loratadine (Claritin) 10 mg PO DAILY 90 tabs 0RF Changed From digoxin 125 mcg orally 6 days a week; Reduced - ( may not need refill yet) 78 tabs 3RF To digoxin 125 mcg PO .qd 90 tabs 3RF Refilled clotrimazole 1% 1 appl topical BID 45 grams 1RF
== END 2025-02-18 13:55 | disposition home or self-care (01) ==
LOC: HO.HMCC 13:00
PROVIDERS: PCP Internal Medicine; Visit Provider Internal Medicine
DX: I48.19 Other persistent atrial fibrillation (principal); M25.512 Pain in left shoulder; I10 Essential (primary) hypertension; E78.5 Hyperlipidemia, unspecified; R73.9 Hyperglycemia, unspecified

== ENCOUNTER 2025-02-18 13:00 | Outpatient (REF) | payer MEDICARE, MEDICAID, SELFPAY ==
--- NOTE | ~2025-02-18 | XR_ITS ---
EXAMINATION: XR SHOULDER, LEFT CLINICAL INFORMATION: M25.512 - Pain in left shoulder COMPARISON: None available. TECHNIQUE: Three views of the left shoulder. FINDINGS: Normal bone mineralization. No fracture, dislocation, or suspicious bone lesion. Normal alignment. The glenohumeral joint demonstrates mild degenerative arthritis. The AC joint demonstrates mild superior surface spurring. There is a type II acromion. No undersurface spurring. The subacromial space is preserved. Remainder of the soft tissue and bony structures appear normal. XR/XR shoulder LT min 2V IMPRESSION: 1. No acute bony abnormalities. 2. 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 Electronically signed by: Nicolás Decker MD 02/18/2025 02:37 PM EDT
== END 2025-02-18 13:01 | disposition home or self-care (01) ==
LOC: HO.HMGCX 13:00
PROVIDERS: PCP Internal Medicine; Visit Provider Internal Medicine
DX: M25.512 Pain in left shoulder (principal); I48.19 Other persistent atrial fibrillation; I10 Essential (primary) hypertension; E78.5 Hyperlipidemia, unspecified; R73.9 Hyperglycemia, unspecified; Z79.01 Long term (current) use of anticoagulants; Z79.899 Other long term (current) drug therapy
CPT/HCPCS: 73030; 99212

== ENCOUNTER → 2025-02-18 14:02 | Outpatient (BNV) | payer MEDICARE, MEDICAID, SELFPAY | PROVIDERS: PCP Internal Medicine; Visit Provider Radiology Diagnostic Radiology | DX: M25.512 Pain in left shoulder (principal) | CPT/HCPCS: 73030 ==

== ENCOUNTER → 2025-03-19 08:25 | Outpatient (REF) | payer MEDICARE, MEDICAID, SELFPAY ==
--- NOTE | 2025-03-19 08:28 | HM_ITS ---
* Total monitoring time 3 days. * Underlying rhythm is atrial fibrillation with an average rate of 73/Min. * Rare ventricular ectopy. One episode of 4 beats. * Pauses noted, but does not reach significance. * No patient markers or diary events. MTDD
== END ==
LOC: HO.CARD 08:25
PROVIDERS: PCP Internal Medicine; Visit Provider Internal Medicine
DX: I48.19 Other persistent atrial fibrillation (principal)
CPT/HCPCS: 93242

== ENCOUNTER → 2025-03-19 08:28 | Outpatient (BNV) | payer MEDICARE, MEDICAID, SELFPAY | PROVIDERS: PCP Internal Medicine; Visit Provider Internal Medicine | DX: I48.19 Other persistent atrial fibrillation (principal) | CPT/HCPCS: 93244 ==